=== PATIENT | female | born 1950 | race Hispanic/Latino ===

== ENCOUNTER 2022-05-13 18:44 | Inpatient (IN) | payer MEDICARE, SELFPAY ==
[2022-05-13 19:59] VITALS: BP 127/58; PULSE 96; RESP 16; TEMP 39.6; O2SAT 99; BMI 21.2
--- NOTE | 2022-05-13 20:11 | DI.RAD.S_ITS ---
PROCEDURE: XR CHEST 1V INDICATIONS: suspected sepsis TECHNIQUE: One view of the chest was acquired. COMPARISON: None. FINDINGS: Surgical changes and devices: None. Lungs and pleura: There is hyperinflation of the lungs with flattening of the hemidiaphragms compatible with COPD. There are confluent left perihilar opacities. No pleural effusions or pneumothorax. Mediastinum: Mediastinal contours appear normal. Heart size is enlarged. Bones and chest wall: No suspicious bony lesions. Overlying soft tissues appear unremarkable. IMPRESSION: 1. Confluent left perihilar opacities suggestive of consolidation and pneumonia given clinical history. Dictated by: Geovany Booker M.D. on 05/13/2022 at 20:44 Approved by: Geovany Booker M.D. on 05/13/2022 at 20:44
[2022-05-13 20:47] LABS: Add Manual Diff / Slide Review NO; Basophils Absolute Auto 100 /uL (0-100); Basophils Percent Auto 0.4 % (0-2); Eosinophils Absolute Auto 0 /uL (0-450); Eosinophils Percent Auto 0.1 % (2-4); Hematocrit 30.4 % (36-46); Hemoglobin 10.1 g/dL (12.0-16.0); Lymphocytes Absolute Auto 2200 /uL (1100-4500); Lymphocytes Percent Auto 14.2 % (25-40); Mean Corpuscular HGB Conc 33.3 % (30-36); Mean Corpuscular Hemoglobin 34.7 PG (26-34); Mean Corpuscular Volume 104.1 fL (80-100); Monocytes Absolute Auto 1200 /uL (0-900); Monocytes Percent Auto 7.3 % (3-14); Neutrophils Absolute Auto 12300 /uL (1500-7000); Platelet Count 181 X10^3/uL (150-400); Red Blood Cell Count 2.92 X10^6/uL (4.0-5.2); Red Cell Distribution Width 14.2 % (11.6-14.8); White Blood Cell Count 15.8 X10^3/uL (4.5-11.0)
[2022-05-13 20:53] LABS: Lactate (Lactic Acid) 3.7 mmol/L (0.7-2.1)
[2022-05-13] MEDS: SODIUM CHLORIDE 0.9% 1,000 ML 1000 ML IV (20:53)
--- NOTE | 2022-05-13 20:55 | ED.FEVER ---
HPI - Fever General Chief Complaint: Fever Stated Complaint: fever t-3 possible pnemonia Time Seen by Provider: 05/13/22 19:14 Source: patient Mode of arrival: Ambulatory History of Present Illness HPI Narrative: 71-year-old female nonsmoker without chronic medical history presents with her family in the chief complaint of a few days of fever, shaking chills, shortness of breath, fatigue and productive cough. She is nauseated but denies any vomiting. She denies any headache, runny nose or sore throat. She has no abdominal pain or constipation. She is not been hospitalized for many years. Her fever has been as high as 103 and she admits to shaking, uncontrollable chills Related Data Home Medications Medication Instructions Recorded Confirmed No Known Home Medications 05/13/22 05/13/22 Allergies Allergy/AdvReac Type Severity Reaction Status Date / Time magnesium sulfate Allergy Unknown Verified 05/13/22 20:25 Review of Systems Review of Systems Narrative: GENERAL: See HPI HEENT: Denies sinus pain, ear pain, sore throat, difficulty swallowing, dizziness. RESPIRATORY: See HPI CARDIOVASCULAR: Denies chest pain, palpitations, orthopnea, edema, GASTROINTESTINAL: See HPI : Denies dysuria, frequency, incontinence, hematuria, urinary retention. MUSCULOSKELETAL: denies weakness, joint pain, or bony pain SKIN: Denies rash, skin lesions, or other NEUROLOGIC: Denies weakness, headache, numbness, change in speech, confusion, seizures, incoordination. PSYCHIATRIC: No concerning psychosocial issues. 12 point review of systems is negative except for those stated above Patient History Surgical History History of breast biopsy Family History (Updated 05/13/22 @ 22:14 by HAROON Yeager-MRACY) Mother Hypertension Father Heart attack Social History household members: family Smoking Status: Never smoker alcohol intake: never Smoking Status: Never smoker Exam Narrative Exam Narrative: GENERAL: [71] year old patient appears stated age. Well-developed patient, in mild distress. HEAD: Atraumatic. Normocephalic. EYES: Pupils equal round and reactive. Extraocular motions intact. No scleral icterus. No injection or drainage. ENT: Nose without bleeding, purulent drainage. Throat without erythema, tonsillar hypertrophy or exudate. Airway patent. NECK: Trachea midline. Non tender CARDIOVASCULAR: Tachycardic, regular rate rhythm without murmurs, gallops, or rubs. RESPIRATORY: Increased work of breathing with crackles in bilateral bases GASTROINTESTINAL: Abdomen soft, non-tender, nondistended. EXTREMITIES: No edema or joint tenderness. BACK: Nontender without deformity or crepitance. No flank tenderness. NEURO: AOx3. SKIN: No rash or erythema of visible areas Initial Vital Signs Initial Vital Signs: Vital Signs Temperature 103.2 F H 05/13/22 19:59 Pulse Rate 96 H 05/13/22 19:59 Respiratory Rate 16 05/13/22 19:59 Blood Pressure 127/58 L 05/13/22 19:59 Pulse Oximetry 99 05/13/22 19:59 Oxygen Delivery Method Room Air 05/13/22 19:59 Course Orders Ordered: ED Orders 05/13/22 20:11 XR chest 1V Stat EKG-12 Lead Stat RT Consult Eval and Treat NOW 05/13/22 20:25 Comprehensive Metabolic Panel Stat Lactate (Lactic Acid) Stat Lipase Stat Procalcitonin Stat 05/13/22 20:35 Complete Blood Count AUTO DIFF Stat PTT Partial Thromboplastin Edi Stat Prothrombin Time INR Stat 05/13/22 20:40 Blood Culture Stat COVID19 -Nasal RAPID Stat 05/13/22 20:55 Urine Culture Stat Urine Microscopic Stat Acetaminophen (Acetaminophen 325 Mg Tablet) 650 mg PO Q6H PRN PRN Reason: Fever/Mild Pain (1-3) Last Admin: 05/13/22 23:53 Dose: 650 mg Documented By: ZENY Albuterol/Ipratropium (Albuterol/Ipratropium 3 Ml Ampul) 3 ml INH [id number] [facility] Last Admin: 05/13/22 23:55 Dose: 3 ml Documented By: ELIS Benzonatate (Benzonatate 100 Mg Capsule) 100 mg PO TID PRN PRN Reason: Cough Calcium Carbonate (Calcium Carbonate 500 Mg Tab) 1,000 mg PO Q4HR PRN PRN Reason: Dyspepsia Enoxaparin Sodium (Enoxaparin 40 Mg/0.4 Ml Syringe) 40 mg SUBCUT DAILY [facility] Guaifenesin/Codeine Phosphate (Codeine/Guaifenesin Liquid 5ml Udc) 5 ml PO Q6H PRN PRN Reason: Cough Ceftriaxone Sodium 1,000 mg/ (Sodium Chloride) 100 mls @ 200 mls/hr IV Q24H [facility] Stop: 05/19/22 20:59 Azithromycin 500 mg/ Dextrose 250 mls @ 250 mls/hr IV Q24H [facility] Stop: 05/17/22 20:59 Sodium Chloride (Normal Saline 0.9%) 1,000 mls @ 125 mls/hr IV CONT [facility] Stop: 05/14/22 09:00 Last Admin: 05/13/22 22:47 Dose: 125 mls/hr Documented By: ZENY Naloxone HCl (Naloxone 0.4 Mg/Ml Vial) 0.2 mg IV Q2MIN PRN PRN Reason: Opiate Reversal Ondansetron HCl (Ondansetron 4 Mg Odt) 4 mg SL NOW PRN PRN Reason: Nausea And Vomiting Ondansetron HCl (Ondansetron 4 Mg/2 Ml Inj) 4 mg IV Q2HR PRN PRN Reason: Nausea And Vomiting Prednisone (Prednisone 20 Mg Tablet) 40 mg PO DAILY [facility] Stop: 05/17/22 08:59 Last Admin: 05/13/22 22:51 Dose: Not Given Documented By: ZENY Discontinued Medications Sodium Chloride (Normal Saline 0.9%) 1,000 mls @ 1,000 mls/hr IV BOLUS ONE Stop: 05/13/22 21:10 Last Admin: 05/13/22 20:53 Dose: 1,000 mls/hr Documented By: RB Sodium Chloride (Normal Saline 0.9%) 1,632.93 mls @ 544.31 mls/hr 30 ml/kg infuse over 3 hr (1632.93 ml) IV NOW ONE Stop: 05/13/22 23:54 Last Infusion: 05/13/22 22:23 Dose: 0 mls/hr Documented By: Admin: 05/13/22 20:59 Dose: 544.31 mls/hr Documented By: RB Ceftriaxone Sodium 2,000 mg/ (Sodium Chloride) 100 mls @ 200 mls/hr IV NOW ONE Stop: 05/13/22 20:56 Last Infusion: 05/13/22 21:48 Dose: 0 mls/hr Documented By: Admin: 05/13/22 21:13 Dose: 200 mls/hr Documented By: RB Azithromycin 500 mg/ Dextrose 250 mls @ 250 mls/hr IV NOW ONE Stop: 05/13/22 20:56 Last Admin: 05/14/22 00:20 Dose: 250 mls/hr Documented By: CS Ondansetron HCl (Ondansetron 4 Mg/2 Ml Inj) 4 mg IV NOW PRN PRN Reason: Nausea And Vomiting Vital Signs Vital signs: Vital Signs - 8 hr 05/13/22 19:59 05/13/22 21:05 Temperature 103.2 F H 103.2 F H Pulse Rate 96 H 97 H Respiratory Rate 16 24 Blood Pressure 127/58 L 140/65 Pulse Oximetry 99 98 Oxygen Delivery Method Room Air Room Air MDM - Fever Lab Data 05/13/22 20:35 05/13/22 20:25 Labs: Lab Results 05/13/22 05/13/22 05/13/22 Range/Units 20:25 20:25 20:35 WBC 15.8 H (4.5-11.0) X10^3/uL RBC 2.92 L (4.0-5.2) X10^6/uL Hgb 10.1 L (12.0-16.0) g/dL Hct 30.4 L (36-46) % MCV 104.1 H (80-100) fL MCH 34.7 H (26-34) PG MCHC 33.3 (30-36) % RDW 14.2 (11.6-14.8) % Plt Count 181 (150-400) X10^3/uL Neut % (Auto) 78.0 H (50-75) % Lymph % (Auto) 14.2 L (25-40) % [place] % (Auto) 7.3 (3-14) % Eos % (Auto) 0.1 L (2-4) % Baso % (Auto) 0.4 (0-2) % Neut # (Auto) 85590 H (8825-9951) /uL Lymph # (Auto) 2200 (1378-8611) /uL [place] # (Auto) 1200 H (0-900) /uL Eos # (Auto) 0 (0-450) /uL Baso # (Auto) 100 (0-100) /uL PT (10.1-12.7) SECONDS INR (0.9-1.3) APTT (26-36) SECONDS Sodium 129 L (137-145) mmol/L Potassium 4.2 (3.4-5.1) mmol/L Chloride 95 L (98-107) mmol/L Carbon Dioxide 20 L (22-32) mmol/L BUN 15 (7-17) mg/dL Creatinine 1.20 H (0.52-1.04) mg/dL Estimated GFR 49 L (>60) mL/min BUN/Creatinine Ratio 12.5 (6-22) Glucose 234 H (80-110) mg/dL Hemoglobin A1c (4.0-6.0) % Lactate 3.7 H (0.7-2.1) mmol/L Calcium 8.2 L (8.4-10.2) mg/dL Magnesium (1.6-2.3) mg/dL Total Bilirubin 1.6 H (0.2-1.3) mg/dL AST 35 (14-36) IU/L ALT 34 (<35) IU/L Alkaline Phosphatase 71 (38-126) U/L C-Reactive Protein (<1.0) mg/dL NT-Pro-B Natriuret Pep (<125) pg/mL Total Protein 9.4 H (6.3-8.2) g/dL Albumin 4.1 (3.5-5.0) g/dL Globulin 5.3 H (1.7-4.1) g/dL Albumin/Globulin Ratio 0.8 L (1.0-2.8) Lipase 296 (23-300) U/L Procalcitonin 1.37 H (<0.5) ng/mL Urine RBC (0-5/HPF) Urine WBC (0-5/HPF) Ur Squamous Epith Cells (0-5/HPF) Urine Bacteria (None) Micro UA Comment SARS-CoV-2 (PCR) (Negative) 05/13/22 05/13/22 05/13/22 Range/Units 20:35 20:35 20:35 WBC (4.5-11.0) X10^3/uL RBC (4.0-5.2) X10^6/uL Hgb (12.0-16.0) g/dL Hct (36-46) % MCV (80-100) fL MCH (26-34) PG MCHC (30-36) % RDW (11.6-14.8) % Plt Count (150-400) X10^3/uL Neut % (Auto) (50-75) % Lymph % (Auto) (25-40) % [place] % (Auto) (3-14) % Eos % (Auto) (2-4) % Baso % (Auto) (0-2) % Neut # (Auto) (0900-4220) /uL Lymph # (Auto) (1518-7260) /uL [place] # (Auto) (0-900) /uL Eos # (Auto) (0-450) /uL Baso # (Auto) (0-100) /uL PT 13.6 H (10.1-12.7) SECONDS INR 1.2 (0.9-1.3) APTT 38 H (26-36) SECONDS Sodium (137-145) mmol/L Potassium (3.4-5.1) mmol/L Chloride (98-107) mmol/L Carbon Dioxide (22-32) mmol/L BUN (7-17) mg/dL Creatinine (0.52-1.04) mg/dL Estimated GFR (>60) mL/min BUN/Creatinine Ratio (6-22) Glucose (80-110) mg/dL Hemoglobin A1c (4.0-6.0) % Lactate (0.7-2.1) mmol/L Calcium (8.4-10.2) mg/dL Magnesium (1.6-2.3) mg/dL Total Bilirubin (0.2-1.3) mg/dL AST (14-36) IU/L ALT (<35) IU/L Alkaline Phosphatase (38-126) U/L C-Reactive Protein 8.3 H (<1.0) mg/dL NT-Pro-B Natriuret Pep 1780 H (<125) pg/mL Total Protein (6.3-8.2) g/dL Albumin (3.5-5.0) g/dL Globulin (1.7-4.1) g/dL Albumin/Globulin Ratio (1.0-2.8) Lipase (23-300) U/L Procalcitonin (<0.5) ng/mL Urine RBC (0-5/HPF) Urine WBC (0-5/HPF) Ur Squamous Epith Cells (0-5/HPF) Urine Bacteria (None) Micro UA Comment SARS-CoV-2 (PCR) (Negative) 05/13/22 05/13/22 05/13/22 Range/Units 20:35 20:35 20:40 WBC (4.5-11.0) X10^3/uL RBC (4.0-5.2) X10^6/uL Hgb (12.0-16.0) g/dL Hct (36-46) % MCV (80-100) fL MCH (26-34) PG MCHC (30-36) % RDW (11.6-14.8) % Plt Count (150-400) X10^3/uL Neut % (Auto) (50-75) % Lymph % (Auto) (25-40) % [place] % (Auto) (3-14) % Eos % (Auto) (2-4) % Baso % (Auto) (0-2) % Neut # (Auto) (4727-8448) /uL Lymph # (Auto) (2010-0251) /uL [place] # (Auto) (0-900) /uL Eos # (Auto) (0-450) /uL Baso # (Auto) (0-100) /uL PT (10.1-12.7) SECONDS INR (0.9-1.3) APTT (26-36) SECONDS Sodium (137-145) mmol/L Potassium (3.4-5.1) mmol/L Chloride (98-107) mmol/L Carbon Dioxide (22-32) mmol/L BUN (7-17) mg/dL Creatinine (0.52-1.04) mg/dL Estimated GFR (>60) mL/min BUN/Creatinine Ratio (6-22) Glucose (80-110) mg/dL Hemoglobin A1c 7.3 H (4.0-6.0) % Lactate (0.7-2.1) mmol/L Calcium (8.4-10.2) mg/dL Magnesium 2.0 (1.6-2.3) mg/dL Total Bilirubin (0.2-1.3) mg/dL AST (14-36) IU/L ALT (<35) IU/L Alkaline Phosphatase (38-126) U/L C-Reactive Protein (<1.0) mg/dL NT-Pro-B Natriuret Pep (<125) pg/mL Total Protein (6.3-8.2) g/dL Albumin (3.5-5.0) g/dL Globulin (1.7-4.1) g/dL Albumin/Globulin Ratio (1.0-2.8) Lipase (23-300) U/L Procalcitonin (<0.5) ng/mL Urine RBC (0-5/HPF) Urine WBC (0-5/HPF) Ur Squamous Epith Cells (0-5/HPF) Urine Bacteria (None) Micro UA Comment SARS-CoV-2 (PCR) Negative (Negative) 05/13/22 Range/Units 20:55 WBC (4.5-11.0) X10^3/uL RBC (4.0-5.2) X10^6/uL Hgb (12.0-16.0) g/dL Hct (36-46) % MCV (80-100) fL MCH (26-34) PG MCHC (30-36) % RDW (11.6-14.8) % Plt Count (150-400) X10^3/uL Neut % (Auto) (50-75) % Lymph % (Auto) (25-40) % [place] % (Auto) (3-14) % Eos % (Auto) (2-4) % Baso % (Auto) (0-2) % Neut # (Auto) (8785-7830) /uL Lymph # (Auto) (5935-7198) /uL [place] # (Auto) (0-900) /uL Eos # (Auto) (0-450) /uL Baso # (Auto) (0-100) /uL PT (10.1-12.7) SECONDS INR (0.9-1.3) APTT (26-36) SECONDS Sodium (137-145) mmol/L Potassium (3.4-5.1) mmol/L Chloride (98-107) mmol/L Carbon Dioxide (22-32) mmol/L BUN (7-17) mg/dL Creatinine (0.52-1.04) mg/dL Estimated GFR (>60) mL/min BUN/Creatinine Ratio (6-22) Glucose (80-110) mg/dL Hemoglobin A1c (4.0-6.0) % Lactate (0.7-2.1) mmol/L Calcium (8.4-10.2) mg/dL Magnesium (1.6-2.3) mg/dL Total Bilirubin (0.2-1.3) mg/dL AST (14-36) IU/L ALT (<35) IU/L Alkaline Phosphatase (38-126) U/L C-Reactive Protein (<1.0) mg/dL NT-Pro-B Natriuret Pep (<125) pg/mL Total Protein (6.3-8.2) g/dL Albumin (3.5-5.0) g/dL Globulin (1.7-4.1) g/dL Albumin/Globulin Ratio (1.0-2.8) Lipase (23-300) U/L Procalcitonin (<0.5) ng/mL Urine RBC 0-1/hpf (0-5/HPF) Urine WBC None seen (0-5/HPF) Ur Squamous Epith Cells 0-1 /hpf (0-5/HPF) Urine Bacteria None seen (None) Micro UA Comment * SARS-CoV-2 (PCR) (Negative) Urine Dip Bedside Urine Glucose 1000 mg/dl Bedside Urine Bilirubin - Negative Bedside Urine Ketone - Negative Urine Specific [place] 1.015 Bedside Urine Occult Blood + Bedside Urine pH 6 Bedside Urine Protein ++ 100 Bedside Urine Urobilinogen - Negative Bedside Urine Nitrite - Negative Bedside Urine Leukocytes - Negative Esterase Imaging Data Chest x-ray: Radiologist's Impression: Multifocal pneumonia MDM Narrative Medical decision making narrative: [71] year old patient presents with fever, shaking chills, cough and shortness of breath Multiple etiologies for patient's symptoms considered including, but not limited to: [Sepsis due to pneumonia versus other] Prior Charts not available to be reviewed in our EMR Primary Historian: patient Labs reviewed and interpreted by myself: Leukocytosis with left shift, slightly anemic at 10 and 30, sodium 129, creatinine 1.2, lactate critically elevated at 3.7, procalcitonin still pending, COVID negative Imaging reviewed: Multifocal pneumonia Patient with fever, chills, cough and shortness of breath meets sepsis criteria and upon receipt of lactate met severe sepsis criteria, fluids at 30 cc/kilogram, antibiotics in the form of Rocephin and azithromycin, blood cultures all ordered and are pending, patient requires hospitalization for further treatment and stabilization of her condition Discharge Plan Departure Patient Disposition: Admitted As Inpatient Clinical Impression: Severe sepsis, Bilateral pneumonia Admit Date/Time: 05/13/22 21:11 Admit Provider: Sue Smart
[2022-05-13 20:56] LABS: INR 1.2 (0.9-1.3); Prothrombin Time 13.6 SECONDS (10.1-12.7)
[2022-05-13 20:59] LABS: PTT Partial Thromboplastin Tim 38 SECONDS (26-36)
[2022-05-13] MEDS: SODIUM CHLORIDE 0.9% 1,632.93 ML 544.31 ML IV (20:59)
[2022-05-13 21:02] LABS: Alanine Aminotransferase 34 IU/L (<35); Albumin 4.1 g/dL (3.5-5.0); Albumin Globulin Ratio 0.8 (1.0-2.8); Alkaline Phosphatase 71 U/L (38-126); Aspartate Aminotransferase 35 IU/L (14-36); BUN Creatinine Ratio 12.5 (6-22); Bilirubin Total 1.6 mg/dL (0.2-1.3); Blood Urea Nitrogen 15 mg/dL (7-17); Calcium 8.2 mg/dL (8.4-10.2); Carbon Dioxide 20 mmol/L (22-32); Chloride 95 mmol/L (98-107); Estimated Glomerular Filt Rate 49 mL/min (>60); Globulin 5.3 g/dL (1.7-4.1); Glucose 234 mg/dL (80-110); HEMOLYSIS < 15 (0-50); Lipase 296 U/L (23-300); Potassium 4.2 mmol/L (3.4-5.1); Sodium 129 mmol/L (137-145); Total Protein 9.4 g/dL (6.3-8.2)
[2022-05-13 21:05] VITALS: BP 140/65; PULSE 97; RESP 24; TEMP 39.6; O2SAT 98
[2022-05-13 21:05] LABS: COVID19 -Nasal RAPID Negative (Negative)
[2022-05-13] MEDS: cefTRIAXone 2,000 MG in SODIUM CHLORIDE 0.9% 100 ML 200 MG IV (21:13)
[2022-05-13 21:19] LABS: Procalcitonin 1.37 ng/mL (<0.5)
[2022-05-13 21:27] LABS: Bacteria Urine None Seen; RBC Urine 0-1/HPF (0-5/HPF); Squamous Epithelial Cell Urine 0-1 /HPF (0-5/HPF); WBC Urine None Seen (0-5/HPF)
--- NOTE | 2022-05-13 21:35 | P.HP_ITS ---
History of Present Illness History of Present Illness Date Patient Seen: 05/13/22 Time Patient Seen: 21:36 Chief complaint: fever t-3 possible pnemonia Narrative: Sruthi Fong is a 71-year-old female with no known medical history who takes no medications presented to the ED with 3l days of fever, body aches, chills, VARGAS, productive yellow cough, pleuritic chest pain from coughing, nausea, tachypneic, tachycardic, with fever and worsening shortness of breath. Patient's O2 saturations are in the 90s on room air but does become extensively short of breath with any sort of movement or getting up to the restroom. On admit patient denies changes in vision, difficulty swallowing, speech impairment, weakness, numbness, tingling, difficulty with ambulation, recent falls, head injury, LOC, recent exposure to illness, vomiting, urinary incontinence/retention, dysuria, frequency, urgency, hematuria, bowel changes, constipation, incontinence, melena, rashes, recent changes to medication, illness, injury, or trauma. Patient denies any cardiac or respiratory history nonsmoker, has been vaccinated against flu and COVID unsure as to pneumonia vaccination status. Admit temp 103.2?, 140/65, 97, 24, O2 saturation 98% on room air. WBC 15.8, notes 12,300, mono 1200, HGB 10 0.1/30.4, MCV 104.1, sodium 129, chloride 95, bicarb 20, creatinine 1.20, GFR 49, glucose 234-nothing in our records for comparison. Bili 1.6, calcium 8.2, lactate 3.7, procalcitonin 1.37, UA is pending, negative COVID. Chest x-ray confluent left perihilar opacities likely left lobe pneumonia. Patient admitted for sepsis without shock metabolic/infectious/renal with low-sodium and BUTCH hyperglycemia. Patient History Surgical History History of breast biopsy Family & Social History Family History (Updated 05/13/22 @ 22:14 by PIA Yeager) Mother Hypertension Father Heart attack Safety & Behavioral: Feels Safe in Current Yes Environment Been Physically Hurt or No Threatened By a Person Tobacco & Substance use: Smoking Status Never smoker Meds Home Medications and Allergies Home Medications Medication Instructions Recorded Confirmed Type No Known Home Medications 05/13/22 05/13/22 History Allergies Allergy/AdvReac Type Severity Reaction Status Date / Time magnesium sulfate Allergy Unknown Verified 05/13/22 20:25 Review of Systems Review of Systems Narrative: All 12 point systems reviewed with the patient and are negative except otherwise documented. Exam Vital Signs (past 8 hours): - 05/13/22 19:59 05/13/22 21:05 Temperature 103.2 F H 103.2 F H Pulse Rate 96 H 97 H Respiratory Rate 16 24 Blood Pressure 127/58 L 140/65 Pulse Oximetry 99 98 Oxygen Delivery Method Room Air Room Air Oxygen Delivery Method Room Air Narrative Exam Narrative: General: Patient is a thin small framed female, who initially after returning from the restroom was significantly short of breath tachypneic, but after resting in bed for a few minutes improved and was in no acute distress at this time. Patient appears quite volume depleted at this time. HEENT: Normocephalic, atraumatic, extraocular muscles intact, oral pharynx is clear and mucous membranes are dry. Neck is supple and symmetric, trachea is midline, no adenopathy, no thyroid enlargement, nontender, no masses palpated. Negative for JVD Chest: Normal AP diameter and contour without kyphoscoliosis, no nasal flaring, retractions, Positive tachypneic labored breathing with activity. Lungs: Auscultation of all lung collins crackles in bilateral bases Cardio: regular rate and rhythm without murmur, rubs, or gallops, no carotid bruit, no cardiac pulsations present. Abdomen: Soft nontender, negative for organomegaly, or masses. Bowel sounds are present in all 4 quadrants without guarding or rebound, no CVA tenderness. Musculoskeletal: Muscle strength and tone are equal within normal limits, no deformity, crepitus, effusions, cyanosis, clubbing or edema present. Full range of motion intact radial and pedal pulses are normal. Skin: Warm dry and intact without rashes, ulcerations or petechiae. Neuro: Alert and orientated x3, moves all extremities, sensation to touch intact, no gross deficits noted of cranial nerves. Psych: Patient has a well-kept appearance, appropriate affect, mental status attitude thought context and judgment are appropriate for age. Objective Labs 05/13/22 20:35 05/13/22 20:25 Labs: Laboratory Results - last 24 hr 05/13/22 05/13/22 05/13/22 20:25 20:25 20:35 WBC 15.8 H RBC 2.92 L Hgb 10.1 L Hct 30.4 L MCV 104.1 H MCH 34.7 H MCHC 33.3 RDW 14.2 Plt Count 181 Neut % (Auto) 78.0 H Lymph % (Auto) 14.2 L [place] % (Auto) 7.3 Eos % (Auto) 0.1 L Baso % (Auto) 0.4 Neut # (Auto) 84685 H Lymph # (Auto) 2200 [place] # (Auto) 1200 H Eos # (Auto) 0 Baso # (Auto) 100 PT INR APTT Sodium 129 L Potassium 4.2 Chloride 95 L Carbon Dioxide 20 L BUN 15 Creatinine 1.20 H Estimated GFR 49 L BUN/Creatinine Ratio 12.5 Glucose 234 H Lactate 3.7 H Calcium 8.2 L Total Bilirubin 1.6 H AST 35 ALT 34 Alkaline Phosphatase 71 Total Protein 9.4 H Albumin 4.1 Globulin 5.3 H Albumin/Globulin Ratio 0.8 L Lipase 296 Procalcitonin 1.37 H Urine RBC Urine WBC Ur Squamous Epith Cells Urine Bacteria Micro UA Comment SARS-CoV-2 (PCR) 05/13/22 05/13/22 05/13/22 20:35 20:40 20:55 WBC RBC Hgb Hct MCV MCH MCHC RDW Plt Count Neut % (Auto) Lymph % (Auto) [place] % (Auto) Eos % (Auto) Baso % (Auto) Neut # (Auto) Lymph # (Auto) [place] # (Auto) Eos # (Auto) Baso # (Auto) PT 13.6 H INR 1.2 APTT 38 H Sodium Potassium Chloride Carbon Dioxide BUN Creatinine Estimated GFR BUN/Creatinine Ratio Glucose Lactate Calcium Total Bilirubin AST ALT Alkaline Phosphatase Total Protein Albumin Globulin Albumin/Globulin Ratio Lipase Procalcitonin Urine RBC 0-1/hpf Urine WBC None seen Ur Squamous Epith Cells 0-1 /hpf Urine Bacteria None seen Micro UA Comment * SARS-CoV-2 (PCR) Negative Assessment & Plan Assessment & Plan narrative: Sruthi Fong is a 71-year-old female with no known medical history, who takes no medications who presented to the ED febrile, tachycardic, and tachypneic following 3 days of fever, cough, body aches, chills. Patient is admitted for sepsis without shock, secondary to left lobe pneumonia, BUTCH, hyperglycemia, and hyponatremia. Patient will require aggressive hydration, antibiotic therapy to be directed by cultures. 1. Sepsis without septic shock, metabolic/renal, acute, present on admission -likely CAP (left lower lobe pneumonia)-febrile, tachypneic, tachycardic-patient is not requiring oxygenation at this time no acute respiratory failure. -Sofa Score:2, Curb-65:1, Admit temp 103.2?, 140/65, 97, 24, O2 saturation 98% on room air. -WBC 15.8, notes 12,300, mono 1200, HGB 10 0.1/30.4, MCV 104.1, bili 1.6, lactate 3.7, procalcitonin 1.37, UA is pending, negative COVID. -Chest x-ray confluent left perihilar opacities likely left lobe pneumonia. -sepsis bolus initiated in ED along with azithromycin and Rocephin -blood cultures and sputum cultures ordered/pending -ordered repeat lactate, BNP, CRP, influenza a/B, RSV -continue azithromycin and Rocephin for anti pneumococcal beta-lactam and macrolide for coverage-pending cultures -antiemetics to control fever -respiratory consult: DuoNeb q.4 hours while awake, incentive spirometry, prednisone 40 mg p.o. q.day x4 days -Tessalon Perles, guaifenesin with codeine as needed 2. BUTCH with hyperglycemia, acute, present on admission -sodium 129, chloride 95, bicarb 20, creatinine 1.20, GFR 49, glucose 234- nothing in our records for comparison. -A1C ordered -avoid nephrotoxic medications -trend renal function -NS @125cc/hr over night following Sepsis bolus 3. Malnutrition, mild, severe, acute on chronic, present on admission -as evidence by BMI 20.3 -patient's malnutrition places them at high risk for medical and surgical complications in relation to acute illness/chronic illness. This increases the difficulty in complexity of medical management and increases the chances poor outcomes such as mortality and morbidity as well as impaired wound healing, and immune suppression. -dietary consult ordered to evaluate and implement steps to improve caloric intake and nutrition. Code status:Full Surrogate decision maker: Sister Annalee Freitas COVID PCR:Negative COVID vaccination: Fully vaccinated DVT/VTE prophylaxis: Lovenox and SCDs Disposition: Patient admitted to acute care for the treatment of likely community-acquired bacterial pneumonia, expected length of stay greater than 2 midnights. I have utilized all available immediate resources to obtain, update, or review the patient's current medications. I confirmed that the patient's advanced care plan is present, Code status is documented and/or surrogate decision maker is listed in the patient's medical record. I have personally reviewed patient's chart notes from PCP, specialists, diagnostic imaging, and laboratory results. Time Spent With Patient Critical Care time: I spent a total of [] minutes of critical care time on this patient's care today; this time is exclusive of procedural time.
[2022-05-13 22:05] VITALS: BP 147/73; PULSE 103; RESP 18; TEMP 36.9; O2SAT 97
[2022-05-13 22:10] LABS: NT-proBNP (BNP-Adult 18+) 1780 pg/mL (<125)
[2022-05-13 22:16] VITALS: BMI 20.2
[2022-05-13 22:21] VITALS: BP 147/72; PULSE 103; RESP 18; TEMP 36.9; O2SAT 98
[2022-05-13 22:32] LABS: Reflexed Lactate in 2 Hours Y
[2022-05-13] MEDS: SODIUM CHLORIDE 0.9% 1,000 ML 125 ML IV (22:47)
[2022-05-13 23:03] LABS: Lactate 2HR (Lactic Acid Rflx) 1.9 mmol/L (0.7-2.1)
[2022-05-13 23:29] LABS: Influenza A - CEPHEID Flu A NEGATIVE (NEGATIVE); Influenza B - CEPHEID Flu B NEGATIVE (NEGATIVE)
[2022-05-13 23:32] LABS: Respiratory Syncytial Virus Not Detected (Not Detect)
[2022-05-13] MEDS: ACETAMINOPHEN 325 MG TABLET 650 MG PO (23:53)
[2022-05-13 23:55] VITALS: PULSE 97; RESP 24; O2SAT 96
[2022-05-13] MEDS: ALBUTEROL/IPRATROPIUM 3 ML AMPUL INH (23:55)
[2022-05-14] VITALS (8 sets, daily range): BP systolic 109–136; BP diastolic 62–66; PULSE 76–99; RESP 16–18; TEMP 36.1–37.3; O2SAT 97–100; BMI 20.2
[2022-05-14] MEDS: AZITHROMYCIN 500 MG in DEXTROSE 5% IN WATER 250 ML 250 MG IV ×2 (00:20→20:49)
[2022-05-14 00:56] LABS: C-Reactive Protein Quant 8.3 mg/dL (<1.0)
[2022-05-14 00:59] LABS: Hemoglobin A1C% w Est Avg Glu 7.3 % (4.0-6.0)
[2022-05-14] MEDS: ALBUTEROL/IPRATROPIUM 3 ML AMPUL INH ×3 (07:29→22:37)
[2022-05-14 08:55] LABS: Add Manual Diff / Slide Review NO; Basophils Absolute Auto 100 /uL (0-100); Basophils Percent Auto 0.4 % (0-2); Eosinophils Absolute Auto 0 /uL (0-450); Hematocrit 27.5 % (36-46); Hemoglobin 8.9 g/dL (12.0-16.0); Lymphocytes Absolute Auto 3500 /uL (1100-4500); Lymphocytes Percent Auto 23.6 % (25-40); Mean Corpuscular HGB Conc 32.2 % (30-36); Mean Corpuscular Hemoglobin 34.2 PG (26-34); Mean Corpuscular Volume 106.2 fL (80-100); Monocytes Absolute Auto 1100 /uL (0-900); Monocytes Percent Auto 7.3 % (3-14); Neutrophils Absolute Auto 10200 /uL (1500-7000); Neutrophils Percent Auto 68.7 % (50-75); Platelet Count 152 X10^3/uL (150-400); Red Blood Cell Count 2.59 X10^6/uL (4.0-5.2); Red Cell Distribution Width 14.1 % (11.6-14.8); White Blood Cell Count 14.8 X10^3/uL (4.5-11.0)
--- NOTE | 2022-05-14 08:58 | PT.IIE ---
Current Diagnoses Sepsis, unspecified organism (05/13/22) Surgical History (Last Reviewed 05/13/22 @ 22:13 by HAROON Yeager-) History of breast biopsy Physical Therapy Inpatient Evaluation/Re-Eval M1 PT/OT-IP Prior Functional Status Start: 05/14/22 08:13 Freq: NEEDED Status: Active Protocol: Document 05/14/22 08:58 DLM (Rec: 05/14/22 09:08 DL [id number]) Medical Review Prior Functional Status Medical History Reviewed Yes Diet/Fluid Consistency Regular Communication WNL, glasses Mobility and Gait Independent without device in community Activities of Daily Living and IADL's Independent, drives, works as realtor Social History Household Members family Living Arrangements House Number of Floors (Floors) One Floor Number of Stairs To Enter/Railing? flight of steps to get in from garage Employment Status Self-Employed M2 PT-IP Current Condition Start: 05/14/22 08:13 Freq: NEEDED Status: Active Protocol: Document 05/14/22 08:58 DLM (Rec: 05/14/22 09:08 DL [id number]) Physical Therapy Current Condition Current Condition Evaluation Date 05/14/22 Treatment Diagnosis Pneumonia, decreased balance Onset Date 05/13/22 M3 PT-IP Subjective Start: 05/14/22 08:13 Freq: NEEDED Status: Active Protocol: Document 05/14/22 08:58 DLM (Rec: 05/14/22 09:08 DL [id number]) Subjective Physical Therapy Visit Type Type Initial Evaluation Visit Start Time 08:30 Visit Stop Time 08:58 Total Visit Minutes 28 Number of INDEPENDENT CROP CONSULTANT Visits 0 Physical Therapy Visit Comments Patient Comments She reports feeling better today. She was sick at home for at least 3 days before she came to the hospital. Patient Goals Return home Therapy Pain Assessment Pain When Pain Assessed During Mobility Pain Present Pain Present Denied Pain M4 PT-IP Mobility and Gait Start: 05/14/22 08:13 Freq: NEEDED Status: Active Protocol: Document 05/14/22 08:58 DLM (Rec: 05/14/22 09:08 DLM [id number]) PT-Bed Mobility Assessment Supine to Sit Supine to Sit Independent Sit to Supine Sit to Supine Independent Scooting Scooting to Edge of Bed Independent Scooting Up and Down in Bed Independent PT-Transfer Assessment Sit to and From Stand Sit to and from Stand Independent,Use of Upper Extremities Equipment Transfer Assistive Device None Transfers Transfer Destination Chair Transfer Technique Stand Step Pivot Transfer Ability Level of Assist Independent,Standby Assistance ,Use of Upper Extremities Gait Assessment Gait Gait Assistance Required: Standby Assistance Distance (Feet) 150 Able to Maintain Weight Bearing Status Yes During Gait Assistive Devices Assistive Device None Factors Limiting Gait Function Factors Limiting Gait Function Decreased Activity Tolerance, Poor Balance Comments Gait Comments lateral losse of balance with independent recovery during gait in the yang, mild shortness of breath during gait in the yang with mask on, O2 sats 99% when back in her room after gait Stair Climbing Assessment Comments Stair Climbing Comments did not complete this visit due to the arrival of breakfast and SOB during gait PT-Balance Assessment Sitting Balance and Reactions Static Sitting Balance Ability Normal Dynamic Sitting Balance Ability Normal Standing Balance and Reactions Static Standing Balance Ability Good Dynamic Standing Balance Ability Fair Device Used none M5 PT-IP Objective Assessments Start: 05/14/22 08:13 Freq: NEEDED Status: Active Protocol: Document 05/14/22 08:58 DLM (Rec: 05/14/22 09:08 DL [id number]) Orientation Orientation/Cognition Level of Alertness Alert Orientation Name,Age,Birthday,Month,Date, Year,Day of Week,Place, Situation Language Function Ability No Deficits Noted Memory Description No Deficits Noted Comments decreased awareness of need for safety in hospital environment, needs cuing for lines and how to decrease fall risks Gross Range of Motion Upper Extremity ROM Assessment Within Functional Limits Lower Extremity ROM Assessment Within Functional Limits Strength Upper Extremity Strength Assessment Within Functional Limits Lower Extremity Strength Assessment Within Functional Limits Coordination Assessment Gross Coordination Gross Coordination Impaired Assessment Finger to Nose Test Minimal Impairment Coordination Comments mild decrease in UE coordination she poured her sugar onto the tray missing her cup of coffee Sensation Assessment Sensation Gross Sensation Right LE Impaired,Left LE Impaired Sensation Description Numbness,Tingling Comments Sensation Comments she reports chronic numbness/ tinging in her feet, no changes today Muscle Tone Muscle Tone WNL Yes M6 PT-IP Treatment Start: 05/14/22 08:13 Freq: NEEDED Status: Active Protocol: Document 05/14/22 08:58 DLM (Rec: 05/14/22 09:08 DL [id number]) Physical Therapy Treatment Other Treatments Other Treatment Performed pt up to recliner and set up for breakfast M7 PT-IP Assessment and Plan Start: 05/14/22 08:13 Freq: NEEDED Status: Active Protocol: Document 05/14/22 08:58 DLM (Rec: 05/14/22 09:08 DLM [id number]) PT Summary Assessment and Plan Potential Rehabilitation Potential Good Status of Condition at Evaluation Evolving Summary Impairments Balance,Gait,Activity Tolerance Assessment Summary Sruthi is alert and resting in bed. She reports she did not sleep well due to noise from the hospital bed. She is feeling better today over-all. She is independent in bed mobility and transfers but shows decreased balance during gait without device. She had lateral losses of balance which she was able to self recover. Her losses of balance increase her risk for falls. She also needs assists to manage her lines during mobility. Pt has mild shortness of breath with gait in the yang with mask in place but O2 sats are WNL. She recovered well with seated rest break. Recommend 1-2 more physical therapy visits for gait and balance training. Will progress to stair training as her respiratory status continues to improve. Anticipate she will be safe to discharge home when medically stable. Goals Gait Goal Independent Gait Distance 250 feet Other Goals Up/down 10 steps with rail, independent Days to Meet Goals 3 Frequency of Treatment Frequency Of Treatment Once a Day Treatment Plan Physical Therapy Treatment Plan Gait Training,Therapeutic Exercise,Balance Retraining, Discharge Planning Other Recommendations and Next Treatment stair training as her Focus breathing improves Precautions Other Precautions monitor for shortness of breath Recommendations To Nursing Amount of Assist Needed Standby Assistance Discharge Recommendations PT Discharge Recommendations Home with Assistance Other Discharge Recommendations family support at discharge Transportation Needs at Discharge Private Vehicle
[2022-05-14 09:14] LABS: Alanine Aminotransferase 18 IU/L (<35); Albumin 3.1 g/dL (3.5-5.0); Albumin Globulin Ratio 0.7 (1.0-2.8); Alkaline Phosphatase 56 U/L (38-126); Aspartate Aminotransferase 26 IU/L (14-36); BUN Creatinine Ratio 14.3 (6-22); Bilirubin Total 0.8 mg/dL (0.2-1.3); Blood Urea Nitrogen 13 mg/dL (7-17); Calcium 7.2 mg/dL (8.4-10.2); Carbon Dioxide 18 mmol/L (22-32); Chloride 105 mmol/L (98-107); Estimated Glomerular Filt Rate > 60 mL/min (>60); Globulin 4.4 g/dL (1.7-4.1); Glucose 120 mg/dL (80-110); HEMOLYSIS < 15 (0-50); Potassium 3.7 mmol/L (3.4-5.1); Sodium 135 mmol/L (137-145); Total Protein 7.5 g/dL (6.3-8.2)
[2022-05-14 09:15] LABS: Lactate (Lactic Acid) 2.1 mmol/L (0.7-2.1)
[2022-05-14 09:47] LABS: INR 1.3 (0.9-1.3); Prothrombin Time 14.4 SECONDS (10.1-12.7)
[2022-05-14] MEDS: ENOXAPARIN 40 MG/0.4 ML SYRINGE SUBCUT (09:52)
[2022-05-14] MEDS: predniSONE 20 MG TABLET 40 MG PO (09:52)
[2022-05-14 10:23] LABS: Folate 13.6 ng/mL (2.76-20.0); Vitamin B12 624 pg/mL (239-931)
--- NOTE | 2022-05-14 10:28 | OT.IPNOTE ---
Pt here for PNA and states has no OT needs and able to give pt information for energy conservation, no charge.
[2022-05-14 10:50] LABS: Reflexed Lactate in 2 Hours Y
--- NOTE | 2022-05-14 11:03 | CM.DANOTE ---
DCP: Case received, EMR reviewed and met with patient. Introduced self and role. Was able to obtain information regarding patient's baseline activity status prior to hospitalization. DCP assessment completed with information currently available. Patient is a 71 year old female who admitted yesterday evening to the care of the hospitalist team. PCP: None currently Payer: confirmed: Medicare. Patient came to the hospital via private vehicle secondary to having chills, shortness of breath, fatigue. Patient has been febrile, temp up to 103. Patient was diagnosed with bilateral pneumonia. Patient also noted to have hyperglycemia, hyponatremia, BUTCH. Met with patient in her room. Prior, had been in the hallway ambulating with P.T. Confirmed that she resides in [place], has family nearby. 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 Confirmed that she does not have a primary care provider, asked her if she was interested in the list, she indicated, she could do her own research. P: DCP to continue to follow for needs. Plan is home when deemed medically stable. Arlene Garcia RN/Billet Shearer Discharge Planning/Care Management CM Discharge Assessment Start: 05/14/22 10:51 Freq: Status: Active Protocol: Document 05/14/22 10:53 (Rec: 05/14/22 10:54 [id number]) Discharge Planning Assessment Assigned Apprentice Arlene Garcia RN/Billet Shearer Advance Directives? No History Provided By Patient,Medical Record Prior Living Arrangements House Household Members family Type of transporation used prior to Drives own vehicle admit Independent with ADL's Yes Is patient alert and oriented? Yes Caregiver for Another No Barriers to Discharge No Comment Patient has no primary care provider, can give her resources Discharge Plan Home Transportation Arrangement Family Referrals Initiated None needed Whiteboard Updated in Patient Room with Yes name and ext. # of Apprentice Review Status In Process Next Review Type Continued Stay Review
[2022-05-14 11:15] LABS: Lactate 2HR (Lactic Acid Rflx) 3.2 mmol/L (0.7-2.1)
[2022-05-14 17:35] LABS: Lactate (Lactic Acid) 1.6 mmol/L (0.7-2.1)
--- NOTE | 2022-05-14 17:37 | PM.PN.1 ---
Subjective Subjective Interval history: 71-year-old female with known history of prediabetes was admitted last night with sepsis and presumed BUTCH secondary to community-acquired pneumonia Patient initially was febrile to 103.2. She was also noted to have a lactic acidosis. She was initiated on Rocephin and azithromycin. She is not required any oxygen. Overnight, she defervesced and has been afebrile. Reports she does not have a significant cough or sputum production. She does note she is feeling better. Exam Vital Signs (past 8 hours): - 05/14/22 13:00 Temperature 99.2 F Pulse Rate 87 Respiratory Rate 17 Blood Pressure 118/63 Pulse Oximetry 98 Oxygen Flow Rate 0 Fraction of Inspired Oxygen 21 SaO2/FiO2 Ratio 457 Oxygen Delivery Method Room Air Oxygen Flow Rate 0 Narrative Exam Narrative: GEN: Elderly female, Alert and oriented x 3, NAD HEENT:NC, Face symmetric CHEST: Respiratory excursions symmetric, mild bibasilar crackles, otherwise CTAB CV: RRR, no M/R/G ABD: Soft, NT/ND, BT present in all 4 quadrants, no organomegaly or masses EXTR: warm, well perfused, no C/C/E SKIN: warm and dry, no rash NEURO: Alert and oriented x 3, nonfocal Objective Labs 05/14/22 08:25 05/14/22 08:25 Labs: Laboratory Results - last 24 hr 05/13/22 05/13/22 05/13/22 20:25 20:25 20:35 WBC 15.8 H RBC 2.92 L Hgb 10.1 L Hct 30.4 L MCV 104.1 H MCH 34.7 H MCHC 33.3 RDW 14.2 Plt Count 181 Neut % (Auto) 78.0 H Lymph % (Auto) 14.2 L Harris % (Auto) 7.3 Eos % (Auto) 0.1 L Baso % (Auto) 0.4 Neut # (Auto) 05397 H Lymph # (Auto) 2200 Harris # (Auto) 1200 H Eos # (Auto) 0 Baso # (Auto) 100 PT INR APTT Sodium 129 L Potassium 4.2 Chloride 95 L Carbon Dioxide 20 L BUN 15 Creatinine 1.20 H Estimated GFR 49 L BUN/Creatinine Ratio 12.5 Glucose 234 H Hemoglobin A1c Lactate 3.7 H Calcium 8.2 L Magnesium Total Bilirubin 1.6 H AST 35 ALT 34 Alkaline Phosphatase 71 C-Reactive Protein NT-Pro-B Natriuret Pep Total Protein 9.4 H Albumin 4.1 Globulin 5.3 H Albumin/Globulin Ratio 0.8 L Lipase 296 Vitamin B12 Folate Procalcitonin 1.37 H Urine RBC Urine WBC Ur Squamous Epith Cells Urine Bacteria Micro UA Comment SARS-CoV-2 (PCR) Influenza A (RT-PCR) Influenza B (RT-PCR) RSV (PCR) 05/13/22 05/13/22 05/13/22 20:35 20:35 20:35 WBC RBC Hgb Hct MCV MCH MCHC RDW Plt Count Neut % (Auto) Lymph % (Auto) Harris % (Auto) Eos % (Auto) Baso % (Auto) Neut # (Auto) Lymph # (Auto) Harris # (Auto) Eos # (Auto) Baso # (Auto) PT 13.6 H INR 1.2 APTT 38 H Sodium Potassium Chloride Carbon Dioxide BUN Creatinine Estimated GFR BUN/Creatinine Ratio Glucose Hemoglobin A1c Lactate Calcium Magnesium Total Bilirubin AST ALT Alkaline Phosphatase C-Reactive Protein 8.3 H NT-Pro-B Natriuret Pep 1780 H Total Protein Albumin Globulin Albumin/Globulin Ratio Lipase Vitamin B12 Folate Procalcitonin Urine RBC Urine WBC Ur Squamous Epith Cells Urine Bacteria Micro UA Comment SARS-CoV-2 (PCR) Influenza A (RT-PCR) Influenza B (RT-PCR) RSV (PCR) 05/13/22 05/13/22 05/13/22 20:35 20:35 20:40 WBC RBC Hgb Hct MCV MCH MCHC RDW Plt Count Neut % (Auto) Lymph % (Auto) Harris % (Auto) Eos % (Auto) Baso % (Auto) Neut # (Auto) Lymph # (Auto) Harris # (Auto) Eos # (Auto) Baso # (Auto) PT INR APTT Sodium Potassium Chloride Carbon Dioxide BUN Creatinine Estimated GFR BUN/Creatinine Ratio Glucose Hemoglobin A1c 7.3 H Lactate Calcium Magnesium 2.0 Total Bilirubin AST ALT Alkaline Phosphatase C-Reactive Protein NT-Pro-B Natriuret Pep Total Protein Albumin Globulin Albumin/Globulin Ratio Lipase Vitamin B12 Folate Procalcitonin Urine RBC Urine WBC Ur Squamous Epith Cells Urine Bacteria Micro UA Comment SARS-CoV-2 (PCR) Negative Influenza A (RT-PCR) Influenza B (RT-PCR) RSV (PCR) 05/13/22 05/13/22 05/13/22 20:55 22:42 22:48 WBC RBC Hgb Hct MCV MCH MCHC RDW Plt Count Neut % (Auto) Lymph % (Auto) Harris % (Auto) Eos % (Auto) Baso % (Auto) Neut # (Auto) Lymph # (Auto) Harris # (Auto) Eos # (Auto) Baso # (Auto) PT INR APTT Sodium Potassium Chloride Carbon Dioxide BUN Creatinine Estimated GFR BUN/Creatinine Ratio Glucose Hemoglobin A1c Lactate 1.9 Calcium Magnesium Total Bilirubin AST ALT Alkaline Phosphatase C-Reactive Protein NT-Pro-B Natriuret Pep Total Protein Albumin Globulin Albumin/Globulin Ratio Lipase Vitamin B12 Folate Procalcitonin Urine RBC 0-1/hpf Urine WBC None seen Ur Squamous Epith Cells 0-1 /hpf Urine Bacteria None seen Micro UA Comment * SARS-CoV-2 (PCR) Influenza A (RT-PCR) Flu a negative Influenza B (RT-PCR) Flu b negative RSV (PCR) 05/13/22 05/14/22 05/14/22 22:48 08:25 08:25 WBC 14.8 H RBC 2.59 L Hgb 8.9 L Hct 27.5 L MCV 106.2 H MCH 34.2 H MCHC 32.2 RDW 14.1 Plt Count 152 Neut % (Auto) 68.7 Lymph % (Auto) 23.6 L Harris % (Auto) 7.3 Eos % (Auto) 0.0 L Baso % (Auto) 0.4 Neut # (Auto) 71993 H Lymph # (Auto) 3500 Harris # (Auto) 1100 H Eos # (Auto) 0 Baso # (Auto) 100 PT 14.4 H INR 1.3 APTT Sodium Potassium Chloride Carbon Dioxide BUN Creatinine Estimated GFR BUN/Creatinine Ratio Glucose Hemoglobin A1c Lactate Calcium Magnesium Total Bilirubin AST ALT Alkaline Phosphatase C-Reactive Protein NT-Pro-B Natriuret Pep Total Protein Albumin Globulin Albumin/Globulin Ratio Lipase Vitamin B12 Folate Procalcitonin Urine RBC Urine WBC Ur Squamous Epith Cells Urine Bacteria Micro UA Comment SARS-CoV-2 (PCR) Influenza A (RT-PCR) Influenza B (RT-PCR) RSV (PCR) Not detected 05/14/22 05/14/22 05/14/22 08:25 08:25 08:25 WBC RBC Hgb Hct MCV MCH MCHC RDW Plt Count Neut % (Auto) Lymph % (Auto) Harris % (Auto) Eos % (Auto) Baso % (Auto) Neut # (Auto) Lymph # (Auto) Harris # (Auto) Eos # (Auto) Baso # (Auto) PT INR APTT Sodium 135 L Potassium 3.7 Chloride 105 Carbon Dioxide 18 L BUN 13 Creatinine 0.91 Estimated GFR > 60 BUN/Creatinine Ratio 14.3 Glucose 120 H D Hemoglobin A1c Lactate 2.1 Calcium 7.2 L Magnesium Total Bilirubin 0.8 AST 26 ALT 18 Alkaline Phosphatase 56 C-Reactive Protein NT-Pro-B Natriuret Pep Total Protein 7.5 Albumin 3.1 L Globulin 4.4 H Albumin/Globulin Ratio 0.7 L Lipase Vitamin B12 624 Folate 13.6 Procalcitonin Urine RBC Urine WBC Ur Squamous Epith Cells Urine Bacteria Micro UA Comment SARS-CoV-2 (PCR) Influenza A (RT-PCR) Influenza B (RT-PCR) RSV (PCR) 05/14/22 05/14/22 10:55 17:15 WBC RBC Hgb Hct MCV MCH MCHC RDW Plt Count Neut % (Auto) Lymph % (Auto) Harris % (Auto) Eos % (Auto) Baso % (Auto) Neut # (Auto) Lymph # (Auto) Harris # (Auto) Eos # (Auto) Baso # (Auto) PT INR APTT Sodium Potassium Chloride Carbon Dioxide BUN Creatinine Estimated GFR BUN/Creatinine Ratio Glucose Hemoglobin A1c Lactate 3.2 H 1.6 Calcium Magnesium Total Bilirubin AST ALT Alkaline Phosphatase C-Reactive Protein NT-Pro-B Natriuret Pep Total Protein Albumin Globulin Albumin/Globulin Ratio Lipase Vitamin B12 Folate Procalcitonin Urine RBC Urine WBC Ur Squamous Epith Cells Urine Bacteria Micro UA Comment SARS-CoV-2 (PCR) Influenza A (RT-PCR) Influenza B (RT-PCR) RSV (PCR) [facility] Surgical History History of breast biopsy Family History (Updated 05/13/22 @ 22:14 by PIA Yeager) Mother Hypertension Father Heart attack Social History household members: family Smoking Status: Never smoker alcohol intake: never Assessment & Plan Assessment & Plan narrative: 1. Sepsis secondary to pneumonia Patient admitted meeting criteria for sepsis as evidenced by fever, lactic acidosis, tachycardia, tachypnea, and evidence of left perihilar pneumonia. Lactic acidosis was improving but is now up again this morning to 3.2. Blood and urine cultures were drawn and are pending at this time. Plan to continue ceftriaxone and azithromycin and repeat lactate level this afternoon. Overall, it appears her sepsis physiology has resolved. Her leukocytosis has improved from 15.8-14.8. 2. Left perihilar pneumonia, community-acquired As noted, patient is receiving Rocephin and azithromycin for community acquired pneumonia. Blood cultures pending. She is not requiring any oxygen therapy. She is uncertain if she has previously received the pneumonia vaccine. Given her age would definitely benefit from vaccination. 3. Diabetes mellitus type 2 Patient reports a history of known prediabetes. Her hemoglobin A1c is now 7.3%. Discussed that with improved dietary control and exercise, it is possible she will not require any additional treatment. She will need to establish with a primary care provider for further management. I have placed her on fingersticks and sliding scale and will monitor closely. 4. Mild malnutrition Patient does not report any history of inadequate food intake. Her BMI is within normal limits. I suspect she does not meet criteria for mild malnutrition. 5. Macrocytic anemia MCV is significantly elevated between 104 and 106. Hemoglobin was 10.1 on admission, 8.9 today. Suspect a component of hemodilution. Will send B12 and folate levels. This could also represent early blood dyscrasia. She again will need close outpatient follow-up and to establish with a PCP. 6. Hyponatremia Improving 7. Hyperbilirubinemia Bilirubin was 1.6 on admission. It has normalized at 0.8 today. No further follow-up. 8. BUTCH Resolved. Creatinine was 1.2 on admission. With hydration it is improved and down to 0.91. Code status Full Prophylaxis On Lovenox Disposition Likely home tomorrow Time Spent With Patient Critical Care time: I spent a total of [] minutes of critical care time on this patient's care today; this time is exclusive of procedural time. Quality VTE Deep Vein Thrombosis/Pulmonary Embolism Present on Admission: No
[2022-05-14] MEDS: cefTRIAXone 1,000 MG in SODIUM CHLORIDE 0.9% 100 ML 200 MG IV (20:48)
[2022-05-15 00:26] VITALS: BP 119/63; PULSE 97; RESP 18; TEMP 36.6; O2SAT 99
[2022-05-15 06:00] VITALS: BP 110/62; PULSE 77; RESP 20; TEMP 36.6; O2SAT 98
[2022-05-15 06:21] LABS: Add Manual Diff / Slide Review NO; Basophils Absolute Auto 100 /uL (0-100); Basophils Percent Auto 0.7 % (0-2); Eosinophils Absolute Auto 0 /uL (0-450); Hematocrit 26.4 % (36-46); Hemoglobin 8.9 g/dL (12.0-16.0); Lymphocytes Absolute Auto 2200 /uL (1100-4500); Lymphocytes Percent Auto 21.8 % (25-40); Mean Corpuscular HGB Conc 33.8 % (30-36); Mean Corpuscular Hemoglobin 35.1 PG (26-34); Mean Corpuscular Volume 103.9 fL (80-100); Monocytes Absolute Auto 600 /uL (0-900); Neutrophils Absolute Auto 7200 /uL (1500-7000); Neutrophils Percent Auto 71.5 % (50-75); Platelet Count 172 X10^3/uL (150-400); Red Blood Cell Count 2.54 X10^6/uL (4.0-5.2); Red Cell Distribution Width 14.2 % (11.6-14.8); White Blood Cell Count 10.1 X10^3/uL (4.5-11.0)
[2022-05-15 06:23] LABS: Alanine Aminotransferase 19 IU/L (<35); Albumin 3.3 g/dL (3.5-5.0); Albumin Globulin Ratio 0.7 (1.0-2.8); Alkaline Phosphatase 56 U/L (38-126); Aspartate Aminotransferase 31 IU/L (14-36); BUN Creatinine Ratio 27.1 (6-22); Bilirubin Total 0.6 mg/dL (0.2-1.3); Blood Urea Nitrogen 23 mg/dL (7-17); Carbon Dioxide 18 mmol/L (22-32); Chloride 107 mmol/L (98-107); Estimated Glomerular Filt Rate > 60 mL/min (>60); Globulin 4.7 g/dL (1.7-4.1); Glucose 125 mg/dL (80-110); HEMOLYSIS < 15 (0-50); Potassium 4.3 mmol/L (3.4-5.1); Sodium 132 mmol/L (137-145)
[2022-05-15] MEDS: predniSONE 20 MG TABLET 40 MG PO (08:43)
[2022-05-15 09:49] VITALS: BP 131/76; PULSE 89; RESP 16; TEMP 36.4; O2SAT 99
--- NOTE | 2022-05-15 10:45 | PT.IPTN ---
Current Diagnoses Sepsis, unspecified organism (05/13/22) Physical Therapy Treatment Note M2 PT-IP Current Condition Start: 05/14/22 08:13 Freq: NEEDED Status: Active Protocol: Document 05/14/22 08:58 DLM (Rec: 05/14/22 09:08 DLM [id number]) Physical Therapy Current Condition Current Condition Evaluation Date 05/14/22 Treatment Diagnosis Pneumonia, decreased balance Onset Date 05/13/22 M3 PT-IP Subjective Start: 05/14/22 08:13 Freq: NEEDED Status: Active Protocol: Document 05/15/22 10:35 DCW (Rec: 05/15/22 10:51 DCW [id number]) Subjective Physical Therapy Visit Type Type Treatment Note Visit Start Time 10:35 Visit Stop Time 10:45 Total Visit Minutes 10 Notes Pt up walking around room independently, feels a little tired, but largely has returned to baseline. No noticeable instability, completely independent within room. Number of [employer]LE[employer] SYSTEMS ARCHITECT Visits 0 Therapy Pain Assessment Pain Present Pain Present Denied Pain M4 PT-IP Mobility and Gait Start: 05/14/22 08:13 Freq: NEEDED Status: Active Protocol: Document 05/15/22 10:35 DCW (Rec: 05/15/22 10:51 DCW [id number]) Gait Assessment Gait Gait Assistance Required: Independent Distance (Feet) 150 Able to Maintain Weight Bearing Status Yes During Gait Comments Gait Comments No instability, pt abulating while talking to therapist and responding to text messages from family, no SOB. Stair Climbing Assessment Evaluation Level of Assist On Stairs Independent Devices Stair Climbing Assistive Devices None Technique/Endurance Stair Climbing Direction Ascend and Descend Stair Climbing Technique Step Over Step Number of Steps Climbed 3 Comments Stair Climbing Comments No SOB M5 PT-IP Objective Assessments Start: 05/14/22 08:13 Freq: NEEDED Status: Active Protocol: Document 05/14/22 08:58 DLM (Rec: 05/14/22 09:08 DLM [id number]) Orientation Orientation/Cognition Level of Alertness Alert Orientation Name,Age,Birthday,Month,Date, Year,Day of Week,Place, Situation Language Function Ability No Deficits Noted Memory Description No Deficits Noted Comments decreased awareness of need for safety in hospital environment, needs cuing for lines and how to decrease fall risks Gross Range of Motion Upper Extremity ROM Assessment Within Functional Limits Lower Extremity ROM Assessment Within Functional Limits Strength Upper Extremity Strength Assessment Within Functional Limits Lower Extremity Strength Assessment Within Functional Limits Coordination Assessment Gross Coordination Gross Coordination Impaired Assessment Finger to Nose Test Minimal Impairment Coordination Comments mild decrease in UE coordination she poured her sugar onto the tray missing her cup of coffee Sensation Assessment Sensation Gross Sensation Right LE Impaired,Left LE Impaired Sensation Description Numbness,Tingling Comments Sensation Comments she reports chronic numbness/ tinging in her feet, no changes today Muscle Tone Muscle Tone WNL Yes M6 PT-IP Treatment Start: 05/14/22 08:13 Freq: NEEDED Status: Active Protocol: Document 05/14/22 08:58 DLM (Rec: 05/14/22 09:08 DLM [id number]) Physical Therapy Treatment Other Treatments Other Treatment Performed pt up to recliner and set up for breakfast M7 PT-IP Assessment and Plan Start: 05/14/22 08:13 Freq: NEEDED Status: Active Protocol: Document 05/15/22 10:35 DCW (Rec: 05/15/22 10:51 DCW [id number]) PT Summary Assessment and Plan Summary Assessment Summary Pt up and independently mobile in room, notably more stable and no complaints of SOB. Pt agreeable to ambulate in yang and trial of stairs prior to discharge today. Able to ambulate total of 150' in yang independently with no AD, ascend/descend stairs no AD, no railing, without any loss of balance or SOB, O2 sat remained at 95% entire time on room air. Pt appropriate to return home from PT/safet perspective when medically cleared, no longer required further in-patient PT. Frequency of Treatment Frequency Of Treatment Discharge Discharge Recommendations PT Discharge Recommendations Home with Assistance Other Discharge Recommendations family support at discharge Transportation Needs at Discharge Private Vehicle
--- NOTE | 2022-05-15 11:38 | PC.NURSE ---
Addendum entered by Radha Madison R.N. 05/15/22 12:47: patient still eating lunch, awaiting arrival of her ride. confirmed she called scripts to [facility]. report to [place] [facility]. Original Note: 1000: discharge paperwork reviewed w/ patient. each section of the d/c packet was explained to Stella. 2 paper scripts given for cedifiner & azithromax. patient states she understands the d/c packet. would like to stay and have lunch as her ride will be here approx 1300.
--- NOTE | 2022-05-15 16:29 | P.DS_ITS ---
History of Present Illness History of Present Illness Chief complaint: fever t-3 possible pnemonia Narrative: Per history and physical: Sruthi Fong is a 71-year-old female with no known medical history who takes no medications presented to the ED with 3l days of fever, body aches, chills, VARGAS, productive yellow cough, pleuritic chest pain from coughing, nausea, tachypneic, tachycardic, with fever and worsening shortness of breath.? Patient's O2 saturations are in the 90s on room air but does become extensively short of breath with any sort of movement or getting up to the restroom. ?On admit patient denies changes in vision, difficulty swallowing, speech impairment, weakness, numbness, tingling, difficulty with ambulation, recent falls, head injury, LOC, recent exposure to illness, vomiting, urinary incontinence/retention, dysuria, frequency, urgency, hematuria, bowel changes, constipation, incontinence, melena, rashes, recent changes to medication, illness, injury, or trauma.? Patient denies any cardiac or respiratory history nonsmoker, has been vaccinated against flu and COVID unsure as to pneumonia vaccination status. Admit temp 103.2?, 140/65, 97, 24, O2 saturation 98% on room air.? WBC 15.8, notes 12,300, mono 1200, HGB 10 0.1/30.4, MCV 104.1, sodium 129, chloride 95, bicarb 20, creatinine 1.20, GFR 49, glucose 234-nothing in our records for comparison.? Bili 1.6, calcium 8.2, lactate 3.7, procalcitonin 1.37, UA is pending, negative COVID.? Chest x-ray confluent left perihilar opacities likely left lobe pneumonia.? Patient admitted for sepsis without shock metabolic/infectious/renal with low-sodium and BUTCH hyperglycemia. Discharge Providers Provider Date of admission: 05/13/22 21:11 Discharge Date: 05/15/22 Primary care physician: Doctor Marjan MD Consults: 05/13/22 21:32 Consult to Dietitian, Adult Routine Comment: Reason For Exam: BMI 21.3 Consult to Occupational Therapy Evaluate & Treat Comment: Physician Instructions: Evaluate and treat Consult to Physical Therapy Evaluate & Treat Comment: Physician Instructions: Evaluate and Treat Discharge provider: Jessica Stanton MD Summary Hospital Course Discharge Diagnosis: Sepsis secondary to pneumonia, resolved Left perihilar pneumonia, community-acquired, improving Diabetes mellitus type 2 with hemoglobin A1c of 7.3%, new diagnosis (previously known to be prediabetic) Mild malnutrition-ruled out Macrocytic anemia, normal B12 and folate levels, will need outpatient follow-up Hyponatremia mild at 132 at discharge Hyperbilirubinemia, resolved, likely secondary to sepsis BUTCH, resolved Hospital Course: Patient presented after several days of fevers and chills at home. She would a friend bring her to the hospital due to ongoing symptoms. She presented with fever of 103.2, lactic acidosis, evidence of BUTCH, as well as leukocytosis. Either day following admission she reported feeling significantly improved. She actually had requested discharge home at that time, but her lactate had normalized and subsequently come up to 3.2 that morning. After further discussion with the patient she agreed to remain in the hospital. Follow-up lactate that afternoon once again had normalized. Patient remained stable, afebrile, and did not require oxygen therapy. At the time of discharge, she denied significant ongoing respiratory symptoms. She was ambulating without difficulty. Normal room-air sats. During her hospital stay she was noted to have elevated blood sugars. Hemoglobin A1c resulted at 7.3% consistent with diabetes. She would previously known that she had a prediabetic state. We did discuss modifying her diet and increasing her activity when she has recovered from pneumonia. She expresses agreement. Furthermore, she was noted to have macrocytic anemia during her hospitalization. She would no known history of anemia. B12 and folate were within normal limits. Discussed the importance of following up for additional workup: Inclusive of a hematology consult. She agrees. Patient is discharged in stable condition. Status at Discharge Overall status at discharge: patient is progressing back to baseline Time Spent with Patient Time spent: Greater than 30 minutes Exam Vital Signs (past 8 hours): - 05/15/22 09:49 Temperature 97.6 F Pulse Rate 89 Respiratory Rate 16 Blood Pressure 131/76 Pulse Oximetry 99 Fraction of Inspired Oxygen 21 SaO2/FiO2 Ratio 461 Oxygen Delivery Method Room Air Oxygen Flow Rate 0 Narrative Exam Narrative: GEN:? Elderly female, Alert and oriented x 3, NAD HEENT:NC, Face symmetric CHEST: Respiratory excursions symmetric, mild bibasilar crackles, otherwise CTAB CV: RRR, no M/R/G ABD: Soft, NT/ND, BT present in all 4 quadrants, no organomegaly or masses EXTR: warm, well perfused, no C/C/E SKIN: warm and dry, no rash NEURO: Alert and oriented x 3, nonfocal Objective Labs 05/15/22 06:04 05/15/22 06:04 Labs: Laboratory Results - last 24 hr 05/14/22 05/15/22 05/15/22 17:15 06:04 06:04 WBC 10.1 RBC 2.54 L Hgb 8.9 L Hct 26.4 L MCV 103.9 H MCH 35.1 H MCHC 33.8 RDW 14.2 Plt Count 172 Neut % (Auto) 71.5 Lymph % (Auto) 21.8 L Kidder % (Auto) 6.0 Eos % (Auto) 0.0 L Baso % (Auto) 0.7 Neut # (Auto) 7200 H Lymph # (Auto) 2200 Kidder # (Auto) 600 Eos # (Auto) 0 Baso # (Auto) 100 Sodium 132 L Potassium 4.3 Chloride 107 Carbon Dioxide 18 L BUN 23 H Creatinine 0.85 Estimated GFR > 60 BUN/Creatinine Ratio 27.1 H Glucose 125 H Lactate 1.6 Calcium 8.0 L Total Bilirubin 0.6 AST 31 ALT 19 Alkaline Phosphatase 56 Total Protein 8.0 Albumin 3.3 L Globulin 4.7 H Albumin/Globulin Ratio 0.7 L PFSH Surgical History History of breast biopsy Family History (Updated 05/13/22 @ 22:14 by PIA Yeager) Mother Hypertension Father Heart attack Social History household members: family Smoking Status: Never smoker alcohol intake: never Discharge Plan Discharge Plan Patient Disposition: Home Provider Discharge Comment: Continue to monitor your symptoms. Return to the ED for recurrent fevers, shortness of breath, or inability to hold down food or fluids. You need to establish with a PCP for follow-up on your diabetes (Hemoglobin A1C 7.3%) and anemia (Hemoglobin 8.9, Hematocrit 26.4%). You should get a referral to hematology for further evaluation of your anemia. You should also check to see if you are up to date on your pneumonia vaccine. If not, please get the vaccine. Nursing Discharge Comment: call 911/return to ER if symptoms that brought you to the hospital return. signs and symptoms to monitor: fever greater than 101F, shortness of breath, p ainful breaths not relieved by pain medication. continue to use your incentive spirometer and flutter valve, you did really good on reaching your goals yesterday! continue to do the turn, cough and deep breathe (or hum) to keep the air in your lungs moving around. it was a pleasure to be your nurse this weekend, please take care of yourself & enjoy the rest of your day! Discharge orders & Medications Prescriptions: New cefdinir 300 mg capsule 300 mg PO BID Qty: 10 0RF azithromycin 500 mg tablet 500 mg PO DAILY 3 Days Qty: 3 0RF Follow up/Referrals: Miscellaneous,Doctor, [Primary Care Provider] - Diet/Activity/Treatments Diet: Diet as Tolerated and Carb-consistent/Diabetic Activity: As tolerated, increase your activity level to help improve your blood sugars Oxygen: N/A Visit Report/Discharge Packet Instructions: Pneumonia-Adult, Anemia, DI for Pneumonia -- Adult, DI for Sepsis -- Adult, Prednisone, Cefdinir Stand Alone Forms: Patient Portal/API, Stroke Signs & Symptoms Discharge Data Primary Care Provider: Doctor Marjan Quality VTE Deep Vein Thrombosis/Pulmonary Embolism Present on Admission: No
== END 2022-05-15 13:30 | disposition home or self-care (01) | DRG 871 ==
LOC: ED 21:07 → AC 21:13
PROVIDERS: Family Medicine; Admitting Provider Nurse Practitioner Family; Emergency Provider Emergency Medicine; Referring Provider Emergency Medicine; Visit Provider Nurse Practitioner Family
DX: A41.9 Sepsis, unspecified organism (principal); J18.9 Pneumonia, unspecified organism; N17.9 Acute kidney failure, unspecified; E11.65 Type 2 diabetes mellitus with hyperglycemia; D64.9 Anemia, unspecified; R65.20 Severe sepsis without septic shock; Z20.822 Contact with and (suspected) exposure to COVID-19
CPT/HCPCS: 36415; 71045; 80053; 81003; 81015; 82607; 82746; 82962; 83036; 83605; 83690; 83735; 83880; 84145; 85025; 85610; 85730; 86140; 87040; 87070; 87077; 87086; 87147; 87186; 87205; 87502; 87634; 87635; 93005; 93010; 94640; 96365; 97116; 97161; 99284; 99285; C9803; J0696; J1650; J1815

== ENCOUNTER 2022-09-24 12:45 | Emergency (ER) | payer MEDICARE, SELFPAY ==
[2022-05-14 12:08] VITALS: BMI 20.2
[2022-09-24 12:47] VITALS: BP 147/70; PULSE 89; RESP 18; TEMP 37.1; O2SAT 98; BMI 21.2
--- NOTE | 2022-09-24 12:56 | DI.CT.S_ITS ---
PROCEDURE: CT HEAD/BRAIN WO CON INDICATIONS: fall/hit head TECHNIQUE: Noncontrast 4.5 mm thick angled axial sections acquired from the foramen magnum to the vertex, with coronal and sagittal reformats. For radiation dose reduction, the following was used: automated exposure control, adjustment of mA and/or kV according to patient size. COMPARISON: None. FINDINGS: Image quality: Excellent. CSF spaces: Basal cisterns are patent. No extra-axial fluid collections. The ventricles are symmetric in size and shape. Brain: No intracranial bleeds or masses. There is cerebral volume loss for age, with resultant ventricular and sulcal prominence. There are periventricular and deep white matter chronic small vessel ischemic changes. There is intracranial internal carotid artery atherosclerosis. Skull and face: Soft tissue injury overlying the left periorbital region. Calvarium and visualized facial bones appear intact, without suspicious lesions. Sinuses: Visualized sinuses and mastoids are clear. IMPRESSION: Periorbital soft tissue contusion without underlying calvarial fractures. No acute intracranial abnormalities. Dictated by: Jerardo Caba M.D. on 09/24/2022 at 12:30 Approved by: Jerardo Caba M.D. on 09/24/2022 at 12:31
[2022-09-24 13:45] VITALS: BP 121/59; PULSE 85; RESP 18; O2SAT 96
--- NOTE | 2022-09-24 14:32 | ED_ITS ---
HPI - Head Injury General Chief complaint: Head Injury Stated complaint: Head inj Time Seen by Provider: 09/24/22 14:25 Source: patient Mode of arrival: Ambulatory History of Present Illness HPI Narrative: Patient maria elena 71-year-old female who presents today after a fall while going down the very steps. She did hit her head on the left side she has a very small laceration. Not on antiplatelet or anticoagulation medication. She did not lose consciousness. No numbness tingling nausea or vomiting. No other complaints today. Related Data Previous Rx's Medication Instructions Recorded cefdinir 300 mg capsule 300 mg PO BID #10 caps 05/15/22 Allergies Allergy/AdvReac Type Severity Reaction Status Date / Time magnesium sulfate Allergy Unknown Verified 09/24/22 12:47 Review of Systems Review of Systems ROS Unobtainable: All systems reviewed & are unremarkable except as noted in HPI and below Patient History Surgical History History of breast biopsy Family History Mother Hypertension Father Heart attack Social History household members: family Smoking Status: Never smoker alcohol intake: never Smoking Status: Never smoker Substance Use Type: does not use Exam Initial Vital Signs Initial Vital Signs: Vital Signs Temperature 98.7 F 09/24/22 12:47 Pulse Rate 89 09/24/22 12:47 Respiratory Rate 18 09/24/22 12:47 Blood Pressure 147/70 H 09/24/22 12:47 Pulse Oximetry 98 09/24/22 12:47 Oxygen Delivery Method Room Air 09/24/22 12:47 GENERAL: Alert slightly anxious 71-year-old female HEENT: Head atraumatic no crepitations no depression,EOMI, pupils reactive, face symmetric, [moist] mucous membranes CARDIOVASCULAR: Regular rate and rhythm without murmurs, rubs or gallops. RESPIRATORY: Breath sounds equal bilaterally, no wheezes rales or rhonchi. EXTREMITIES: Normal range of motion, no clubbing or edema. Neurovascularly intact NEUROLOGICAL: Alert and oriented x4.Normal gait and speech. Cranial nerves II through XII grossly intact. Globe Tester strength equal bilaterally SKIN: 0.5cm superficial laceration over left temporal area. No active bleeding at this time very good skin approximation Procedures Laceration Repair Laceration 1: Site: scalp Size (cm): 0.5 Description: linear Depth: simple, single layer Skin layer closed with: dermabond Course Orders Ordered: ED Orders 09/24/22 12:56 CT head/brain wo con Stat Vital Signs Vital signs: Vital Signs - 8 hr 09/24/22 12:47 09/24/22 13:45 09/24/22 14:45 Temperature 98.7 F Pulse Rate 89 85 82 Respiratory Rate 18 18 16 Blood Pressure 147/70 H 121/59 L 128/59 L Pulse Oximetry 98 96 97 Oxygen Delivery Method Room Air Room Air Room Air MDM - Head Injury Imaging Data CT scan - head: Radiologist's Impression: PROCEDURE:? CT HEAD/BRAIN WO CON ? INDICATIONS:? fall/hit head ? TECHNIQUE:? Noncontrast 4.5 mm thick angled axial sections acquired from the foramen magnum to the vertex, with coronal and sagittal reformats.? For radiation dose reduction, the following was used:? automated exposure control, adjustment of mA and/or kV according to patient size.? ? COMPARISON:? None. ? FINDINGS:? Image quality:? Excellent.? ? CSF spaces:? Basal cisterns are patent.? No extra-axial fluid collections.? The ventricles are symmetric in size and shape.? ? Brain:? No intracranial bleeds or masses.? There is cerebral volume loss for age, with resultant ventricular and sulcal prominence.? There are periventricular and deep white matter chronic small vessel ischemic changes.? There is intracranial internal carotid artery atherosclerosis.? ? Skull and face:? Soft tissue injury overlying the left periorbital region.? Ca lvarium and visualized facial bones appear intact, without suspicious lesions.? ? Sinuses:? Visualized sinuses and mastoids are clear.? ? IMPRESSION:? Periorbital soft tissue contusion without underlying calvarial fractures.? No acute intracranial abnormalities. ? ? Dictated by: Jerardo Caba M.D. on 09/24/2022 at 12:30 ? ? Approved by: Jerardo Caba M.D. on 09/24/2022 at 12:31 [facility] Narrative Medical decision making narrative: Patient is a 71-year-old female presents today after mechanical fall down the stairs. She did hit her head no loss of consciousness very small laceration which was easily repaired with Dermabond. Head CT is negative. Does report periorbital soft tissue contusion but there is actually no evidence contusion on exam. Small laceration left forehead. No concern for orbital fracture no need for CT facial bones. She is not having any neck pain no other injuries. She is ambulatory. Not on an antiplatelet or anticoagulation. Discharge Plan Departure Patient Disposition: Home Clinical Impression: Closed head injury Instructions: DI for Closed Head Injury Activity Restrictions/Additional Instructions: *You have been diagnosed with closed head injury, laceration *What to do: Your laceration has been glued. If you apply antibiotic ointment over it will dissolve the glue. I expect that the glue will come off in about 5-7 days. You may shower and bathe and wash her face as normal. *Continue to take medications as directed Tylenol 650 mg every 4-6 hours if needed for [id number] pain *Follow up with your primary care provider in 2-3 days or call [phone] *Return to ER if you should have increasing pain numbness redness swelling vomiting or any new, worsening or concerning symptoms Prescriptions: No Action cefdinir 300 mg capsule 300 mg PO BID Qty: 10 0RF Stand Alone Forms: Patient Portal/API
[2022-09-24 14:45] VITALS: BP 128/59; PULSE 82; RESP 16; O2SAT 97
== END 2022-09-24 14:46 | disposition home or self-care (01) ==
PROVIDERS: Emergency Provider Emergency Medicine
DX: S01.01XA Laceration without foreign body of scalp, initial encounter (principal); W10.9XXA Fall (on) (from) unspecified stairs and steps, initial encounter
CPT/HCPCS: 12001; 70450; 99281; 99284

== ENCOUNTER 2023-01-24 17:22 | Inpatient (IN) | payer MEDICARE, SELFPAY ==
[2022-05-14 12:08] VITALS: BMI 20.2
[2023-01-24] VITALS (19 sets, daily range): BP systolic 109–189; BP diastolic 55–84; PULSE 87–98; RESP 16–40; TEMP 37.6–38.6; O2SAT 92–99; BMI 21.2
--- NOTE | 2023-01-24 17:43 | DI.RAD.S_ITS ---
PROCEDURE: XR CHEST 1V INDICATIONS: suspected sepsis TECHNIQUE: One view of the chest was acquired. COMPARISON: [facility], CR, XR CHEST 1V, 05/13/2022, 20:09. FINDINGS: Surgical changes and devices: None. Lungs and pleura: Right basilar consolidation. Mediastinum: Mediastinal contours appear normal. Heart size is normal. Bones and chest wall: No suspicious bony lesions. Overlying soft tissues appear unremarkable. IMPRESSION: Right basilar consolidation, concerning for pneumonia. Differential includes mass. Recommend repeat radiograph in 2-3 months to ensure resolution. Dictated by: Vitaliy Wood M.D. on 01/24/2023 at 19:06 Approved by: Vitaliy Wood M.D. on 01/24/2023 at 19:06
[2023-01-24 18:20] LABS: INR 1.2 (0.9-1.3); Prothrombin Time 13.8 SECONDS (9.4-12.5)
[2023-01-24 18:23] LABS: PTT Partial Thromboplastin Tim 33 SECONDS (25.1-36.5)
[2023-01-24 18:24] LABS: Alanine Aminotransferase 24 IU/L (<35); Albumin 3.5 g/dL (3.5-5.0); Albumin Globulin Ratio 0.8 (1.0-2.8); Alkaline Phosphatase 55 U/L (38-126); Aspartate Aminotransferase 46 IU/L (14-36); BUN Creatinine Ratio 15.5 (6-22); Bilirubin Total 1.6 mg/dL (0.2-1.3); Blood Urea Nitrogen 18 mg/dL (7-17); Calcium 8.9 mg/dL (8.4-10.2); Carbon Dioxide 19 mmol/L (22-32); Chloride 101 mmol/L (98-107); Creatine Kinase 138 U/L (30-135); Estimated Glomerular Filt Rate 51 mL/min (>60); Globulin 4.6 g/dL (1.7-4.1); Glucose 201 mg/dL (80-110); HEMOLYSIS < 15 (0-50); Lipase 221 U/L (23-300); Potassium 3.8 mmol/L (3.4-5.1); Sodium 129 mmol/L (137-145); Total Protein 8.1 g/dL (6.3-8.2)
[2023-01-24 18:25] LABS: Lactate (Lactic Acid) 3.4 mmol/L (0.7-2.1)
[2023-01-24 18:28] LABS: Add Manual Diff / Slide Review NO; Basophils Absolute Auto 0 /uL (0-100); Basophils Percent Auto 0.2 % (0-2); Eosinophils Absolute Auto 0 /uL (0-450); Hematocrit 29.9 % (36-46); Hemoglobin 10.2 g/dL (12.0-16.0); Lymphocytes Absolute Auto 1900 /uL (1100-4500); Lymphocytes Percent Auto 10.7 % (25-40); Mean Corpuscular Hemoglobin 35.7 PG (26-34); Mean Corpuscular Volume 105.1 fL (80-100); Monocytes Absolute Auto 900 /uL (0-900); Monocytes Percent Auto 4.9 % (3-14); Neutrophils Absolute Auto 14600 /uL (1500-7000); Neutrophils Percent Auto 84.2 % (50-75); Platelet Count 155 X10^3/uL (150-400); Red Blood Cell Count 2.85 X10^6/uL (4.0-5.2); Red Cell Distribution Width 13.9 % (11.6-14.8); White Blood Cell Count 17.3 X10^3/uL (4.5-11.0)
[2023-01-24 18:36] LABS: NT-proBNP (BNP-Adult 18+) 2040 pg/mL (<125)
[2023-01-24] MEDS: SODIUM CHLORIDE 0.9% 1,000 ML 1000 ML IV ×2 (19:00→21:00)
--- NOTE | 2023-01-24 19:24 | ED_ITS ---
HPI - Nausea/Vomiting/Diarrhea General Chief complaint: Nausea/Vomiting/Diarrhea Stated complaint: NVD Time Seen by Provider: 01/24/23 19:17 Source: patient and family Mode of arrival: Ambulatory History of Present Illness HPI Narrative: 72-year-old woman with no specific medical history admitted for a bacterial pneumonia in May of 2022. She notes she is been feeling ill for approximately 24 hours. She is not had a cough she has been nauseated but has not actually vomited. She is been keeping some broth and fluids in but no food. She notes some mild epigastric and right upper quadrant pain. No diarrhea but she is having normal bowel movements. She describes no rashes to her skin, no chest pain, palpitations, shortness of breath. Low-grade headache over the course of the day today. Related Data Previous Rx's Medication Instructions Recorded cefdinir 300 mg capsule 300 mg PO BID #10 caps 05/15/22 Allergies Allergy/AdvReac Type Severity Reaction Status Date / Time magnesium sulfate Allergy Unknown Verified 09/24/22 12:47 Review of Systems Review of Systems Narrative: Pertinent positive and negative findings as per HPI Patient History Surgical History History of breast biopsy Family History Mother Hypertension Father Heart attack Social History household members: family Smoking Status: Never smoker alcohol intake: never Smoking Status: Never smoker Substance Use Type: does not use Exam Initial Vital Signs Initial Vital Signs: Vital Signs Temperature 101.4 F H 01/24/23 17:37 Pulse Rate 98 H 01/24/23 17:37 Respiratory Rate 16 01/24/23 17:37 Blood Pressure 189/84 H 01/24/23 17:37 Pulse Oximetry 98 01/24/23 17:37 Oxygen Delivery Method Room Air 01/24/23 17:37 General: Fairly thin, appears to not feel well but in no acute distress. Able to give a complete and coherent history. Well-nourished well-developed HEENT: Moist mucous membranes, normal sclera with reactive pupils, Neck: No JVD, supple Respiratory: Lungs are clear to auscultation, no wheezing no rales no rhonchi. Full and symmetrical air movement Cardiac: Regular rate and rhythm , 3/6 systolic murmur Abdomen: Soft, minor tenderness in the epigastrium and right upper quadrants but no rebound or guarding. no flank pain Skin: Warm and dry, no rashes or skin findings to suggest cellulitis Neurologic: Globally weak but otherwise Grossly neurologically intact with no obvious asymmetries or abnormalities Extremities: No trauma, well perfused, no lower extremity edema Psych: Cooperative, appropriate insight and affect Course Orders Ordered: ED Orders 01/24/23 17:43 XR chest 1V Stat EKG-12 Lead Stat RT Consult Eval and Treat NOW 01/24/23 17:58 BNP [NT-proBNP (BNP-Adult 18+)] Stat Complete Blood Count AUTO DIFF Stat Comprehensive Metabolic Panel Stat Lactate (Lactic Acid) Stat Lipase Stat PTT Partial Thromboplastin Edi Stat Procalcitonin Stat Prothrombin Time INR Stat Respiratory Panel (Film Array) Stat Troponin & CK Cardiac Panel Stat 01/24/23 19:36 CT chest abd pel w con Stat 01/24/23 19:49 Urinalysis and Microscopic Stat Urine Culture Stat 01/24/23 20:45 Blood Culture Stat Trop I [Troponin I] Stat Ondansetron HCl (Ondansetron 4 Mg/2 Ml Inj) 4 mg IV NOW PRN PRN Reason: Nausea And Vomiting Ondansetron HCl (Ondansetron 4 Mg Odt) 4 mg SL NOW PRN PRN Reason: Nausea And Vomiting Discontinued Medications Acetaminophen (Acetaminophen 325 Mg Tablet) 650 mg PO NOW ONE Stop: 01/24/23 21:46 Last Admin: 01/24/23 21:52 Dose: 650 mg Documented By: ELIEZER Sodium Chloride (Normal Saline 0.9%) 1,000 mls @ 1,000 mls/hr IV BOLUS ONE Stop: 01/24/23 18:42 Last Infusion: 01/24/23 21:24 Dose: Infused Documented By: Admin: 01/24/23 19:00 Dose: 1,000 mls/hr Documented By: ELIEZER Sodium Chloride (Normal Saline 0.9%) 1,000 mls @ 1,000 mls/hr IV BOLUS ONE Stop: 01/24/23 20:44 Last Admin: 01/24/23 21:00 Dose: 1,000 mls/hr Documented By: ELIEZER Piperacillin Sod/Tazobactam (Sod 4.5 gm/ Sodium Chloride) 100 mls @ 200 mls/hr IV NOW ONE Stop: 01/24/23 19:46 Last Infusion: 01/24/23 21:00 Dose: Infused Documented By: Admin: 01/24/23 19:57 Dose: 200 mls/hr Documented By: ELIEZER Ketorolac Tromethamine (Ketorolac 30 Mg/Ml Vial) 15 mg IV NOW ONE Stop: 01/24/23 21:47 Last Admin: 01/24/23 21:52 Dose: 15 mg Documented By: ELIEZER Vital Signs Vital signs: Vital Signs - 8 hr 01/24/23 17:37 01/24/23 19:15 01/24/23 19:18 Temperature 101.4 F H Pulse Rate 98 H 93 H Respiratory Rate 16 Blood Pressure 189/84 H 112/58 L Pulse Oximetry 98 92 Oxygen Delivery Method Room Air 01/24/23 19:18 01/24/23 19:30 01/24/23 19:30 Temperature Pulse Rate 91 H 91 H Respiratory Rate 19 21 Blood Pressure 109/55 L Pulse Oximetry 92 95 Oxygen Delivery Method 01/24/23 20:00 01/24/23 20:03 01/24/23 20:03 Temperature Pulse Rate 94 H 91 H Respiratory Rate 27 H 24 Blood Pressure 142/64 H Pulse Oximetry 93 97 Oxygen Delivery Method 01/24/23 20:15 01/24/23 20:30 01/24/23 20:30 Temperature Pulse Rate 90 94 H Respiratory Rate 16 40 H Blood Pressure 133/63 Pulse Oximetry 98 97 Oxygen Delivery Method 01/24/23 21:52 01/24/23 21:52 Temperature 99.7 F H 99.7 F H Pulse Rate Respiratory Rate Blood Pressure Pulse Oximetry Oxygen Delivery Method MDM - Nausea/Vomiting/Diarrhea Lab Data 01/24/23 17:58 01/24/23 17:58 Labs: Lab Results 01/24/23 01/24/23 01/24/23 Range/Units 17:58 19:49 20:45 WBC 17.3 H (4.5-11.0) X10^3/uL RBC 2.85 L (4.0-5.2) X10^6/uL Hgb 10.2 L (12.0-16.0) g/dL Hct 29.9 L (36-46) % MCV 105.1 H (80-100) fL MCH 35.7 H (26-34) PG MCHC 34.0 (30-36) % RDW 13.9 (11.6-14.8) % Plt Count 155 (150-400) X10^3/uL Neut % (Auto) 84.2 H (50-75) % Lymph % (Auto) 10.7 L (25-40) % [place] % (Auto) 4.9 (3-14) % Eos % (Auto) 0.0 L (2-4) % Baso % (Auto) 0.2 (0-2) % Neut # (Auto) 05235 H (8146-2458) /uL Lymph # (Auto) 1900 (1897-2760) /uL [place] # (Auto) 900 (0-900) /uL Eos # (Auto) 0 (0-450) /uL Baso # (Auto) 0 (0-100) /uL PT 13.8 H (9.4-12.5) SECONDS INR 1.2 (0.9-1.3) APTT 33 (25.1-36.5) SECONDS Sodium 129 L (137-145) mmol/L Potassium 3.8 (3.4-5.1) mmol/L Chloride 101 (98-107) mmol/L Carbon Dioxide 19 L (22-32) mmol/L BUN 18 H (7-17) mg/dL Creatinine 1.16 H (0.52-1.04) mg/dL Estimated GFR 51 L (>60) mL/min BUN/Creatinine Ratio 15.5 (6-22) Glucose 201 H (80-110) mg/dL Lactate 3.4 H 2.3 H (0.7-2.1) mmol/L Calcium 8.9 (8.4-10.2) mg/dL Total Bilirubin 1.6 H (0.2-1.3) mg/dL AST 46 H (14-36) IU/L ALT 24 (<35) IU/L Alkaline Phosphatase 55 (38-126) U/L Total Creatine Kinase 138 H (30-135) U/L Troponin I 0.030 0.037 H (0.01-0.034) ng/mL NT-Pro-B Natriuret Pep 2040 H (<125) pg/mL Total Protein 8.1 (6.3-8.2) g/dL Albumin 3.5 (3.5-5.0) g/dL Globulin 4.6 H (1.7-4.1) g/dL Albumin/Globulin Ratio 0.8 L (1.0-2.8) Lipase 221 (23-300) U/L Procalcitonin 4.80 H (<0.5) ng/mL Urine Color Yellow Urine Appearance Clear Urine pH 6.0 (4.5-8.0) Ur Specific [place] 1.015 (1.000-1.035) Urine Protein 3+ H (Negative) Urine Glucose (UA) 3+ H (Negative) g/dL Urine Ketones Negative (NEGATIVE) Urine Occult Blood 2+ H (Negative) Urine Nitrate Negative (Negative) Urine Bilirubin Negative (NEGATIVE) Urine Urobilinogen 0.2 (0.2) E.U./dL Ur Leukocyte Esterase Negative (NEGATIVE) Urine RBC 10-30/hpf H (0-5/HPF) Urine WBC 0-1/hpf (0-5/HPF) Ur Squamous Epith Cells 0-1 /hpf (0-5/HPF) Urine Bacteria Occasional (0-1) (None) Hyaline Casts 0-1/lpf (None) Chlamy pneumoniae PCR Not detected (Not Detect) Adenovirus (PCR) Not detected (Not Detect) B.parapertussis DNA PCR Not detected (Not Detecte) Coronavirus OC43 (PCR) Not detected (Not Detect) Coronavirus HKU1 (PCR) Not detected (Not Detect) Coronavirus 229E (PCR) Not detected (Not Detect) SARS-CoV-2 (PCR) Not detected (Not Detecte) Coronavirus NL63 (PCR) Not detected (Not Detect) Human Metapneumovir PCR Not detected (Not Detect) Influenza Type A (PCR) Not detected (Not Detect) Influenza Type B (PCR) Not detected (Not Detect) M. pneumoniae (PCR) Not detected (Not Detect) Parainfluenza 1 (PCR) Not detected (Not Detect) Parainfluenza 2 (PCR) Not detected (Not Detect) Parainfluenza 3 (PCR) Not detected (Not Detect) Parainfluenza 4 (PCR) Not detected (Not Detect) RSV (PCR) Not detected (Not Detect) Entero/Rhino (PCR) Not detected (Not Detect) Urine Dip Bedside Urine Glucose 1000 mg/dl Bedside Urine Bilirubin - Negative Bedside Urine Ketone - Negative Urine Specific [place] 1.015 Bedside Urine Occult Blood +++ Bedside Urine pH 6.0 Bedside Urine Protein +++ 300 Bedside Urine Urobilinogen - Negative Bedside Urine Nitrite - Negative Bedside Urine Leukocytes - Negative Esterase MDM Narrative Medical decision making narrative: CC: ?I think I am septic?. Fever, weakness mild abdominal pain no other localizing symptoms Complicating co-morbidities: Remarkably healthy only significant medical history is hospitalization for sepsis and pneumonia in May of this year Data collected from: patient, Medical records reviewed: Hospital records from May this year Differential considered: Pneumonia, urinary tract infection, intra-abdominal infection including but not limited to acute cholecystitis, sepsis Exam documented above, pertinent findings include: Blood pressure is slightly low, she is slightly tachycardic she does have a 3/6 systolic ejection murmur. Minor upper abdominal tenderness but no other localizing symptoms to suggest a source of infection Lab Test results independently reviewed as above. Pertinent findings: CBC shows significant leukocytosis at 17.3 with neutrophils at 84.2%. Chronic stable anemia at 10.2 and 29.9 Chemistries show a slight bump in creatinine from 0.85-1.16. Lactic is 3.4 total bilirubin is elevated at 1.6 AST is slightly elevated at 46 ALT and alk- phos are unremarkable. Troponin is nondetectable BNP is slightly elevated at 2040, she does not have a history of congestive heart failure Procalcitonin is significantly elevated at 4.8 Imaging studies independently reviewed: Chest x-ray suggests right basilar consolidation differential does include a mass pneumonia is certainly possible. CT scan of the chest abdomen and pelvis suggest patchy right lower lobe consolidation and atelectasis in the right middle lobe and lingula no mention of mass in the dictated report. Consultations: Dr Mendez, tele hospitalist. Accepts admission Treatments: Fluids, Zosyn, Zosyn antibiotics Re-evaluations: Findings reviewed with the patient. Given the concerns for developing sepsis and sepsis with pneumonia back in May and is currently meeting sepsis criteria, I would like to admit her for continued antibiotics and observation. She is having continued right upper quadrant right lower lung pain that presumably secondary to this pneumonia. Will have her try Toradol and see if this is effective. She understands the need for admission and will discuss with the hospitalist Discussion: Patient presents with fever elevated lactic acid concern for sepsis unknown source. Little unusual that an otherwise healthy 72-year-old needing no medications is hospitalized for sepsis with pneumonia in May and presents again with sepsis syndrome 6 months later. Definitely a concern for bacterial source given the elevated white count and procalcitonin. Will begin Zosyn after urine has been obtained, continue fluid resuscitation, proceed with CT scan of the chest abdomen and pelvis to more further evaluate the right basilar abnormality in the lungs and right upper quadrant abdominal pain. Repeat lactic acid is trending down to 2.3. She continues to complain of weakness and have a low-grade temperature. CT scan suggests right lower lobe pneumonia. Would like to admit this lady for developing pneumonia in the 72-year-old woman with initial elevated lactic acid trending down, bump in creatinine concerns for sepsis and concerns for blood pressure trending down over the course of her emergency department stay. She has had a total of 2 L of fluid, currently received Zosyn and Zofran. Her blood pressures responded nicely to the fluid resuscitation. BNP is slightly elevated however she does not have any clinical signs or symptoms of congestive heart failure. We will continue to follow but diuresis is not required nor appropriate at this time Severe Sepsis Criteria [ x ] bacterial source of infection suspected and documented [ ] 2 SIRS Criteria met [ x ] HR >90 [x ] RR >20 [ x] fever or hypothermia [ x] leukocytosis/leukopenia/bandemia [ ] Evidence of at least 1 organ system dysfunction [ x ] Lactate > 2 [ ] BP < 90 or MAP <65, >40mm decrease from normal baseline [ ] Creat > 2.0 [ ] T. Bili > 2.0 [ ] platelet count < 100k [ ] altered mental status [ ] mechanical ventilation [ ] provider documentation of severe sepsis Severe Sepsis Determination. the patient has been screened and [ x ] DOES meet criteria for severe sepsis [ ] DOES NOT meet criteria for severe sepsis Goal directed treatment Within 3 hours [ x ] blood cx drawn prior to abx [ x ] broad spectrum abx started [ x ] lactic acid level checked [ x] lactic redrawn within 6 hours if >2.0 Septic Shock Criteria [ ] lactic > 4 at any time [ ] SBP ,90 or MAP , 65 [ ] documentation of septic shock Time Septic Shock diagnosed: [ ] Septic Shock Determination. the patient has been screened and [ ] DOES meet criteria for septic shock [ x ] DOES NOT meet criteria for septic shock Discharge Plan Departure Patient Disposition: Admitted As Inpatient Clinical Impression: Elevated brain natriuretic peptide (BNP) level Pneumonia Qualifiers: Pneumonia type: due to unspecified organism Laterality: right Lung location: l ower lobe of lung Qualified Code(s): J18.9 - Pneumonia, unspecified organism Sepsis Qualifiers: Sepsis type: sepsis due to unspecified organism Sepsis acute organ dysfunction status: without acute organ dysfunction Qualified Code(s): A41.9 - Sepsis, unspecified organism
--- NOTE | 2023-01-24 19:36 | DI.CT.S_ITS ---
PROCEDURE: CT CHEST ABD PEL W CON INDICATIONS: sepsis, uncertain source TECHNIQUE: After the administration of intravenous contrast, axial sections acquired from the supraclavicular neck to the pubic symphysis. Coronal and sagittal reformats were performed. For radiation dose reduction, the following was used: automated exposure control, adjustment of mA and/or kV according to patient size. COMPARISON: None. FINDINGS: Image quality: Excellent. CHEST: Lower Neck: No enlarged lymph nodes. Thyroid: Within normal limits. Axillae: No enlarged lymph nodes. Chest Wall: Unremarkable. Lungs and Airways: Patchy right lower lobe consolidation. Mild atelectasis in the right middle lobe and lingula, with volume loss and bronchiectasis Pleura: No pneumothorax or pleural effusions. Heart: Heart size is normal. No pericardial effusion. Marked coronary calcifications for age. Thoracic Vessels: The aorta and pulmonary arteries demonstrate normal size. Mediastinum and Sandra: No enlarged lymph nodes. Esophagus: No wall thickening. No hiatal hernia. ABDOMEN: Liver: Cirrhosis. Patent portal vein. Gallbladder: No radiopaque gallstones or wall thickening. Focal adenomyosis at the fundus. Biliary ducts: No biliary dilation. Pancreas: No ductal dilation. Spleen: Size is within normal limits. Adrenal Glands: No adrenal nodules. Kidneys and Ureters: No hydronephrosis. No solid mass. No complex renal cystic lesion which requires follow up. Moderate burden of nonobstructing left-sided nephrolithiasis, largest stone measuring 8 mm in the inferior calyx (857 Hounsfield unit). Stomach and Bowel: Normal colonic caliber, without significant wall thickening. Peritoneum: No abnormal intraperitoneal fluid. No free air. Ventral Wall: No hernia. Abdominal Nodes: No retroperitoneal or mesenteric adenopathy by size criteria. Vessels: Aorta and inferior vena cava are normal in size. PELVIS: Pelvic Organs: Unremarkable. Bladder: Unremarkable. Pelvic Nodes: No enlarged lymph nodes. Miscellaneous: No inguinal hernias are seen. Bones: Unremarkable. IMPRESSION: 1. Right lower lobe bronchopneumonia. 2. Cirrhosis. Patent portal vein. 3. Marked coronary calcifications for age. Dictated by: Vitaliy Wood M.D. on 01/24/2023 at 20:02 Approved by: Vitaliy Wood M.D. on 01/24/2023 at 20:06
[2023-01-24 19:45] LABS: Reflexed Lactate in 2 Hours Y
[2023-01-24] MEDS: PIPERACILLIN/TAZO 4.5 GM in SODIUM CHLORIDE 0.9% 100 ML IV (19:57)
[2023-01-24 20:06] LABS: Adenovirus Not Detected (Not Detect); B. parapertussis Not Detected (Not Detecte); Bordetella pertussis Not Detected (Not Detect); Chlamydophila pneumoniae Not Detected (Not Detect); Coronavirus 229E Not Detected (Not Detect); Coronavirus HKU1 Not Detected (Not Detect); Coronavirus NL 63 Not Detected (Not Detect); Coronavirus OC43 Not Detected (Not Detect); Human Metapneumovirus Not Detected (Not Detect); Human Rhinovirus/Enterovirus Not Detected (Not Detect); Influenza A Not Detected (Not Detect); Influenza B Not Detected (Not Detect); Mycoplasma pneumoniae Not Detected (Not Detect); Parainfluenza Virus 1 Not Detected (Not Detect); Parainfluenza Virus 2 Not Detected (Not Detect); Parainfluenza Virus 3 Not Detected (Not Detect); Parainfluenza Virus 4 Not Detected (Not Detect); Respiratory Syncytial Virus Not Detected (Not Detect); SARS- CoV-2 Not Detected (Not Detecte)
[2023-01-24 21:11] LABS: Appearance Urine UA CLEAR; Bilirubin Urine UA NEGATIVE (NEGATIVE); Color Urine UA YELLOW; Glucose Urine UA 3+ g/dL (Negative); Ketones Urine UA NEGATIVE (NEGATIVE); Leukocyte Esterase Urine UA NEGATIVE (NEGATIVE); Nitrite Urine UA NEGATIVE (Negative); Occult Blood Urine UA 2+ (Negative); Protein Urine UA 3+ (Negative); Specific Gravity Urine UA 1.015 (1.000-1.035); Urobilinogen Urine UA 0.2 E.U./dL (0.2)
[2023-01-24 21:12] LABS: Lactate 2HR (Lactic Acid Rflx) 2.3 mmol/L (0.7-2.1)
[2023-01-24 21:20] LABS: Bacteria Urine Occasional (0-1); Hyaline Casts Urine 0-1/LPF; RBC Urine 10-30/HPF (0-5/HPF); Squamous Epithelial Cell Urine 0-1 /HPF (0-5/HPF); WBC Urine 0-1/HPF (0-5/HPF)
[2023-01-24 21:25] LABS: Troponin I 0.037 ng/mL (0.01-0.034)
[2023-01-24] MEDS: ACETAMINOPHEN 325 MG TABLET 650 MG PO (21:52)
[2023-01-24] MEDS: KETOROLAC 30 MG/ML VIAL 15 MG IV (21:52)
--- NOTE | 2023-01-24 23:55 | PM.HP.1 ---
History of Present Illness History of Present Illness Date Patient Seen: 01/24/23 Chief complaint: NVD Narrative: 72 y/o without PMH apart from PNA in 2017, then in May this year, presented to ED complaining on RUQ and chest wall pain, headache, generalized weakness, progressing in the last few days. ED workup revealed RLL infiltrate and sepsis. [facility] Surgical History History of breast biopsy Family History Mother Hypertension Father Heart attack Social History household members: none Smoking Status: Never smoker alcohol intake: current Meds Home Medications and Allergies Home Medications Medication Instructions Recorded Confirmed Type No Known Home Medications 01/24/23 01/24/23 History Allergies Allergy/AdvReac Type Severity Reaction Status Date / Time magnesium sulfate Allergy Unknown Verified 09/24/22 12:47 Review of Systems Constitutional Comments: w/o chills or fever generalized weakness Cardiovascular Comments: w/o palpitations or chest pain Respiratory Comments: w/o shortness of breath Gastrointestinal Comments: RUQ pain Genitourinary Comments: w/o dysuria Musculoskeletal Comments: Rt lower, lateral chest wall tenderness Exam Vital Signs (past 8 hours): - 01/24/23 17:37 01/24/23 19:15 01/24/23 19:18 Temperature 101.4 F H Pulse Rate 98 H 93 H Respiratory Rate 16 Blood Pressure 189/84 H 112/58 L Pulse Oximetry 98 92 Oxygen Delivery Method Room Air 01/24/23 19:18 01/24/23 19:30 01/24/23 19:30 Temperature Pulse Rate 91 H 91 H Respiratory Rate 19 21 Blood Pressure 109/55 L Pulse Oximetry 92 95 Oxygen Delivery Method 01/24/23 20:00 01/24/23 20:03 01/24/23 20:03 Temperature Pulse Rate 94 H 91 H Respiratory Rate 27 H 24 Blood Pressure 142/64 H Pulse Oximetry 93 97 Oxygen Delivery Method 01/24/23 20:15 01/24/23 20:30 01/24/23 20:30 Temperature Pulse Rate 90 94 H Respiratory Rate 16 40 H Blood Pressure 133/63 Pulse Oximetry 98 97 Oxygen Delivery Method 01/24/23 20:45 01/24/23 21:00 01/24/23 21:00 Temperature Pulse Rate 87 91 H Respiratory Rate 24 24 Blood Pressure 142/63 H Pulse Oximetry 94 Oxygen Delivery Method 01/24/23 21:15 01/24/23 21:30 01/24/23 21:30 Temperature Pulse Rate 91 H 93 H Respiratory Rate 21 24 Blood Pressure 132/64 Pulse Oximetry 98 95 Oxygen Delivery Method 01/24/23 21:45 01/24/23 21:52 01/24/23 21:52 Temperature 99.7 F H 99.7 F H Pulse Rate 95 H Respiratory Rate 24 Blood Pressure Pulse Oximetry 98 Oxygen Delivery Method 01/24/23 22:00 01/24/23 22:00 01/24/23 22:15 Temperature Pulse Rate 91 H 89 Respiratory Rate 20 20 Blood Pressure 142/65 H Pulse Oximetry 98 97 Oxygen Delivery Method 01/24/23 22:30 01/24/23 22:36 01/24/23 22:47 Temperature Pulse Rate 88 98 H Respiratory Rate 23 26 H Blood Pressure Pulse Oximetry 96 Oxygen Delivery Method Room Air 01/24/23 23:00 Temperature Pulse Rate 87 Respiratory Rate 24 Blood Pressure Pulse Oximetry 99 Oxygen Delivery Method Oxygen Delivery Method Room Air Const Other: Sitting in bed in no distress HENMT Other: normocephalic Neck Other: supple Resp Other: decreased breath sounds on the Rt Cardio Other: RRR GI Other: not distended, not tender Skin Other: w/o rashes Neuro Other: w/o deficits Psych Other: appropriate mood, lucid Objective Labs 01/24/23 17:58 01/24/23 17:58 Labs: Laboratory Results - last 24 hr 01/24/23 01/24/23 01/24/23 17:58 19:49 20:45 WBC 17.3 H RBC 2.85 L Hgb 10.2 L Hct 29.9 L MCV 105.1 H MCH 35.7 H MCHC 34.0 RDW 13.9 Plt Count 155 Neut % (Auto) 84.2 H Lymph % (Auto) 10.7 L [place] % (Auto) 4.9 Eos % (Auto) 0.0 L Baso % (Auto) 0.2 Neut # (Auto) 68704 H Lymph # (Auto) 1900 [place] # (Auto) 900 Eos # (Auto) 0 Baso # (Auto) 0 PT 13.8 H INR 1.2 APTT 33 Sodium 129 L Potassium 3.8 Chloride 101 Carbon Dioxide 19 L BUN 18 H Creatinine 1.16 H Estimated GFR 51 L BUN/Creatinine Ratio 15.5 Glucose 201 H Lactate 3.4 H 2.3 H Calcium 8.9 Total Bilirubin 1.6 H AST 46 H ALT 24 Alkaline Phosphatase 55 Total Creatine Kinase 138 H Troponin I 0.030 0.037 H NT-Pro-B Natriuret Pep 2040 H Total Protein 8.1 Albumin 3.5 Globulin 4.6 H Albumin/Globulin Ratio 0.8 L Lipase 221 Procalcitonin 4.80 H Urine Color Yellow Urine Appearance Clear Urine pH 6.0 Ur Specific [place] 1.015 Urine Protein 3+ H Urine Glucose (UA) 3+ H Urine Ketones Negative Urine Occult Blood 2+ H Urine Nitrate Negative Urine Bilirubin Negative Urine Urobilinogen 0.2 Ur Leukocyte Esterase Negative Urine RBC 10-30/hpf H Urine WBC 0-1/hpf Ur Squamous Epith Cells 0-1 /hpf Urine Bacteria Occasional (0-1) Hyaline Casts 0-1/lpf Chlamy pneumoniae PCR Not detected Adenovirus (PCR) Not detected B.parapertussis DNA PCR Not detected Coronavirus OC43 (PCR) Not detected Coronavirus HKU1 (PCR) Not detected Coronavirus 229E (PCR) Not detected SARS-CoV-2 (PCR) Not detected Coronavirus NL63 (PCR) Not detected Human Metapneumovir PCR Not detected Influenza Type A (PCR) Not detected Influenza Type B (PCR) Not detected M. pneumoniae (PCR) Not detected Parainfluenza 1 (PCR) Not detected Parainfluenza 2 (PCR) Not detected Parainfluenza 3 (PCR) Not detected Parainfluenza 4 (PCR) Not detected RSV (PCR) Not detected Entero/Rhino (PCR) Not detected Assessment & Plan Assessment and plan (1) Pneumonia: Qualifiers: Laterality: right Lung location: lower lobe of lung Pneumonia type: due to unspecified organism Qualified Code(s): J18.9 - Pneumonia, unspecified organism Status: Acute Plan: RLL. Apparently previous episode in May was also RLL. She initially denied any swallowing difficulties but then reported on episodic need to clear the throat after swallowing and on food getting stuck underneath upper dentures. SURVEILLANCE OFFICER to evaluate. Aspiration PNA? - Zosyn (2) Sepsis: Qualifiers: Sepsis acute organ dysfunction status: without acute organ dysfunction Sepsis type: sepsis due to unspecified organism Qualified Code(s): A41.9 - Sepsis, unspecified organism Status: Acute Plan: IVFs, Zosyn (3) Liver cirrhosis: Status: Acute Plan: Incidental finding on CT - minimally elevated AST and T.Sandeep (4) Left nephrolithiasis: Status: Acute Plan: Incidental finding Non-obstructive (5) Coronary artery calcification: Status: Acute Plan: Incidental finding on CT chest. This, coupled with elevated troponin and BNP puts her at risk for CAD. Echocardiogram - r/o wall motion abnormalities, assess systolic / diastolic function
[2023-01-25 04:15] VITALS: BP 127/65; PULSE 77; RESP 19; TEMP 36.1; O2SAT 98
--- NOTE | 2023-01-25 04:18 | PC.WOUNDPHOT ---
Scratches to back, non-blanchable redness to buttocks with tiny scab to upper left buttock.
[2023-01-25] MEDS: PIPERACILLIN/TAZO 4.5 GM in SODIUM CHLORIDE 0.9% 100 ML IV (06:37)
[2023-01-25] MEDS: ACETAMINOPHEN 325 MG TABLET 650 MG PO (06:51)
--- NOTE | 2023-01-25 07:16 | PC.ADMIT ---
[id number] [facility] Admission Note: Patient admitted to AC unit at 23:20 from ED transferred by wheelchair. A/O x 4, able to make needs known. Denies pain. Oriented to room and call light. Bed in low and locked position, call light within reach. The patient,Sruthi Nicolas,72 y/o, was given written information regarding hospital policies, unit procedures and contact persons. Patient's smoking status: Never smoker. Vital Signs - 8 hr 01/25/23 04:15 Temperature 96.9 F L Pulse Rate 77 Respiratory Rate 19 Blood Pressure 127/65 Pulse Oximetry 98
[2023-01-25 08:21] VITALS: BP 110/54; PULSE 80; RESP 19; TEMP 36.3; O2SAT 100
[2023-01-25 08:32] LABS: Blood Urea Nitrogen 20 mg/dL (7-17); Carbon Dioxide 21 mmol/L (22-32); Chloride 104 mmol/L (98-107); Estimated Glomerular Filt Rate 43 mL/min (>60); Glucose 209 mg/dL (80-110); HEMOLYSIS < 15 (0-50); Lactate (Lactic Acid) 1.4 mmol/L (0.7-2.1); Potassium 3.6 mmol/L (3.4-5.1); Sodium 132 mmol/L (137-145)
[2023-01-25 08:53] LABS: Add Manual Diff / Slide Review NO; Basophils Absolute Auto 0 /uL (0-100); Basophils Percent Auto 0.2 % (0-2); Eosinophils Absolute Auto 0 /uL (0-450); Eosinophils Percent Auto 0.1 % (2-4); Hematocrit 28.7 % (36-46); Hemoglobin 9.6 g/dL (12.0-16.0); Lymphocytes Absolute Auto 2000 /uL (1100-4500); Lymphocytes Percent Auto 12.6 % (25-40); Mean Corpuscular HGB Conc 33.5 % (30-36); Mean Corpuscular Volume 107.5 fL (80-100); Monocytes Absolute Auto 800 /uL (0-900); Monocytes Percent Auto 5.2 % (3-14); Neutrophils Absolute Auto 12900 /uL (1500-7000); Neutrophils Percent Auto 81.9 % (50-75); Platelet Count 129 X10^3/uL (150-400); Red Blood Cell Count 2.67 X10^6/uL (4.0-5.2); Red Cell Distribution Width 14.2 % (11.6-14.8); White Blood Cell Count 15.8 X10^3/uL (4.5-11.0)
--- NOTE | 2023-01-25 12:07 | ST.IPCSEOM ---
Visit Care Team Role Provider Type Doctor MD Marjan Primary Care Provider Non-Staff Specialty: Medical Address: Phone: Fax: Email: Huma Oh MD Emergency Provider Physician Referring Provider Specialty: Emergency Medicine Address: [address] [place] [address], [id number] Email: Yuriy Mendez MD Admit Provider Physician Attending Provider Specialty: Internal Medicine Address: [address] [place] [address], [id number] Fax: Email: Current Diagnoses Sepsis, unspecified organism (01/24/23) Atherosclerotic heart disease of [place] coronary artery without angina pectoris (01/24/23) Coronary atherosclerosis due to calcified coronary lesion (01/24/23) Pneumonia, unspecified organism (01/24/23) Unspecified cirrhosis of liver (01/24/23) Calculus of kidney (01/24/23) Speech-Language Pathology Swallow Evaluation OBSTETRICS TECH Clinical Swallow Evaluation Start: 01/25/23 09:06 Freq: Status: Active Protocol: Document 01/25/23 09:06 YOSSI (Rec: 01/25/23 09:14 YOSSI [id number]) Clinical Swallow Evaluation Session Time Visit Start Time 08:30 Visit Stop Time 09:00 Total Visit Minutes 30 Visit Information Visit Number 1 Referral Referring Provider Yuriy Mendez Reason for Referral Possible aspiration PNA Setting Assessment Location Acute Care Visit Type Note Type Initial evaluation Next Note Type Next Note Type Treatment Note Patient Information Identification Type Name,Wristband History Per H&P: 72 y/o without PMH apart from PNA in 2017, then in May this year, presented to ED complaining on RUQ and chest wall pain, headache, generalized weakness, progressing in the last few days. ED workup revealed RLL infiltrate and sepsis. CT of abdomen,chest,pel w/ contrast completed on 01/24/23 with the following impressions: IMPRESSION: 1. Right lower lobe bronchopneumonia. 2. Cirrhosis. Patent portal vein. 3. Marked coronary calcifications for age. Pt referred for ST evaluation d/t possible aspiration PNA. Subjective Observations Pt sitting upright in bed with breakfast meal. Pt awake, alert and agreeable to evaluation. Pt Ox3. Pt denies any hx of swallowing difficulties and consumes regular solids and thin liquids at home. Pt reports occasional food feeling stuck in throat/chest and choking on saliva. Reported by Patient/Caregiver Pain/Discomfort No Current Diet Regular (IDDSI 7) Baseline Feeding Method Independent in self-feeding The IDDSI Framework Protocol: IDDSI.1 Objective Assessment Mental Status Alert,Responsive,Cooperative Oral Integrity WFL Dentition Upper dentures/partials Lip Function Within normal limits Observation of Lips at Rest Symmetrical Pucker Within normal limits Lip Retraction Within normal limits Alternating Pucker/Lip Retraction Within normal limits Tongue Function Within normal limits Tongue Protrusion Within normal limits Food and Liquid Trials Position During Assessment Upright (90 degrees) Liquids Trialed Thin (IDDSI 0) Solid Trials Soft & Bite-sized (IDDSI 6), Regular (IDDSI 7) Administration Type Cup consecutive sips,Straw, Self-feeding Oral Impairment Mildly impaired Oral Phase Comments Pt consumed about 8-10oz of thin water via straw/cup, 1 bite of sausage link, shredded breakfast potatoes, and rocky cracker. For thin water via cup/straw Pt demonstrated consecutive sips/swallows, good oral acceptance and containment, adequate suction, timely ap transport. For soft solids Pt demonstrated adequate bite size, prolonged mastication however adequate bolus formation and control, extended ap transport with piecemeal deglutition, no oral stasis observed. For reg solid Pt demonstrated adequate bite size, prolonged mastication however adequate bolus formation and control, piecemeal deglutition, minimal oral stasis. Pharyngeal Impairment Mildly impaired Pharyngeal Phase Comments For all trials Pt demonstrated no overt s/s of aspiration/ penetration with clear vocal quality. However, Pt reports occasional feeling of food stuck in throat and choking on saliva, however not observed during evaluation. Pt with suspected delay in swallow. Fatigue/Endurance Endurance WNL The IDDSI Framework Protocol: IDDSI.1 Findings Swallowing Function Oropharyngeal phase dysphagia Severity of Swallow Impairment Mildly impaired Prognosis Good Comment Pt presents with mild oral phase dysphagia and suspected mild pharyngeal phase dysphagia. Recommendations Swallowing Treatment No Recommended Solids Regular (IDDSI 7) Recommended Liquids Thin (IDDSI 0) Other Recommendations ST recommends regular solids and thin liquids with the below mentioned safe swallowing strategies in place . ST educated Pt on s/s of aspiration and importance of adequate oral hygiene before/ after eating. Pt verbalized understanding. ST communicated results with Dr. Dawkins and nurse Norma. Outpatient MBSS may be considered to rule out silent aspiration. Safety Precautions/Swallowing Upright position at least 30 Recommendations minutes after meals,Small bites and sips when eating, Slow rate; swallow between bites,Alternate liquids and solids,Strict oral care after intake Medication Recommendations As Tolerated Education Patient/Caregiver Education Described results of evaluation,Patient expressed understanding of evaluation
--- NOTE | 2023-01-25 12:07 | ST.IPCSEOM ---
Visit Care Team Role Provider Type Doctor MD Marjan Primary Care Provider Non-Staff Specialty: Medical Address: Phone: Fax: Email: Huma Oh MD Emergency Provider Physician Referring Provider Specialty: Emergency Medicine Address: [address] [place] [address], [address] Email: Yuriy Mendez MD Admit Provider Physician Attending Provider Specialty: Internal Medicine Address: [address] [place] [address], [address] Fax: Email: [email or web address] Current Diagnoses Sepsis, unspecified organism (01/24/23) Atherosclerotic heart disease of [place] coronary artery without angina pectoris (01/24/23) Coronary atherosclerosis due to calcified coronary lesion (01/24/23) Pneumonia, unspecified organism (01/24/23) Unspecified cirrhosis of liver (01/24/23) Calculus of kidney (01/24/23) Speech-Language Pathology Swallow Evaluation [employer] LAW CLERK Clinical Swallow Evaluation Start: 01/25/23 09:06 Freq: Status: Active Protocol: Document 01/25/23 09:06 YOSSI (Rec: 01/25/23 09:14 YOSSI [id number]) Clinical Swallow Evaluation Session Time Visit Start Time 08:30 Visit Stop Time 09:00 Total Visit Minutes 30 Visit Information Visit Number 1 Referral Referring Provider Yuriy Mendez Reason for Referral Possible aspiration PNA Setting Assessment Location Acute Care Visit Type Note Type Initial evaluation Next Note Type Next Note Type Treatment Note Patient Information Identification Type Name,Wristband History Per H&P: 72 y/o without PMH apart from PNA in 2017, then in May this year, presented to ED complaining on RUQ and chest wall pain, headache, generalized weakness, progressing in the last few days. ED workup revealed RLL infiltrate and sepsis. CT of abdomen,chest,pel w/ contrast completed on 01/24/23 with the following impressions: IMPRESSION: 1. Right lower lobe bronchopneumonia. 2. Cirrhosis. Patent portal vein. 3. Marked coronary calcifications for age. Pt referred for ST evaluation d/t possible aspiration PNA. Subjective Observations Pt sitting upright in bed with breakfast meal. Pt awake, alert and agreeable to evaluation. Pt Ox3. Pt denies any hx of swallowing difficulties and consumes regular solids and thin liquids at home. Pt reports occasional food feeling stuck in throat/chest and choking on saliva. Reported by Patient/Caregiver Pain/Discomfort No Current Diet Regular (IDDSI 7) Baseline Feeding Method Independent in self-feeding The IDDSI Framework Protocol: IDDSI.1 Objective Assessment Mental Status Alert,Responsive,Cooperative Oral Integrity WFL Dentition Upper dentures/partials Lip Function Within normal limits Observation of Lips at Rest Symmetrical Pucker Within normal limits Lip Retraction Within normal limits Alternating Pucker/Lip Retraction Within normal limits Tongue Function Within normal limits Tongue Protrusion Within normal limits Food and Liquid Trials Position During Assessment Upright (90 degrees) Liquids Trialed Thin (IDDSI 0) Solid Trials Soft & Bite-sized (IDDSI 6), Regular (IDDSI 7) Administration Type Cup consecutive sips,Straw, Self-feeding Oral Impairment Mildly impaired Oral Phase Comments Pt consumed about 8-10oz of thin water via straw/cup, 1 bite of sausage link, shredded breakfast potatoes, and rocky cracker. For thin water via cup/straw Pt demonstrated consecutive sips/swallows, good oral acceptance and containment, adequate suction, timely ap transport. For soft solids Pt demonstrated adequate bite size, prolonged mastication however adequate bolus formation and control, extended ap transport with piecemeal deglutition, no oral stasis observed. For reg solid Pt demonstrated adequate bite size, prolonged mastication however adequate bolus formation and control, piecemeal deglutition, minimal oral stasis. Pharyngeal Impairment Mildly impaired Pharyngeal Phase Comments For all trials Pt demonstrated no overt s/s of aspiration/ penetration with clear vocal quality. However, Pt reports occasional feeling of food stuck in throat and choking on saliva, however not observed during evaluation. Pt with suspected delay in swallow. Fatigue/Endurance Endurance WNL The IDDSI Framework Protocol: IDDSI.1 Findings Swallowing Function Oropharyngeal phase dysphagia Severity of Swallow Impairment Mildly impaired Prognosis Good Comment Pt presents with mild oral phase dysphagia and suspected mild pharyngeal phase dysphagia. Recommendations Swallowing Treatment No Recommended Solids Regular (IDDSI 7) Recommended Liquids Thin (IDDSI 0) Other Recommendations ST recommends regular solids and thin liquids with the below mentioned safe swallowing strategies in place . ST educated Pt on s/s of aspiration and importance of adequate oral hygiene before/ after eating. Pt verbalized understanding. ST communicated results with Dr. Dawkins and nurse Norma. Outpatient MBSS may be considered to rule out silent aspiration. Safety Precautions/Swallowing Upright position at least 30 Recommendations minutes after meals,Small bites and sips when eating, Slow rate; swallow between bites,Alternate liquids and solids,Strict oral care after intake Medication Recommendations As Tolerated Education Patient/Caregiver Education Described results of evaluation,Patient expressed understanding of evaluation
--- NOTE | 2023-01-25 12:11 | ST.IPTN ---
Visit Care Team Role Provider Type Doctor MD Marjan Primary Care Provider Non-Staff Address: Phone: Fax: Huma Oh MD Emergency Provider Physician Referring Provider Address: [address] [place] [address], [address] Yuriy Mendez MD Admit Provider Physician Attending Provider Address: [address] [place] [address], [address] Fax: SLOT SHIFT MANAGER Treatment Note SLOT SHIFT MANAGER Treatment Note Start: 01/25/23 12:07 Freq: Status: Active Protocol: Document 01/25/23 12:07 YOSSI (Rec: 01/25/23 12:10 YOSSI [id number]) Speech Pathology Treatment Note Session Time Visit Start Time 09:00 Visit Stop Time 09:15 Total Visit Minutes 15 Visit Information Visit Number 1 Setting Treatment Setting Acute Care General Information Patient History Per H&P: 72 y/o without PMH apart from PNA in 2017, then in May this year, presented to ED complaining on RUQ and chest wall pain, headache, generalized weakness, progressing in the last few days. ED workup revealed RLL infiltrate and sepsis. CT of abdomen,chest,pel w/ contrast completed on 01/24/23 with the following impressions: IMPRESSION: 1. Right lower lobe bronchopneumonia. 2. Cirrhosis. Patent portal vein. 3. Marked coronary calcifications for age. Pt referred for ST evaluation d/t possible aspiration PNA. Subjective Identification Type Name,ID Wristband Observations/Patient Presentation Pt sitting upright in bed with breakfast meal. Pt Ox3 and compliant with eval/tx for swallow. Objective Treatment Activities Education related to SLOT SHIFT MANAGER role, assessment results, education . Assessment Patient Response to Treatment Excellent Impairments Identified Swallow Assessment of Improvement ST educated Pt on role and reason for evaluation as well as assessment results and recommendations. ST educated Pt on s/s of aspiration, how it occurs and prevention methods such as adequate and consistent oral hygiene before /after meals. ST also educated Pt on safe swallowing strategies to prevent potential aspiration such as sitting upright 90 degrees during meals/drinking, sitting upright at least 30 minutes after meals, eating/drinking slowly, taking 1 sip/bite at a time, alternating liquids/ solids. Pt verbalized understanding. Reviewed with Patient Goals Patient/Caregiver Understanding Excellent Plan Amount of Therapy Recommended No Further Therapy Frequency of Treatment No Further Therapy Length of Session 15 Minutes
[2023-01-25 12:32] VITALS: BP 118/66; PULSE 88; RESP 19; TEMP 36.8; O2SAT 100
[2023-01-25] MEDS: OXYCODONE IR 5 MG TABLET PO (12:58)
--- NOTE | 2023-01-25 13:44 | CM.DANOTE ---
Reviewed EMR and team rounds for pt's medical status and anticipated d/c needs. Met with pt at bedside to introduce self and role. Pt found to be alert, sitting bedside, expressing feeling much better than she had 2-days ago. Payor: Medicare No PCP Pt is a 72 year-old F who presented to the ED on 01/24/23 c/o fever, weakness, nausea, and chest wall pain, stating she felt like she had sepsis. She had a prior experience of having sepsis, and recognized the symptoms. Pt was evaluated and found to have severe sepsis and likely aspiration pneumonia. She lives alone, has a sister as her primary support, however her sister is also elderly and not able to assist her with cg needs. Pt shares that she does have a friend who will plan to transport her home. D/c needs pending PT/OT eval and recommendations. DCP will continue to follow and assist with resources/support needs prior to discharge. Discharge Planning/Care Management CM Discharge Assessment Start: 01/25/23 13:37 Freq: Status: Active Protocol: Document 01/25/23 13:38 DPL (Rec: 01/25/23 13:44 DPL [id number]) Discharge Planning Assessment Assigned Insurance Writer ROSENDO Ramon Advance Directives? No History Provided By Patient,Medical Record Expected Length of Stay 2 Has Patient been admitted in last 30 No days? Prior Living Arrangements House Household Members none Type of transporation used prior to Drives own vehicle admit Independent with ADL's Yes Is patient alert and oriented? Yes Caregiver for Another No Comment N/A Comment D/C recommendations pending PT /OT eval. Barriers to Discharge No Comment Patient has no primary care provider, can give her resources Discharge Plan Home Transportation Arrangement Family Referrals Initiated None needed Whiteboard Updated in Patient Room with Yes name and ext. # of Insurance Writer Review Status In Process Please Provide Date Initial DC 01/25/23 Assessment Was Performed
[2023-01-25] MEDS: cefTRIAXone 1,000 MG in SODIUM CHLORIDE 0.9% 100 ML 200 MG IV (14:18)
[2023-01-25] MEDS: AZITHROMYCIN 500 MG in DEXTROSE 5% IN WATER 250 ML 250 MG IV (15:03)
[2023-01-25 16:25] VITALS: BP 107/61; PULSE 83; RESP 19; TEMP 37.1; O2SAT 98
--- NOTE | 2023-01-25 16:27 | PC.NURSE ---
Addendum entered by Lulú Tolliver R.N. 01/25/23 17:52: Discharge instructions gone over with patient. Patient stated understanding and all questions answered. PIV d/c'ed prior to discharge. Pt awaiting friend who plans to pick her up around 1830 this evening. Will escort her via wheelchair to exit once friend arrives. Pt states her firend has picked up her prescription from [facility]. Original Note: Day shift: Pt began experiencing mild itching and then pain across L FA about 30 minutes after IV azithromycin started. No redness or swelling, though patient states she felt a lump above IV site. Removed PIV and change IV azithromycin to other PIV in R AC. Ran medication at slightly slower rate. After 10 min patient reported itching up her R arm. No redness or swelling. Stopped medication, notified MD Dawkins and Pharmacist Uziel. Added azithromyacin allergy to medical record and discontinued medication. Continued to monitor for any other signs of reaction, none exhibited.
--- NOTE | 2023-01-26 19:52 | PM.DS.1 ---
History of Present Illness History of Present Illness Date Patient Seen: 01/24/23 Chief complaint: NVD Narrative: Per admitting physician: 72 y/o without PMH apart from PNA in 2018, then in May this year, presented to ED complaining on RUQ and chest wall pain, headache, generalized weakness, progressing in the last few days. ED workup revealed RLL infiltrate and sepsis. Discharge Providers Provider Date of admission: 01/24/23 22:16 Discharge Date: 01/25/23 Primary care physician: Doctor Marjan MD Consults: 01/25/23 06:29 Consult to Speech Therapy Evaluate & Treat Comment: recurrent aspiration PNA, loose upper dentures, Physician Instructions: Evaluate and treat Discharge provider: Mehrdad Dawkins MD Summary Hospital Course Discharge Diagnosis: 1. Pneumonia 2. Kidney stone Hospital Course: Ms. Nicolas was admitted with a pneumonia. She improved with antibiotics. Given some concern for swallow dysfunction she was evaluated for aspiration and speech saw no evidence of aspiration. She was feeling improved and discharged with antibiotics for her pneumonia. Exam Vital Signs (past 8 hours): Oxygen Delivery Method Room Air Oxygen Flow Rate 0 Narrative Exam Narrative: GEN: no acute distress CV: regular rate and rhythm PULM: clear bilaterally Objective Labs 01/25/23 08:05 01/25/23 08:05 [facility] Surgical History History of breast biopsy Family History Mother Hypertension Father Heart attack Social History household members: none Smoking Status: Never smoker alcohol intake: current Discharge Plan Discharge Plan Patient Disposition: Home Provider Discharge Comment: Ms. Nicolas came in to the hospital with a pneumonia. She felt improved with antibiotics and should finish all her antibiotics to treat the infection. Discharge orders & Medications Prescriptions: New amoxicillin-pot clavulanate 875-125 mg tablet 1 tab PO BID Qty: 12 0RF Follow up/Referrals: Doctor Phillip MD [Primary Care Provider] - Diet/Activity/Treatments Diet: Regular Visit Report/Discharge Packet Instructions: DI for Pneumonia -- Adult, How to Prevent Falls Stand Alone Forms: Patient Portal/API, Stroke Signs & Symptoms Discharge Data Primary Care Provider: MarjanDoctor
== END 2023-01-25 19:05 | disposition home or self-care (01) | DRG 871 ==
LOC: ED 21:28 → AC 22:17
PROVIDERS: Emergency Medicine; Admitting Provider Internal Medicine; Emergency Provider Emergency Medicine; Referring Provider Emergency Medicine; Visit Provider Internal Medicine
DX: A41.9 Sepsis, unspecified organism (principal); J18.9 Pneumonia, unspecified organism; I25.10 Atherosclerotic heart disease of native coronary artery without angina pectoris
CPT/HCPCS: 36415; 71045; 71260; 74177; 80048; 80053; 81001; 81003; 82550; 83605; 83690; 83880; 84145; 84484; 85025; 85610; 85730; 87040; 87086; 87633; 92526; 92610; 96365; 96375; 99284; 99285; J0696; J1885; J2405; J2543; Q9967

== ENCOUNTER 2023-02-07 16:19 | Emergency (ER) | payer MEDICARE, SELFPAY ==
[2023-01-24 23:07] VITALS: BMI 21.2
[2023-02-07 16:32] VITALS: BP 134/60; PULSE 84; RESP 18; TEMP 37.7; O2SAT 98; BMI 21.2
--- NOTE | 2023-02-07 16:35 | DI.RAD.S_ITS ---
PROCEDURE: XR CHEST 2V INDICATIONS: cough, recent pna TECHNIQUE: 2 views of the chest were acquired. COMPARISON: [facility], CR, XR CHEST 1V, 05/13/2022, 20:09. [facility], CT, CT CHEST ABD PEL W CON, 01/24/2023, 19:41. [facility], CR, XR CHEST 1V, 01/24/2023, 18:33. FINDINGS: Surgical changes and devices: None. Lungs and pleura: Improved although incompletely resolved right basilar opacity. Mediastinum: Mediastinal contours are normal. Heart size is enlarged. Bones and chest wall: No suspicious bony abnormalities. Soft tissues appear unremarkable. IMPRESSION: Improved although incompletely resolved right basilar opacity. Recommend interval follow-up to document complete resolution. Dictated by: Marcelina Howard M.D. on 02/07/2023 at 17:36 Approved by: Marcelina Howard M.D. on 02/07/2023 at 17:37
--- NOTE | 2023-02-07 17:11 | ED.URI ---
HPI - URI/Sore Throat <Rosa oJse PA-C - Last Filed: 02/07/23 18:04> General Chief Complaint: Upper Respiratory Symptoms Stated Complaint: DIZZY/CHILLS/FEVER/HX SEPSIS Time Seen by Provider: 02/07/23 16:47 Source: patient Mode of arrival: Ambulatory History of Present Illness HPI Narrative: 72-year-old female with past medical history pneumonia, sepsis, nephrolithiasis, hyperlipidemia presents to the ED with 2 days of fever and chills. Patient states that she started feeling unwell last night with fever and chills and dry cough. Patient denies chest pain, shortness of breath, runny nose, cough, sore throat, nausea, vomiting, diarrhea, constipation, lightheadedness, dizziness, syncope. Patient states she took 1200 mg of Tylenol this morning, felt better, however feels feverish again in the ED currently. Patient has a history of frequent sepsis from pneumonia for which she has required hospitalization. Patient is concerned that she might be septic again today. Related Data Previous Rx's Medication Instructions Recorded amoxicillin 875 mg-potassium 1 tab PO BID #12 tabs 01/25/23 clavulanate 125 mg tablet Allergies Allergy/AdvReac Type Severity Reaction Status Date / Time azithromycin Allergy Mild ITCHING Verified 01/25/23 16:26 magnesium sulfate Allergy Unknown Verified 09/24/22 12:47 Review of Systems <Rosa Jose PA-C - Last Filed: 02/07/23 18:04> Constitutional Constitutional: Reports chills, Denies fatigue, Reports fever(s), Denies frequent falls, Denies lethargy and Denies weakness Eyes Eyes: Denies change in vision, Denies eye discharge, Denies irritation and Denies loss of vision ENT Ears, Nose, Mouth, and Throat: Denies change in voice, Denies dizziness, Denies neck pain, Denies sore throat and Denies throat swelling Cardiovascular Cardiovascular: Denies chest pain, Denies irregular heart rhythm, Denies lightheadedness, Denies palpitations, Denies dyspnea, Denies dyspnea on exertion and Denies orthopnea Respiratory Respiratory: Reports cough, Denies dyspnea, Denies dyspnea on exertion and Denies wheezing Gastrointestinal Gastrointestinal: Denies abdominal pain, Denies change in bowel habits, Denies diarrhea, Denies nausea and Denies vomiting Musculoskeletal Musculoskeletal: Denies neck pain and Denies numbness Integumentary/Breasts Skin/Breast: Denies pruritus, Denies erythema, Denies rash and Denies wounds Neurologic Neurologic: Denies behavioral changes, Denies confusion, Denies dizziness, Denies frequent falls, Denies loss of vision, Denies numbness and Denies weakness Psychiatric Psychiatric: Denies anxiety, Denies behavioral changes, Denies confusion, Denies depression, Denies homicidal ideation and Denies suicidal ideation Endocrine Endocrine: Denies fatigue, Denies flushing and Denies palpitations Hematologic/Lymphatic Hematologic/Lymphatic: Denies easy bruising Allergic/Immunologic Allergic/Immunologic: Denies urticaria, Denies throat swelling and Denies wheezing Patient History <Rosa Jose PA-C - Last Filed: 02/07/23 18:04> Surgical History History of breast biopsy Family History Mother Hypertension Father Heart attack Social History household members: none Smoking Status: Never smoker alcohol intake: current Smoking Status: Never smoker alcohol intake frequency: holidays/special occasions only Substance Use Type: does not use Exam <Rosa Jose PA-C - Last Filed: 02/07/23 18:04> Narrative Exam Narrative: Const General:?cooperative, healthy appearing and comfortable [facility] Head:?normal to inspection Ears:?hearing grossly normal bilaterally Nose:?external nose normal Face and sinus:?normal facial exam and sinuses nontender Mouth:?oral mucosae normal Throat:?posterior oropharynx normal Eyes General:?appearance normal, both eyes and all related structures Neck Neck:?normal visual inspection and no lymphadenopathy noted Resp Effort & Inspection:?normal respiratory effort Auscultation:?clear to auscultation bilaterally Cardio Rate:?regular rate Rhythm:?regular rhythm Neuro General:?patient alert, patient awake and patient oriented x3 Initial Vital Signs Initial Vital Signs: Vital Signs Temperature 99.9 F H 02/07/23 16:32 Pulse Rate 84 02/07/23 16:32 Respiratory Rate 18 02/07/23 16:32 Blood Pressure 134/60 02/07/23 16:32 Pulse Oximetry 98 02/07/23 16:32 Oxygen Delivery Method Room Air 02/07/23 16:32 <DO Tianna Julio Last Filed: 02/12/23 07:12> Initial Vital Signs Initial Vital Signs: Vital Signs Temperature 99.9 F H 02/07/23 16:32 Pulse Rate 84 02/07/23 16:32 Respiratory Rate 18 02/07/23 16:32 Blood Pressure 134/60 02/07/23 16:32 Pulse Oximetry 98 02/07/23 16:32 Oxygen Delivery Method Room Air 02/07/23 16:32 Course <Rosa Jose PA-C - Last Filed: 02/07/23 18:04> Orders Ordered: Discontinued Medications Acetaminophen (Acetaminophen 325 Mg Tablet) 975 mg PO NOW ONE Stop: 02/07/23 17:21 Last Admin: 02/07/23 17:32 Dose: 975 mg Documented By: GURINDER Vital Signs Vital signs: Vital Signs - 8 hr 02/07/23 16:32 Temperature 99.9 F H Pulse Rate 84 Respiratory Rate 18 Blood Pressure 134/60 Pulse Oximetry 98 Oxygen Delivery Method Room Air <DO Tianna Julio Last Filed: 02/12/23 07:12> Orders Ordered: Discontinued Medications Acetaminophen (Acetaminophen 325 Mg Tablet) 975 mg PO NOW ONE Stop: 02/07/23 17:21 Last Admin: 02/07/23 17:32 Dose: 975 mg Documented By: GURINDER Vital Signs Vital signs: Vital Signs - 8 hr 02/07/23 16:32 Temperature 99.9 F H Pulse Rate 84 Respiratory Rate 18 Blood Pressure 134/60 Pulse Oximetry 98 Oxygen Delivery Method Room Air MDM - URI/Sore Throat <Rosa Jose PA-C - Last Filed: 02/07/23 18:04> Lab Data Labs: Lab Results 02/07/23 Range/Units 16:35 SARS-CoV-2 (PCR) Positive H (Negative) Influenza A (RT-PCR) Flu a negative (NEGATIVE) Influenza B (RT-PCR) Flu b negative (NEGATIVE) RSV (PCR) Negative (Negative) MDM Narrative Medical decision making narrative: 72-year-old female with past medical history pneumonia, sepsis, nephrolithiasis, hyperlipidemia presents to the ED with 2 days of fever and chills. Concern for viral infection versus other. Will obtain respiratory swab and chest x-ray. Will give Tylenol for fever. Will reassess. Patient is positive for COVID-19. Chest x-ray shows a improved although incompletely resolved right basilar opacity. Given that patient had a recent pneumonia at the end of January, this is to be expected, recommend that patient follow-up with her PCP and get interval x-rays. SpO2 is normal at 98% on room air. Vitals are within normal limits except for a elevated temperature of 99.9? F. patient is breathing comfortably. Lung sounds are normal. Recommend good hydration. Recommend Tylenol, ibuprofen for symptoms. ED return precautions were discussed with patient. Patient verbalized understanding. Medical records reviewed: Yes <Wanda Monique DO - Last Filed: 02/12/23 07:12> Lab Data Labs: Lab Results 02/07/23 Range/Units 16:35 SARS-CoV-2 (PCR) Positive H (Negative) Influenza A (RT-PCR) Flu a negative (NEGATIVE) Influenza B (RT-PCR) Flu b negative (NEGATIVE) RSV (PCR) Negative (Negative) Discharge Plan Departure Patient Disposition: Home Clinical Impression: COVID-19 Instructions: COVID-19 Activity Restrictions/Additional Instructions: You were evaluated in the ED today for fever and chills and a cough. You tested positive for COVID-19. Your chest x-ray shows some improvement from the prior chest x-ray although the opacity is not completely resolved. They recommend that you follow-up with your PCP as soon as possible and get a repeat x-ray in a few days. Please continue to stay well hydrated. You may take Tylenol, ibuprofen for your symptoms. Return to the ED if you have worsening symptoms, chest pain, shortness of breath. Prescriptions: No Action amoxicillin-pot clavulanate 875-125 mg tablet 1 tab PO BID Qty: 12 0RF Referrals: Miscellaneous,Doctor, MD [Primary Care Provider] - Stand Alone Forms: Patient Portal/API ED Sign-out <Wanda Monique DO - Last Filed: 02/12/23 07:12> Cosign ED Attending Cosshyanneature Attestation: I was immediately available in the department for consultation.
[2023-02-07] MEDS: ACETAMINOPHEN 325 MG TABLET 975 MG PO (17:32)
[2023-02-07 17:36] LABS: Influenza A - CEPHEID Flu A NEGATIVE (NEGATIVE); Influenza B - CEPHEID Flu B NEGATIVE (NEGATIVE); Respiratory Syncytial Virus Negative (Negative)
[2023-02-07 17:45] LABS: COVID-19 CEPHEID 4-PLEX PCR POSITIVE (Negative)
[2023-02-07 18:09] VITALS: BP 109/53; PULSE 83; RESP 16; TEMP 38.3; O2SAT 100
== END 2023-02-07 18:10 | disposition home or self-care (01) ==
PROVIDERS: Emergency Medicine; Emergency Provider Student in an Organized Health Care Education/Training Program
DX: U07.1 COVID-19 (principal)
CPT/HCPCS: 0241U; 71046; 99283

== ENCOUNTER 2023-04-16 22:28 | Emergency (ER) | payer MEDICARE, SELFPAY ==
[2023-01-24 23:07] VITALS: BMI 21.2
[2023-04-16 22:32] VITALS: BP 134/65; PULSE 89; RESP 18; TEMP 37.1; O2SAT 99; BMI 21.0
--- NOTE | 2023-04-16 22:40 | DI.RAD.S_ITS ---
PROCEDURE: XR CHEST 1V INDICATIONS: cough TECHNIQUE: One view of the chest was acquired. COMPARISON: [facility], CR, XR CHEST 2V, 02/07/2023, 16:46. FINDINGS: Surgical changes and devices: None. Lungs and pleura: Resolving right basilar opacity. No new focal dense airspace consolidation. No pleural effusions or pneumothorax. Mediastinum: Mediastinal contours appear normal. Heart size is normal. Aortic arch is calcified indicating atherosclerosis. Bones and chest wall: No suspicious bony lesions. Overlying soft tissues appear unremarkable. IMPRESSION: Resolving right basilar opacity. No new acute focal airspace consolidation. Recommend interval follow-up to document complete resolution. Approved by: Roseann Cunningham M.D. on 04/16/2023 at 23:10
[2023-04-16 22:41] VITALS: BP 144/65
[2023-04-16 22:42] VITALS: PULSE 90; O2SAT 99
[2023-04-16 23:00] VITALS: BP 131/66; PULSE 84; O2SAT 98
[2023-04-16] MEDS: predniSONE 20 MG TABLET 60 MG PO (23:12)
[2023-04-16 23:30] VITALS: BP 136/71; PULSE 83; O2SAT 99
--- NOTE | 2023-04-16 23:50 | ED_ITS ---
HPI - General Adult General Chief complaint: Upper Respiratory Symptoms Stated complaint: chills, fever, Time Seen by Provider: 04/16/23 22:38 Source: patient Mode of arrival: Ambulatory History of Present Illness HPI narrative: 72-year-old woman with lifelong history of asthma she has an albuterol inhaler but does not use a spacer. She notes that had she has beclomethasone at home but never uses it. She has had mild upper respiratory symptoms over the last couple of days with a fever that does seem to be trending down. She does not describe a productive cough. She is noticing increasing tightness over the upper chest. She is also noticed the loss of her voice since symptoms started. She comes in for further evaluation she has not noticing overt chest pain, palpitations, nausea, vomiting, diarrhea, abdominal pain, lower extremity edema, orthopnea Related Data Previous Rx's Medication Instructions Recorded amoxicillin 875 mg-potassium 1 tab PO BID #12 tabs 01/25/23 clavulanate 125 mg tablet prednisone 20 mg tablet 20 mg PO DAILY #5 tabs 04/16/23 Allergies Allergy/AdvReac Type Severity Reaction Status Date / Time azithromycin Allergy Mild ITCHING Verified 04/16/23 22:32 magnesium sulfate Allergy Unknown I couldn't Verified 04/16/23 22:32 move Review of Systems Review of Systems Narrative: Pertinent positive and negative findings as per HPI Patient History Medical History (Updated 04/16/23 @ 23:58 by Huma Oh MD) Asthma Surgical History History of breast biopsy Family History Mother Hypertension Father Heart attack Social History household members: none Smoking Status: Never smoker alcohol intake: current Smoking Status: Never smoker alcohol intake frequency: holidays/special occasions only Substance Use Type: does not use Exam Initial Vital Signs Initial Vital Signs: Vital Signs Temperature 98.7 F 04/16/23 22:32 Pulse Rate 89 04/16/23 22:32 Respiratory Rate 18 04/16/23 22:32 Blood Pressure 134/65 04/16/23 22:32 Pulse Oximetry 99 04/16/23 22:32 Oxygen Delivery Method Room Air 04/16/23 22:32 General: Healthy appearing, in no acute distress. Able to give a complete and coherent history. Well-nourished well-developed HEENT: Moist mucous membranes, normal sclera with reactive pupils, voice is hoarse Neck: No JVD, no cervical adenopathy Respiratory: Lungs with moderate wheeze in upper lung collins but overall good air movement and no accessory muscle use Cardiac: Regular rate and rhythm no murmurs no bruits Abdomen: Soft, nontender, good bowel tones, no flank pain Skin: Warm and dry, no rashes Neurologic: Grossly neurologically intact with no obvious asymmetries or abnormalities Extremities: No trauma, well perfused Psych: Cooperative, appropriate insight and affect Course Orders Ordered: ED Orders 04/16/23 22:40 XR chest 1V Stat Discontinued Medications Albuterol (Albuterol 2.5 Mg/3 Ml Neb (Adult)) 2.5 mg INH NOW ONE Stop: 04/16/23 22:59 Last Admin: 04/16/23 23:58 Dose: 2.5 mg Documented By: LUMA Prednisone (Prednisone 20 Mg Tablet) 60 mg PO NOW ONE Stop: 04/16/23 22:59 Last Admin: 04/16/23 23:12 Dose: 60 mg Documented By: AB Vital Signs Vital signs: Vital Signs - 8 hr 04/16/23 22:32 04/16/23 22:41 04/16/23 22:42 Temperature 98.7 F Pulse Rate 89 90 Respiratory Rate 18 Blood Pressure 134/65 144/65 H Pulse Oximetry 99 99 Oxygen Delivery Method Room Air 04/16/23 23:00 04/16/23 23:00 04/16/23 23:30 Temperature Pulse Rate 84 Respiratory Rate Blood Pressure 131/66 136/71 Pulse Oximetry 98 Oxygen Delivery Method 04/16/23 23:30 04/16/23 23:58 04/17/23 00:00 Temperature Pulse Rate 83 Respiratory Rate 18 Blood Pressure 138/67 Pulse Oximetry 99 Oxygen Delivery Method 04/17/23 00:00 04/17/23 00:01 Temperature Pulse Rate 86 Respiratory Rate Blood Pressure Pulse Oximetry 99 98 Oxygen Delivery Method Room Air Medical Decision Making MDM Narrative Medical decision making narrative: CC: Wheezing Complicating co-morbidities: History of asthma, recent upper respiratory infection with symptoms since April 10. Fevers are trending down. Data collected from: patient Differential considered: Pneumonia, pneumothorax, atypical pneumonia, viral syndrome, asthma exacerbation secondary to infectious etiology Exam documented above, pertinent findings include: No acute distress, mild scattered wheeze, no rhonchi or consolidated findings Imaging studies independently reviewed: Chest x-ray looks like a mild viral pattern. Radiologist interpreted as a resolving right lower lobe pneumonia Treatments: Patient is instructed in use of a spacer, she is given 60 mg of oral prednisone, albuterol nebulized treatment Discussion: 72-year-old woman with a history of asthma with recent upper respiratory infection and now with continued cough. The cough is nonproductive. She notes that her fever has been trending down. She is not hypoxic. There was no signs of acute coronary abnormalities, congestive heart failure, pneumonia, sepsis. At this point there is no indication for additional imaging or workup. She does not require hospitalization. She is given instructions and the actual spacer to use with her albuterol MDI. We will give her 5 additional days of prednisone. There was no indication for antibiotics currently. If symptoms are not improving have encouraged her to follow up with her primary care doctor or return to the emergency department. Questions were answered she is safe for discharge Discharge Plan Departure Patient Disposition: Home Clinical Impression: Acute asthma exacerbation Qualifiers: Asthma severity: moderate Asthma persistence: persistent Qualified Code(s): J45.41 - Moderate persistent asthma with (acute) exacerbation Upper respiratory infection Qualifiers: URI type: unspecified viral URI Qualified Code(s): J06.9 - Acute upper respiratory infection, unspecified Instructions: DI for Asthma -- Adult, DI for Viral Upper Respiratory Infection -- Adult Activity Restrictions/Additional Instructions: Thank you for coming in today Your chest x-ray does not suggest a significant pneumonia and your clinical exam suggests a viral syndrome with asthma exacerbation. There is no indication for antibiotics at this time. Your oxygen levels remain in the high normal range. In the emergency department you are given a dose of prednisone and I am going to give you a prescription for 5 additional days of prednisone to help with asthma and airway inflammation after a viral upper respiratory infection. I am going to suggest that you use your spacer with your albuterol nebulizer, 2 puffs every 4 hours as needed for wheezing or chest tightness. Using the spacer allows you to get the smaller particles deeper anterior lungs which makes the medication more effective. The prednisone prescription was electronically transmitted to [facility] in [place] If you find that you are getting worse or develop any new symptoms, please feel free to return to the emergency department for further evaluation. Prescriptions: New prednisone 20 mg tablet 20 mg PO DAILY Qty: 5 0RF No Action amoxicillin-pot clavulanate 875-125 mg tablet 1 tab PO BID Qty: 12 0RF Referrals: Miscellaneous,Doctor, MD [Primary Care Provider] - Stand Alone Forms: Patient Portal/API
[2023-04-16 23:58] VITALS: RESP 18
[2023-04-16] MEDS: ALBUTEROL 2.5 MG/3 ML NEB (ADULT) INH (23:58)
[2023-04-17] VITALS: BP 138/67; PULSE 86; O2SAT 99
[2023-04-17 00:01] VITALS: O2SAT 98
== END 2023-04-17 00:20 | disposition home or self-care (01) ==
PROVIDERS: Emergency Provider Emergency Medicine
DX: J45.41 Moderate persistent asthma with (acute) exacerbation (principal); J06.9 Acute upper respiratory infection, unspecified
CPT/HCPCS: 71045; 94640; 99283; J7613

== ENCOUNTER 2023-08-30 15:51 | Emergency (ER) | payer MEDICARE, SELFPAY ==
[2023-01-24 23:07] VITALS: BMI 21.2
[2023-08-30 15:59] VITALS: BP 139/71; PULSE 87; RESP 16; TEMP 37.3; O2SAT 100; BMI 20.5
--- NOTE | 2023-08-30 16:04 | ED_ITS ---
HPI - Recheck/Abnormal Lab/Rx General Chief Complaint: Recheck/Abnormal Lab/Rx Stated Complaint: blood panel test Time Seen by Provider: 08/30/23 15:53 Source: patient Mode of arrival: Ambulatory History of Present Illness HPI narrative: 72-year-old female. Has an insulin-dependent diabetic. Also has hypertension and high cholesterol. Yesterday developed symptoms consistent with COVID. She tested herself at home and is positive for COVID. She contacted her primary doctor who is not in the local area. Apparently her last GFR was low so her primary provider was uncomfortable providing a prescription for Paxlovid because of this. She asked the patient to come to the emergency department to have her kidney function checked before prescribing Paxlovid. Related Data Previous Rx's Medication Instructions Recorded amoxicillin 875 mg-potassium 1 tab PO BID #12 tabs 01/25/23 clavulanate 125 mg tablet prednisone 20 mg tablet 20 mg PO DAILY #5 tabs 04/16/23 nirmatrelvir 150 mg-ritonavir 100 See Rx Instructions PO .COMPLEX 08/30/23 mg tablets in a dose pack #20 ea (Paxlovid) Allergies Allergy/AdvReac Type Severity Reaction Status Date / Time azithromycin Allergy Mild ITCHING Verified 08/30/23 16:00 magnesium sulfate Allergy Unknown I couldn't Verified 08/30/23 16:00 move Review of Systems Review of Systems Narrative: See HPI Patient History Medical History Asthma Surgical History History of breast biopsy Family History Mother Hypertension Father Heart attack Social History household members: none Smoking Status: Never smoker alcohol intake: current Smoking Status: Never smoker alcohol intake frequency: holidays/special occasions only Substance Use Type: does not use Exam Initial Vital Signs Initial Vital Signs: Vital Signs Temperature 99.2 F 08/30/23 15:59 Pulse Rate 87 08/30/23 15:59 Respiratory Rate 16 08/30/23 15:59 Blood Pressure 139/71 08/30/23 15:59 Pulse Oximetry 100 08/30/23 15:59 Oxygen Delivery Method Room Air 08/30/23 15:59 HENMT Head: normal to inspection and normocephalic Resp Effort & Inspection: normal respiratory effort Cardio Rate: regular rate Skin General: no rashes or lesions noted Neuro General: patient alert, patient awake and moves all extremities Course Orders Ordered: ED Orders 08/30/23 15:53 Basic Metabolic Panel Stat Vital Signs Vital signs: Vital Signs - 8 hr 08/30/23 15:59 Temperature 99.2 F Pulse Rate 87 Respiratory Rate 16 Blood Pressure 139/71 Pulse Oximetry 100 Oxygen Delivery Method Room Air MDM - Recheck/Abnormal Lab/Rx Lab Data 08/30/23 16:00 Labs: Lab Results 08/30/23 Range/Units 16:00 Sodium 134 L (137-145) mmol/L Potassium 4.6 (3.4-5.1) mmol/L Chloride 105 (98-107) mmol/L Carbon Dioxide 22 (22-32) mmol/L BUN 25 H (7-17) mg/dL Creatinine 1.57 H (0.52-1.04) mg/dL Estimated GFR 35 L (>60) mL/min BUN/Creatinine Ratio 15.9 (6-22) Glucose 291 H (80-110) mg/dL Calcium 8.5 (8.4-10.2) mg/dL [facility] Narrative Medical decision making narrative: Patient's GFR today does require dosing adjustment but is above a level. The patient has had Paxlovid in the past. Her other medications that she described to me do not need dosing adjustments. A prescription for Paxlovid was sent to the pharmacy of her choice. Discharge Plan Departure Patient Disposition: Home Clinical Impression: COVID-19 Instructions: COVID-19 Activity Restrictions/Additional Instructions: Continue to take all of your medications as directed. Contact your primary doctor for a follow-up. Return to the emergency department for new or worsening symptoms. Prescriptions: New Paxlovid 150-100 mg tablets,dose pack See Rx Instructions .ROUTE .COMPLEX Qty: 20 0RF Rx Instructions: take ONE 150 mg tablet of nirmatrelvir with ONE 100 mg tablet of ritonavir twice daily for 5 days No Action prednisone 20 mg tablet 20 mg PO DAILY Qty: 5 0RF amoxicillin-pot clavulanate 875-125 mg tablet 1 tab PO BID Qty: 12 0RF Referrals: Miscellaneous,Doctor, MD [Primary Care Provider] - Stand Alone Forms: Patient Portal/API
[2023-08-30 16:05] VITALS: PULSE 83; O2SAT 100
[2023-08-30 16:22] LABS: BUN Creatinine Ratio 15.9 (6-22); Blood Urea Nitrogen 25 mg/dL (7-17); Calcium 8.5 mg/dL (8.4-10.2); Carbon Dioxide 22 mmol/L (22-32); Chloride 105 mmol/L (98-107); Estimated Glomerular Filt Rate 35 mL/min (>60); Glucose 291 mg/dL (80-110); HEMOLYSIS 84 (0-50); Sodium 134 mmol/L (137-145)
[2023-08-30 16:23] LABS: Potassium 4.6 mmol/L (3.4-5.1)
[2023-08-30 16:30] VITALS: BP 123/57; PULSE 78; O2SAT 99
== END 2023-08-30 16:54 | disposition home or self-care (01) ==
PROVIDERS: Emergency Provider Emergency Medicine
DX: U07.1 COVID-19 (principal)
CPT/HCPCS: 80048; 99281; 99283

== ENCOUNTER 2024-02-01 16:36 | Emergency (ER) | payer MEDICARE, SELFPAY ==
[2023-01-24 23:07] VITALS: BMI 21.2
[2024-02-01 17:04] VITALS: BP 170/78; PULSE 87; RESP 14; TEMP 37.9; O2SAT 99; BMI 19.3
[2024-02-01 17:40] LABS: Bacteria Urine Occasional (0-1); RBC Urine 5-10/HPF (0-5/HPF); Squamous Epithelial Cell Urine 0-1 /HPF (0-5/HPF); Urine Volume 10mL (spun); WBC Urine 0-1/HPF (0-5/HPF)
[2024-02-01 18:06] LABS: Adenovirus Not Detected (Not Detect); B. parapertussis Not Detected (Not Detecte); Bordetella pertussis Not Detected (Not Detect); Chlamydophila pneumoniae Not Detected (Not Detect); Coronavirus 229E Not Detected (Not Detect); Coronavirus HKU1 Not Detected (Not Detect); Coronavirus NL 63 Not Detected (Not Detect); Coronavirus OC43 Not Detected (Not Detect); Human Metapneumovirus Not Detected (Not Detect); Human Rhinovirus/Enterovirus Not Detected (Not Detect); Influenza A Not Detected (Not Detect); Influenza B Not Detected (Not Detect); Mycoplasma pneumoniae Not Detected (Not Detect); Parainfluenza Virus 1 Not Detected (Not Detect); Parainfluenza Virus 2 Not Detected (Not Detect); Parainfluenza Virus 3 Not Detected (Not Detect); Parainfluenza Virus 4 Not Detected (Not Detect); Respiratory Syncytial Virus Not Detected (Not Detect); SARS- CoV-2 Not Detected (Not Detecte)
--- NOTE | 2024-02-01 18:14 | DI.RAD.S_ITS ---
PROCEDURE: XR CHEST 1V INDICATIONS: eval for PNA TECHNIQUE: One view of the chest was acquired. COMPARISON: [facility], CT, CT CHEST ABD PEL W CON, 01/24/2023, 19:41. [facility], CR, XR CHEST 1V, 01/24/2023, 18:33. [facility], CR, XR CHEST 2V, 02/07/2023, 16:46. [facility], CR, XR CHEST 1V, 04/16/2023, 22:42. FINDINGS: Surgical changes and devices: None. Lungs and pleura: Generalized abnormal interstitial prominence can be seen, which is similar to the prior. No superimposed focal infiltrate can be seen. No pneumothorax or pleural effusions are seen. Mediastinum: The cardiac contours are within normal limits. The aorta demonstrates calcification and tortuosity. Bones and chest wall: No suspicious bony lesions. Age-appropriate bony degenerative changes are seen. Overlying soft tissues appear unremarkable. IMPRESSION: No sebastian focal infiltrates are seen. Generalized interstitial prominence can be seen, which is similar to prior chest radiographs and most likely related to baseline parenchymal coarsening. If there is clinical concern for a developing pulmonary process, a short-term followup chest series (with PA and lateral views, performed in deep inspiration) is suggested for further evaluation. Dictated by: Nestor Bradford M.D. on 02/01/2024 at 17:36 Approved by: Nestor Bradford M.D. on 02/01/2024 at 17:37
--- NOTE | 2024-02-01 18:40 | ED_ITS ---
HPI - Fever <Jonna Prabhakar PA-C - Last Filed: 02/01/24 19:17> General Chief Complaint: Fever Stated Complaint: fever, chills x4days Time Seen by Provider: 02/01/24 18:39 Source: patient Mode of arrival: Ambulatory History of Present Illness HPI Narrative: 73-year-old female presents with chief complaint of fever. Symptoms began Monday night 4 days ago. She describes chills every night and a little bit of body aches. She also endorses a runny nose mild intermittent cough and occasional headache. She states she took it at home and it was 101.0, she took Tylenol early this morning and has not had any medication in the last 4 hours. She is denying any urinary symptoms, no recent travel, she is denying any flank pain, abdominal pain, nausea, joint stiffness, she shows me a small scrape on her left lower godfrey but this occurred yesterday. Symptoms began prior to that. She is denying any pain in the leg. No known contact with sick persons except a friend who ?has an ear infection?. History is significant for asthma since childhood, she has not used any rescue inhaler, she was treated here in August for COVID. She denies hypertension, she checks it at home she has occasional intermittent elevated readings. She states she is up-to-date with her PCP at the [facility]. She states she is borderline high sugars and is controlling them with diet. All other systems reviewed and are negative. Related Data Previous Rx's Medication Instructions Recorded amoxicillin 875 mg-potassium 1 tab PO BID #12 tabs 01/25/23 clavulanate 125 mg tablet prednisone 20 mg tablet 20 mg PO DAILY #5 tabs 04/16/23 nirmatrelvir 150 mg-ritonavir 100 See Rx Instructions PO .COMPLEX 08/30/23 mg tablets in a dose pack #20 ea (Paxlovid) nirmatrelvir 150 mg-ritonavir 100 See Rx Instructions PO .COMPLEX 08/30/23 mg tablets in a dose pack #20 ea (Paxlovid) amoxicillin 875 mg-potassium 1 tab PO BID #13 tabs 02/01/24 clavulanate 125 mg tablet Allergies Allergy/AdvReac Type Severity Reaction Status Date / Time azithromycin Allergy Mild ITCHING Verified 08/30/23 16:00 magnesium sulfate Allergy Unknown I couldn't Verified 08/30/23 16:00 move Review of Systems <Jonna Prabhakar PA-C - Last Filed: 02/01/24 19:17> Review of Systems Narrative: All other systems reviewed and are negative. Patient History <Jonna Prabhaakr PA-C - Last Filed: 02/01/24 19:17> Medical History Asthma Surgical History History of breast biopsy Family History Mother Hypertension Father Heart attack Social History household members: none Smoking Status: Never smoker alcohol intake: current Smoking Status: Never smoker alcohol intake frequency: holidays/special occasions only Substance Use Type: does not use Exam <Jonna Prabhakar PA-C - Last Filed: 02/01/24 19:17> Initial Vital Signs Initial Vital Signs: Vital Signs Temperature 100.3 F H 02/01/24 17:04 Pulse Rate 87 02/01/24 17:04 Respiratory Rate 14 02/01/24 17:04 Blood Pressure 170/78 H 02/01/24 17:04 Pulse Oximetry 99 02/01/24 17:04 Oxygen Delivery Method Room Air 02/01/24 17:04 Vital signs reviewed and are normal except for elevated systolic and temperature of 100.3?. Const Other: Seated, legs crossed, no distress, slightly nasal sounding. Work of breathing is normal. Pleasantly conversing. No accessory muscle usage. HENAL Head: normal to inspection and atraumatic Ears: external ears normal, TM normal on the right, EAC's normal, mastoids normal and no periauricular adenopathy Nose: external nose normal and nasal discharge (Clear bilaterally, scab old bleeding point right side middle turbinate) Face and sinus: normal facial exam, sinuses nontender and face symmetric Mouth: oral mucosae normal, lip normal, tongue normal, oropharynx normal and No muffled voice Teeth and gingiva: gingiva normal Throat: posterior oropharynx normal, uvula midline, posterior oropharynx abnormal (Clear drainage mild cobblestoning) and tonsils absent HENMT Other: Mild air-fluid level behind the left TM, slight injection of the TM, faint bulge. Neck Neck: full ROM, no meningeal signs, trachea midline and lymphadenopathy (Nontender mild anterior cervical bilaterally) Chest Chest: normal inspection of the chest Resp Effort & Inspection: normal respiratory effort and able to speak in complete sentences Auscultation: clear to auscultation bilaterally, no rales, no rhonchi and no wheezes Cardio Rate: regular rate Rhythm: regular rhythm GI Inspection: normal to inspection and no edema Palpation: soft and no hepatosplenomegaly Percussion: normal to percussion Auscultation: normal bowel sounds Other: No CVA tenderness. Skin General: no rashes or lesions noted, elasticity normal and turgor normal Extrem Other: Left lower leg anterior superficial abrasions no swelling, nontender, no purulence. <Ilya Sanchez DO - Last Filed: 02/01/24 19:24> Initial Vital Signs Initial Vital Signs: Vital Signs Temperature 100.3 F H 02/01/24 17:04 Pulse Rate 87 02/01/24 17:04 Respiratory Rate 14 02/01/24 17:04 Blood Pressure 170/78 H 02/01/24 17:04 Pulse Oximetry 99 02/01/24 17:04 Oxygen Delivery Method Room Air 02/01/24 17:04 Course <Jonna Prabhakar PA-C - Last Filed: 02/01/24 19:17> Orders Ordered: ED Orders 02/01/24 17:08 Respiratory Panel (Film Array) Stat 02/01/24 17:12 Urine Culture Stat Urine Microscopic Stat 02/01/24 18:14 XR chest 1V Stat Discontinued Medications Acetaminophen (Acetaminophen 325 Mg Tablet) 650 mg PO NOW ONE Stop: 02/01/24 18:57 Last Admin: 02/01/24 19:05 Dose: 650 mg Documented By: ELIEZER Amoxicillin/Clavulanate Potassium (Amoxicillin/Clav 875/125 Mg) 1 tab PO NOW ONE Stop: 02/01/24 19:00 Last Admin: 02/01/24 19:05 Dose: 1 tab Documented By: ELIEZER Vital Signs Vital signs: Vital Signs - 8 hr 02/01/24 17:04 02/01/24 19:05 02/01/24 19:08 Temperature 100.3 F H 100.0 F H 99.3 F Pulse Rate 87 88 Respiratory Rate 14 20 Blood Pressure 170/78 H 170/80 H Pulse Oximetry 99 99 Oxygen Delivery Method Room Air <Ilya Sanchez DO - Last Filed: 02/01/24 19:24> Orders Ordered: ED Orders 02/01/24 17:08 Respiratory Panel (Film Array) Stat 02/01/24 17:12 Urine Culture Stat Urine Microscopic Stat 02/01/24 18:14 XR chest 1V Stat Discontinued Medications Acetaminophen (Acetaminophen 325 Mg Tablet) 650 mg PO NOW ONE Stop: 02/01/24 18:57 Last Admin: 02/01/24 19:05 Dose: 650 mg Documented By: ELIEZER Amoxicillin/Clavulanate Potassium (Amoxicillin/Clav 875/125 Mg) 1 tab PO NOW ONE Stop: 02/01/24 19:00 Last Admin: 02/01/24 19:05 Dose: 1 tab Documented By: ELIEZER Vital Signs Vital signs: Vital Signs - 8 hr 02/01/24 17:04 02/01/24 19:05 02/01/24 19:08 Temperature 100.3 F H 100.0 F H 99.3 F Pulse Rate 87 88 Respiratory Rate 14 20 Blood Pressure 170/78 H 170/80 H Pulse Oximetry 99 99 Oxygen Delivery Method Room Air MDM - Fever <Jonna Prabhakar PA-C - Last Filed: 02/01/24 19:17> Lab Data Lab results narrative: Initial urine point of care test showed 2+ blood, microscopy showed occasional bacteria, 5-10 red blood cells per high-powered field. Comprehensive respiratory panel was completely negative. Labs: Lab Results 02/01/24 02/01/24 Range/Units 17:08 17:12 Urine RBC 5-10/hpf H (0-5/HPF) Urine WBC 0-1/hpf (0-5/HPF) Ur Squamous Epith Cells 0-1 /hpf (0-5/HPF) Urine Bacteria Occasional (0-1) (None) Vol Urine Centrifuged 10ml (spun) Chlamy pneumoniae PCR Not detected (Not Detect) Adenovirus (PCR) Not detected (Not Detect) B. pertussis DNA (PCR) Not detected (Not Detect) B.parapertussis DNA PCR Not detected (Not Detecte) Coronavirus OC43 (PCR) Not detected (Not Detect) Coronavirus HKU1 (PCR) Not detected (Not Detect) Coronavirus 229E (PCR) Not detected (Not Detect) SARS-CoV-2 (PCR) Not detected (Not Detecte) Coronavirus NL63 (PCR) Not detected (Not Detect) Human Metapneumovir PCR Not detected (Not Detect) Influenza Type A (PCR) Not detected (Not Detect) Influenza Type B (PCR) Not detected (Not Detect) M. pneumoniae (PCR) Not detected (Not Detect) Parainfluenza 1 (PCR) Not detected (Not Detect) Parainfluenza 2 (PCR) Not detected (Not Detect) Parainfluenza 3 (PCR) Not detected (Not Detect) Parainfluenza 4 (PCR) Not detected (Not Detect) RSV (PCR) Not detected (Not Detect) Entero/Rhino (PCR) Not detected (Not Detect) Urine Dip Bedside Urine Glucose 1000 mg/dl Bedside Urine Bilirubin - Negative Bedside Urine Ketone - Negative Urine Specific [place] 1.015 Bedside Urine Occult Blood ++ Bedside Urine pH 6.0 Bedside Urine Protein ++ 100 Bedside Urine Urobilinogen - Negative Bedside Urine Nitrite - Negative Bedside Urine Leukocytes - Negative Esterase Imaging Data Chest x-ray: My Impression: Deferred to radiologist's interpretation below. Radiologist's Impression: PROCEDURE: XR CHEST 1V INDICATIONS: eval for PNA TECHNIQUE: One view of the chest was acquired. COMPARISON: [facility], CT, CT CHEST ABD PEL W CON, 01/24/2023, 19:41. [facility], CR, XR CHEST 1V, 01/24/2023, 18:33. [facility], CR, XR CHEST 2V, 02/07/2023, 16:46. [facility], CR, XR CHEST 1V, 04/16/2023, 22:42. FINDINGS: Surgical changes and devices: None. Lungs and pleura: Generalized abnormal interstitial prominence can be seen, which is similar to the prior. No superimposed focal infiltrate can be seen. No pneum othorax or pleural effusions are seen. Mediastinum: The cardiac contours are within normal limits. The aorta demonstrates calcification and tortuosity. Bones and chest wall: No suspicious bony lesions. Age-appropriate bony degenerative changes are seen. Overlying soft tissues appear unremarkable. IMPRESSION: No sebastian focal infiltrates are seen. Generalized interstitial prominence can be seen, which is similar to prior chest radiographs and most likely related to baseline parenchymal coarsening. If there is clinical concern for a developing pulmonary process, a short-term followup chest series (with PA and lateral views, performed in deep inspiration) is suggested for further evaluation. Dictated by: Nestor Bradford M.D. on 02/01/2024 at 17:36 Approved by: Nestor Bradford M.D. on 02/01/2024 at 17:37 [facility] Narrative Medical decision making narrative: She is resting comfortably, normal vital signs except for temperature of 100.3?, no clinical findings on examination to suggest an acute bacterial infection except for her left eardrum is slightly reddened, her nasal tissues are reddened, no guarding with palpation of her sinuses, concern for early sinusitis versus early otitis media on the left. Her urine did show 2+ blood and bacteria on microscopy it was sent for urine culture and sensitivity those results are pending, otherwise she is asymptomatic and has no history of any chronic UTIs. Her main concern was her lungs as she has a history of pneumonia, she is denying any difficulty breathing, her chest x-ray was unremarkable compared to prior studies. She is treated empirically with the 1st dose of Augmentin for broad coverage of her ear and sinuses this will also cover her lungs, tonight along with some Tylenol. Improved vital signs at the time of discharge, afebrile. 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 Disc ussed follow up with her PCP, to seek medical attention if anything changes or her symptoms persist. Her comprehensive respiratory panel was negative. <Ilya Sanchez, DO - Last Filed: 02/01/24 19:24> Lab Data Labs: Lab Results 02/01/24 02/01/24 Range/Units 17:08 17:12 Urine RBC 5-10/hpf H (0-5/HPF) Urine WBC 0-1/hpf (0-5/HPF) Ur Squamous Epith Cells 0-1 /hpf (0-5/HPF) Urine Bacteria Occasional (0-1) (None) Vol Urine Centrifuged 10ml (spun) Chlamy pneumoniae PCR Not detected (Not Detect) Adenovirus (PCR) Not detected (Not Detect) B. pertussis DNA (PCR) Not detected (Not Detect) B.parapertussis DNA PCR Not detected (Not Detecte) Coronavirus OC43 (PCR) Not detected (Not Detect) Coronavirus HKU1 (PCR) Not detected (Not Detect) Coronavirus 229E (PCR) Not detected (Not Detect) SARS-CoV-2 (PCR) Not detected (Not Detecte) Coronavirus NL63 (PCR) Not detected (Not Detect) Human Metapneumovir PCR Not detected (Not Detect) Influenza Type A (PCR) Not detected (Not Detect) Influenza Type B (PCR) Not detected (Not Detect) M. pneumoniae (PCR) Not detected (Not Detect) Parainfluenza 1 (PCR) Not detected (Not Detect) Parainfluenza 2 (PCR) Not detected (Not Detect) Parainfluenza 3 (PCR) Not detected (Not Detect) Parainfluenza 4 (PCR) Not detected (Not Detect) RSV (PCR) Not detected (Not Detect) Entero/Rhino (PCR) Not detected (Not Detect) Urine Dip Bedside Urine Glucose 1000 mg/dl Bedside Urine Bilirubin - Negative Bedside Urine Ketone - Negative Urine Specific [place] 1.015 Bedside Urine Occult Blood ++ Bedside Urine pH 6.0 Bedside Urine Protein ++ 100 Bedside Urine Urobilinogen - Negative Bedside Urine Nitrite - Negative Bedside Urine Leukocytes - Negative Esterase Discharge Plan Departure Patient Disposition: Home Clinical Impression: Fever and chills Instructions: DI for Fever (Symptom) -- Adult Activity Restrictions/Additional Instructions: Your chest x-ray did not show any signs of pneumonia, your left eardrum is slightly reddened and could be an early ear infection, or you could have a low- grade sinus infection in the fluid is backing up. Your comprehensive respiratory panel was negative for any viruses at this point, I have given you your 1st antibiotic dose tonight, I would like you to fill the remaining prescription tomorrow after the holiday. Please do continue to take Tylenol as needed for pain or fever. I highly recommend that she follow up with your PCP. If you have any recurrence of symptoms, any new worrisome symptoms, please do not hesitate to return to the emergency department. Prescriptions: New amoxicillin-pot clavulanate 875-125 mg tablet 1 tab PO BID Qty: 13 0RF No Action prednisone 20 mg tablet 20 mg PO DAILY Qty: 5 0RF amoxicillin-pot clavulanate 875-125 mg tablet 1 tab PO BID Qty: 12 0RF Paxlovid 150-100 mg tablets,dose pack See Rx Instructions .ROUTE .COMPLEX Qty: 20 0RF Rx Instructions: take ONE 150 mg tablet of nirmatrelvir with ONE 100 mg tablet of ritonavir twice daily for 5 days Paxlovid 150-100 mg tablets,dose pack See Rx Instructions .ROUTE .COMPLEX Qty: 20 0RF Rx Instructions: take ONE 150 mg tablet of nirmatrelvir with ONE 100 mg tablet of ritonavir twice daily for 5 days Referrals: Miscellaneous,Doctor, [Primary Care Provider] - Stand Alone Forms: Patient Portal/API/Survey ED Sign-out <Ilya Sanchez, - Last Filed: 02/01/24 19:24> Cosign ED Attending Cosignature Attestation: Dr Sanchez Co-Sign Statement: I was available for consultation during this patient's emergency department visit. This chart is signed by myself for administrative purposes only. I did not have direct contact with this patient during this visit. They were seen independently by the APC.
[2024-02-01 19:05] VITALS: TEMP 37.8
[2024-02-01] MEDS: AMOXICILLIN/CLAV 875/125 MG 1 TAB PO (19:05)
[2024-02-01] MEDS: ACETAMINOPHEN 325 MG TABLET 650 MG PO (19:05)
[2024-02-01 19:08] VITALS: BP 170/80; PULSE 88; RESP 20; TEMP 37.4; O2SAT 99
== END 2024-02-01 19:22 | disposition home or self-care (01) ==
PROVIDERS: Emergency Medicine; Emergency Provider Physician Assistant Medical
DX: R50.9 Fever, unspecified (principal); R05.9 Cough, unspecified; R51.9 Headache, unspecified; R09.89 Other specified symptoms and signs involving the circulatory and respiratory systems; Z87.01 Personal history of pneumonia (recurrent)
CPT/HCPCS: 71045; 81003; 81015; 87086; 87633; 99283

== ENCOUNTER 2024-02-29 18:06 | Emergency (ER) | payer MEDICARE, SELFPAY ==
[2023-01-24 23:07] VITALS: BMI 21.2
[2024-02-29 18:17] VITALS: BP 144/66; PULSE 87; RESP 22; TEMP 37.1; O2SAT 100; BMI 20.7
[2024-02-29 19:05] LABS: COVID-19 CEPHEID 4-PLEX PCR Negative (Negative); Influenza A - CEPHEID Flu A NEGATIVE (NEGATIVE); Influenza B - CEPHEID Flu B NEGATIVE (NEGATIVE); Respiratory Syncytial Virus POSITIVE (Negative)
[2024-02-29 20:14] VITALS: O2SAT 99
[2024-02-29 20:15] VITALS: BP 178/79; PULSE 83; O2SAT 98
[2024-02-29 20:30] VITALS: BP 148/70; PULSE 84; O2SAT 99
--- NOTE | 2024-02-29 20:35 | ED.GENADULT ---
HPI - General Adult General Chief complaint: Upper Respiratory Symptoms Stated complaint: fever x 3 days Time Seen by Provider: 02/29/24 20:06 Source: patient Mode of arrival: Ambulatory History of Present Illness HPI narrative: 73-year-old female. Has a history of asthma who is here for evaluation of 3 days of cough and chest congestion and fever. She has albuterol at home. Has a nebulizer machine but is out of albuterol for the nebulizer no chest pain. Has been taking Tylenol for the fevers. Related Data Previous Rx's Medication Instructions Recorded amoxicillin 875 mg-potassium 1 tab PO BID #12 tabs 01/25/23 clavulanate 125 mg tablet prednisone 20 mg tablet 20 mg PO DAILY #5 tabs 04/16/23 nirmatrelvir 150 mg-ritonavir 100 See Rx Instructions PO .COMPLEX 08/30/23 mg tablets in a dose pack #20 ea (Paxlovid) nirmatrelvir 150 mg-ritonavir 100 See Rx Instructions PO .COMPLEX 08/30/23 mg tablets in a dose pack #20 ea (Paxlovid) amoxicillin 875 mg-potassium 1 tab PO BID #13 tabs 02/01/24 clavulanate 125 mg tablet albuterol sulfate 2.5 mg/0.5 mL 5 mg inhalation Q6H PRN shortness 02/29/24 solution for nebulization of breath or wheezing #30 ea Allergies Allergy/AdvReac Type Severity Reaction Status Date / Time azithromycin Allergy Mild ITCHING Verified 08/30/23 16:00 magnesium sulfate Allergy Unknown I couldn't Verified 08/30/23 16:00 move Review of Systems Review of Systems ROS Unobtainable: All systems reviewed & are unremarkable except as noted in HPI and below Patient History Medical History Asthma Surgical History History of breast biopsy Family History Mother Hypertension Father Heart attack Social History household members: none Smoking Status: Never smoker alcohol intake: current Smoking Status: Never smoker alcohol intake frequency: holidays/special occasions only Exam Initial Vital Signs Initial Vital Signs: Vital Signs Temperature 98.7 F 02/29/24 18:17 Pulse Rate 87 02/29/24 18:17 Respiratory Rate 22 02/29/24 18:17 Blood Pressure 144/66 H 02/29/24 18:17 Pulse Oximetry 100 02/29/24 18:17 Oxygen Delivery Method Room Air 02/29/24 18:17 Const General: cooperative, comfortable and No ill appearing HENMT Head: normal to inspection and normocephalic Resp Effort & Inspection: normal respiratory effort, cough, not labored, no respiratory distress and not tachypneic Auscultation: rhonchi and wheezes Cardio Rate: regular rate Extrem General: No edema Course Orders Ordered: ED Orders 02/29/24 18:25 Covid-19 + FLU A/B + RSV - PCR Stat 02/29/24 20:36 XR chest 1V Stat 02/29/24 20:37 RT Consult Eval and Treat Now Discontinued Medications Albuterol/Ipratropium (Albuterol/Ipratropium 3 Ml Ampul) 3 ml INH NOW ONE Stop: 02/29/24 20:37 Last Admin: 02/29/24 20:44 Dose: 3 ml Documented By: MR Vital Signs Vital signs: Vital Signs - 8 hr 02/29/24 20:14 02/29/24 20:15 02/29/24 20:15 Temperature Pulse Rate 83 Respiratory Rate Blood Pressure 178/79 H Pulse Oximetry 99 98 Oxygen Delivery Method 02/29/24 20:30 02/29/24 20:30 02/29/24 21:00 Temperature Pulse Rate 84 85 Respiratory Rate Blood Pressure 148/70 H Pulse Oximetry 99 99 Oxygen Delivery Method Room Air 02/29/24 21:00 Temperature 99.5 F Pulse Rate 85 Respiratory Rate 16 Blood Pressure 155/71 H Pulse Oximetry 99 Oxygen Delivery Method Room Air Medical Decision Making Medical Records Medical records reviewed: Yes I reviewed the patient's medical records. Lab Data Lab results reviewed: Yes I reviewed the patient's lab results. Labs: Lab Results 02/29/24 Range/Units 18:25 SARS-CoV-2 (PCR) Negative (Negative) Influenza A (RT-PCR) Flu a negative (NEGATIVE) Influenza B (RT-PCR) Flu b negative (NEGATIVE) RSV (PCR) Positive A (Negative) Imaging Data Chest x-ray: Radiologist's Impression: PROCEDURE: XR CHEST 1V INDICATIONS: eval for PNA TECHNIQUE: One view of the chest was acquired. COMPARISON: [facility], CR, XR CHEST 1V, 02/01/2024, 18:11. FINDINGS: Surgical changes and devices: None. Lungs and pleura: Lungs are clear. No pleural effusions or pneumothorax. Mediastinum: Mediastinal contours appear normal. Heart size is enlarged. Bones and chest wall: No suspicious bony lesions. Overlying soft tissues appear unremarkable. IMPRESSION: No acute pulmonary process. MDM Narrative Medical decision making narrative: Patient was positive for RSV. Chest x-ray is unremarkable. No chest pain. Received a breathing treatment here in the ER which did clear her wheezing. There was no indication for antibiotics as this is a viral illness. I will refill her nebulizer albuterol. She was given return precautions and follow-up instructions. She expressed understanding and agreement with plan. Discharge Plan Departure Patient Disposition: Home Clinical Impression: RSV infection Instructions: Respiratory Syncytial Virus Activity Restrictions/Additional Instructions: You can continue to take Tylenol and or ibuprofen for any fevers. Be sure that you were increasing your fluid intake. Return to the emergency department for new or worsening symptoms. Prescriptions: New albuterol sulfate 2.5 mg/0.5 mL solution for nebulization 5 mg inhalation Q6H PRN (Reason: shortness of breath or wheezing) Qty: 30 2RF No Action prednisone 20 mg tablet 20 mg PO DAILY Qty: 5 0RF amoxicillin-pot clavulanate 875-125 mg tablet 1 tab PO BID Qty: 13 0RF amoxicillin-pot clavulanate 875-125 mg tablet 1 tab PO BID Qty: 12 0RF Paxlovid 150-100 mg tablets,dose pack See Rx Instructions .ROUTE .COMPLEX Qty: 20 0RF Rx Instructions: take ONE 150 mg tablet of nirmatrelvir with ONE 100 mg tablet of ritonavir twice daily for 5 days Paxlovid 150-100 mg tablets,dose pack See Rx Instructions .ROUTE .COMPLEX Qty: 20 0RF Rx Instructions: take ONE 150 mg tablet of nirmatrelvir with ONE 100 mg tablet of ritonavir twice daily for 5 days Referrals: Miscellaneous,Doctor, MD [Primary Care Provider] - Stand Alone Forms: Patient Portal/API/Survey
--- NOTE | 2024-02-29 20:36 | DI.RAD.S_ITS ---
PROCEDURE: XR CHEST 1V INDICATIONS: eval for PNA TECHNIQUE: One view of the chest was acquired. COMPARISON: [facility], CR, XR CHEST 1V, 02/01/2024, 18:11. FINDINGS: Surgical changes and devices: None. Lungs and pleura: Lungs are clear. No pleural effusions or pneumothorax. Mediastinum: Mediastinal contours appear normal. Heart size is enlarged. Bones and chest wall: No suspicious bony lesions. Overlying soft tissues appear unremarkable. IMPRESSION: No acute pulmonary process. Dictated by: Marcelina Howard M.D. on 02/29/2024 at 20:49 Approved by: Marcelina Howard M.D. on 02/29/2024 at 20:49
[2024-02-29] MEDS: ALBUTEROL/IPRATROPIUM 3 ML AMPUL INH (20:44)
[2024-02-29 21:00] VITALS: BP 155/71; PULSE 85; RESP 16; TEMP 37.5; O2SAT 99
== END 2024-02-29 21:00 | disposition home or self-care (01) ==
PROVIDERS: Emergency Provider Emergency Medicine
DX: J98.8 Other specified respiratory disorders (principal); B97.4 Respiratory syncytial virus as the cause of diseases classified elsewhere; Z87.09 Personal history of other diseases of the respiratory system
CPT/HCPCS: 0241U; 71045; 94640; 99283

== ENCOUNTER 2024-11-29 14:58 | Emergency (ER) | payer MEDICARE, SELFPAY ==
[2023-01-24 23:07] VITALS: BMI 21.2
[2024-11-29 15:01] VITALS: BP 159/70; PULSE 78; RESP 16; TEMP 36.6; O2SAT 100; BMI 18.8
--- NOTE | 2024-11-29 15:19 | DI.US.S_ITS ---
PROCEDURE: US PERIPH VENOUS LOW EXTREM BI INDICATIONS: r/o DVT B L TECHNIQUE: Real-time imaging, as well as color and pulse Doppler interrogation, were performed of the deep veins of both legs from the inguinal ligament to the popliteal fossa, with documentation of the visualized calf veins. COMPARISON: None. FINDINGS: Right: The common femoral, femoral, popliteal, and the visualized calf veins are normally compressible, and free of intraluminal thrombus. Color and pulse Doppler demonstrate normal phasic intravascular flow. There is normal augmentation response to distal compression maneuver. Large Wade's cyst measuring 4.7 x 2.6 x 4.5 cm. This is palpable to the patient and uncomfortable to the patient. Left: The common femoral, femoral, popliteal, and the visualized calf veins are normally compressible, and free of intraluminal thrombus. Color and pulse Doppler demonstrate normal phasic intravascular flow. There is normal augmentation response to distal compression maneuver. IMPRESSION: No findings of deep venous thrombosis in either lower extremity. Large right Wade cyst is apparently symptomatic to the patient. This could potentially be treated by ultrasound-guided drainage with injection of steroids. Dictated by: Tigre Ashton M.D. on 11/29/2024 at 16:21 Approved by: Tigre Ashton M.D. on 11/29/2024 at 16:24
--- NOTE | 2024-11-29 17:22 | ED.EXTPRO ---
HPI - Extremity Problem <Traci Pacheco PA-C - Last Filed: 11/29/24 19:13> General Chief complaint: Extremity Problem,Nontraumatic Stated complaint: Possible blood clot//sent by doctor Time Seen by Provider: 11/29/24 15:10 Mode of arrival: Ambulatory History of Present Illness HPI Narrative: Ms. Nicolas is a very pleasant 74-year-old female with a past medical history of cirrhosis, CAD, CKD, anemia, recent liver biopsy 4 days ago being followed by who presents to the emergency department for bilateral lower extremity venous ultrasounds as advised by her PCP Dr. Marlyn Spear. Patient has a known right Wade cyst however she has recently been developing much worse swelling and pain in the right lower extremity therefore she was sent here for ultrasound for DVT rule out given her recent cancer diagnosis. Patient denies any pain with the left lower extremity, she is having increased swelling of the right knee with subsequent pain going down the right lower extremity. No pitting edema. No fevers or chills. No chest pain or shortness of breath. She is not currently anticoagulated. Patient states her GFR is 16 and she does not want any oral medications. Related Data Previous Rx's ?Medication ?Instructions ?Recorded amoxicillin 875 mg-potassium 1 tab PO BID #12 tabs 01/25/23 clavulanate 125 mg tablet prednisone 20 mg tablet 20 mg PO DAILY #5 tabs 04/16/23 nirmatrelvir 150 mg (10)-ritonavir See Rx Instructions PO .COMPLEX 08/30/23 100 mg (10) tablets in a dose pack #20 ea (Paxlovid) nirmatrelvir 150 mg (10)-ritonavir See Rx Instructions PO .COMPLEX 08/30/23 100 mg (10) tablets in a dose pack #20 ea (Paxlovid) amoxicillin 875 mg-potassium 1 tab PO BID #13 tabs 02/01/24 clavulanate 125 mg tablet albuterol sulfate 2.5 mg/0.5 mL 5 mg inhalation Q6H PRN shortness 02/29/24 solution for nebulization of breath or wheezing #30 ea oxycodone 5 mg tablet 2.5 mg (1/2 x 5 mg) PO Q8H PRN 11/29/24 pain #6 tabs Allergies Allergy/AdvReac Type Severity Reaction Status Date / Time azithromycin Allergy Mild ITCHING Verified 08/30/23 16:00 magnesium sulfate Allergy Unknown I couldn't Verified 08/30/23 16:00 move Review of Systems <Traci Pacheco PA-C - Last Filed: 11/29/24 19:13> Review of Systems ROS Unobtainable: All systems reviewed & are unremarkable except as noted in HPI and below Patient History <Traci Pacheco PA-C - Last Filed: 11/29/24 19:13> Medical History Asthma Surgical History History of breast biopsy Family History Mother Hypertension Father Heart attack Social History household members: none alcohol intake: current alcohol intake frequency: holidays/special occasions only Exam <Traci Pacheco PA-C - Last Filed: 11/29/24 19:13> Narrative Exam Narrative: GENERAL: 74 year old patient appears stated age. Elderly frail patient, in no acute distress. HEAD: Atraumatic. Normocephalic. EYES: No scleral icterus. No injection or drainage. NECK: Trachea midline. Cervical ROM intact. CARDIOVASCULAR: Regular rate RESPIRATORY: ?Nonlabored respirations. ?Speaking in clear, full sentences? EXTREMITIES: Edema of right knee with large palpable, firm cyst in the right popliteal fossa. No pitting edema of bilateral lower extremities. No color change, increased warmth or rashes. 2+ DP and PT pulses bilaterally and brisk cap refill in the toes. Patient has pain with flexion and extension of right knee however she is able to stand up and ambulate and feels more comfortable doing this. NEURO: AOx3. ?Clear speech. SITLT BL LE. SKIN: No rash or erythema of visible areas Initial Vital Signs Initial Vital Signs: Vital Signs Temperature 97.8 F 11/29/24 15:01 Pulse Rate 78 11/29/24 15:01 Respiratory Rate 16 11/29/24 15:01 Blood Pressure 159/70 H 11/29/24 15:01 Pulse Oximetry 100 11/29/24 15:01 Oxygen Delivery Method Room Air 11/29/24 15:01 <Huma Oh MD - Last Filed: 11/29/24 23:31> Initial Vital Signs Initial Vital Signs: Vital Signs Temperature 97.8 F 11/29/24 15:01 Pulse Rate 78 11/29/24 15:01 Respiratory Rate 16 11/29/24 15:01 Blood Pressure 159/70 H 11/29/24 15:01 Pulse Oximetry 100 11/29/24 15:01 Oxygen Delivery Method Room Air 11/29/24 15:01 Course <Traci Pacheco PA-C - Last Filed: 11/29/24 19:13> Orders Ordered: ED Orders 11/29/24 15:19 US periph venous low extrem bi Stat Discontinued Medications Lidocaine (Lidocaine 5% Patch) 1 each TOP NOW ONE Stop: 11/29/24 17:38 Last Admin: 11/29/24 17:54 Dose: 1 each Documented By: SAMM Oxycodone HCl (Oxycodone Ir 5 Mg Tablet) 2.5 mg PO NOW ONE Stop: 11/29/24 18:14 Last Admin: 11/29/24 18:21 Dose: 2.5 mg Documented By: SAMM Vital Signs Vital signs: Vital Signs - 8 hr 11/29/24 18:20 11/29/24 19:26 Temperature 98.4 F Pulse Rate 75 78 Respiratory Rate 18 18 Blood Pressure 166/73 H 174/73 H Pulse Oximetry 100 100 Oxygen Delivery Method Room Air Room Air <Huma Oh MD - Last Filed: 11/29/24 23:31> Orders Ordered: ED Orders 11/29/24 15:19 US periph venous low extrem bi Stat Discontinued Medications Lidocaine (Lidocaine 5% Patch) 1 each TOP NOW ONE Stop: 11/29/24 17:38 Last Admin: 11/29/24 17:54 Dose: 1 each Documented By: SAMM Oxycodone HCl (Oxycodone Ir 5 Mg Tablet) 2.5 mg PO NOW ONE Stop: 11/29/24 18:14 Last Admin: 11/29/24 18:21 Dose: 2.5 mg Documented By: SAMM Vital Signs Vital signs: Vital Signs - 8 hr 11/29/24 18:20 11/29/24 19:26 Temperature 98.4 F Pulse Rate 75 78 Respiratory Rate 18 18 Blood Pressure 166/73 H 174/73 H Pulse Oximetry 100 100 Oxygen Delivery Method Room Air Room Air MDM - Extremity (Nontraumatic) <Traci Pacheco PA-C - Last Filed: 11/29/24 19:13> Medical Records Attestation: I reviewed the patient's medical records. Imaging Data BL LE Venous US: Radiologist's Impression: PROCEDURE: US PERIPH VENOUS LOW EXTREM BI INDICATIONS: r/o DVT B L TECHNIQUE: Real-time imaging, as well as color and pulse Doppler interrogation, were performed of the deep veins of both legs from the inguinal ligament to the popliteal fossa, with documentation of the visualized calf veins. COMPARISON: None. FINDINGS: Right: The common femoral, femoral, popliteal, and the visualized calf veins are normally compressible, and free of intraluminal thrombus. Color and pulse Doppler demonstrate normal phasic intravascular flow. There is normal augmentation response to distal compression maneuver. Large Wade's cyst measuring 4.7 x 2.6 x 4.5 cm. This is palpable to the patient and uncomfortable to the patient. Left: The common femoral, femoral, popliteal, and the visualized calf veins are normally compressible, and free of intraluminal thrombus. Color and pulse Doppler demonstrate normal phasic intravascular flow. There is normal augmentation response to distal compression maneuver. IMPRESSION: No findings of deep venous thrombosis in either lower extremity. Large right Wade cyst is apparently symptomatic to the patient. This could potentially be treated by ultrasound-guided drainage with injection of steroids. Dictated by: Tigre Ashton M.D. on 11/29/2024 at 16:21 Approved by: Tigre Ashton M.D. on 11/29/2024 at 16:24 [facility] Narrative Medical decision making narrative: 74-year-old female with a past medical history of cirrhosis, CAD, CKD, anemia, recent liver biopsy 4 days ago being followed by who presents to the emergency department for bilateral lower extremity venous ultrasounds as advised by her PCP Dr. Marlyn Spear. Differential diagnosis includes but isn't limited to DVT, arthritis, Wade cyst, etc. On exam patient is in no acute distress, nontoxic appearing, vital signs appropriate however she does report 10/10 right knee pain with certain movements. Right knee is swollen with firm Wade cyst in the popliteal fossa. She is neurovascularly intact with bounding lower extremity pulses bilaterally and no pitting edema, no redness, erythema, rashes. As requested, patient had bilateral lower extremity ultrasounds which revealed no DVT however she does have a large right Wade cyst. Initially patient was treated with Lidoderm and Josep wrap as she declined any oral pain medications due to her concern of her liver and kidney failure however after discussing patient case with the pharmacist on-call, patient was agreeable to trialing very low-dose oxycodone, 2.5 mg, every 8 hours as needed severe pain. Discussed the risks of narcotics. Discussed supportive care and ER return precautions. Patient verbalized understanding of all information is agreeable with the plan, she is ambulatory and stable for discharge home. Discharge Plan Departure Patient Disposition: Home Clinical Impression: Ultrasound requested, Synovial cyst of popliteal space [Wade], right knee Instructions: DI for Wade Cyst Activity Restrictions/Additional Instructions: Dear Ms. Nicolas, Thank you for coming to the emergency department. Today you had ultrasounds of both of your lower extremities performed. Your ultrasound revealed no blood clot however you do have an extremely large Wade cyst behind the right knee. I recommend that you follow up with Orthopedics for possible drainage and management of this Wade cyst. Please use RICE therapy for your pain in addition to ibuprofen/acetaminophen. Rest the painful area. Ice the area of pain/swelling for at least 15 minutes, 4x a day. You can also use heat if this is more comfortable. Compress the area of swelling using a brace, wrap, or splint if applied. Elevate the painful or swollen extremity by supporting it above the level of the heart with pillows when sitting or laying. You have been prescribed a short course of narcotic medications. These are potentially dangerous and addictive medications that should be used carefully. While on these medications you cannot drive or operate heavy machinery. Additionally, you cannot sign legal documents or perform any duties such as this. Many people get constipated on narcotic medications so it would be advisable to discuss stool softeners with the pharmacist when you sisal picker your prescription. Please understand that we cannot provide further refills of narcotics or controlled substances through the ED and your pain management will need to be through your Primary Care Provider Please follow up with your primary care doctor within the next 2-3 days for ER follow-up. (If you do not have a PCP you can call [phone]. ?to schedule an appointment with an [facility] Primary Care Provider) IF YOU DEVELOP ANY NEW OR WORSENING SYMPTOMS, RETURN TO THE ER! Please read the attached instructions, they highlight more specific treatments and interventions for you at home. Thank you for letting me participate in your care, Traci Pacheco PA-C Prescriptions: New oxycodone 5 mg tablet 2.5 mg PO Q8H PRN (Reason: pain) Qty: 6 0RF No Action prednisone 20 mg tablet 20 mg PO DAILY Qty: 5 0RF amoxicillin-pot clavulanate 875-125 mg tablet 1 tab PO BID Qty: 13 0RF amoxicillin-pot clavulanate 875-125 mg tablet 1 tab PO BID Qty: 12 0RF Paxlovid 150-100 mg tablets,dose pack See Rx Instructions .ROUTE .COMPLEX Qty: 20 0RF Rx Instructions: take ONE 150 mg tablet of nirmatrelvir with ONE 100 mg tablet of ritonavir twice daily for 5 days Paxlovid 150-100 mg tablets,dose pack See Rx Instructions .ROUTE .COMPLEX Qty: 20 0RF Rx Instructions: take ONE 150 mg tablet of nirmatrelvir with ONE 100 mg tablet of ritonavir twice daily for 5 days albuterol sulfate 2.5 mg/0.5 mL solution for nebulization 5 mg inhalation Q6H PRN (Reason: shortness of breath or wheezing) Qty: 30 2RF Referrals: Miscellaneous,DoctorMD [Primary Care Provider, Medical] Tru Dorman MD [Physician, Orthopedic Surgery] Referral Note: Right Wade's Cyst Stand Alone Forms: Patient Portal/API ED Sign-out <Huma Oh MD - Last Filed: 11/29/24 23:31> [facility]: I was immediately available in the department for consultation throughout this patient's visit. Huma Oh MD
[2024-11-29] MEDS: LIDOCAINE 5% PATCH 1 EACH TOP (17:54)
[2024-11-29 18:20] VITALS: BP 166/73; PULSE 75; RESP 18; TEMP 36.9; O2SAT 100
[2024-11-29 19:26] VITALS: BP 174/73; PULSE 78; RESP 18; O2SAT 100
== END 2024-11-29 19:11 | disposition home or self-care (01) ==
PROVIDERS: Emergency Provider Physician Assistant
DX: M71.21 Synovial cyst of popliteal space [Baker], right knee (principal); R60.0 Localized edema
CPT/HCPCS: 93970; 99283